=== PATIENT | female | born 1955 | race Caucasian/White ===

== ENCOUNTER → 2021-04-03 10:13 | Outpatient (BNVA) | payer MEDICARE, MEDICAID, SELFPAY | PROVIDERS: PCP Internal Medicine; Visit Provider Obstetrics & Gynecology ==

== ENCOUNTER 2021-05-12 08:08 | Outpatient (REF) | payer MEDICARE, MEDICAID, SELFPAY ==
--- NOTE | ~2021-05-12 | MM_ITS ---
EXAMINATION: BONE DENSITOMETRY CLINICAL INDICATION: Encounter for screening for osteoporosis. COMPARISON: None (current study represents initial baseline exam). TECHNIQUE: Using a [employer] DXA System (software version: 13.1) manufactured by [employer], dual-energy x-ray absorptiometry was performed of the lumbar spine and left hip. The images are of good technical quality. Summary results are attached. FINDINGS: AP SPINE L1-L4: There is dextrocurvature lumbar spine with multilevel degenerative changes which may cause overestimation of the lumbar bone mineral density. BMD 1.314 g/cm2, Z-score 2.9, T-score 1.1, normal. LEFT FEMUR, NECK: BMD 0.781 g/cm2, Z-score -0.3, T-score -1.8, osteopenia. LEFT FEMUR, TOTAL: BMD 0.851 g/cm2, Z-score 0.1, T-score -1.2, osteopenia. IDENTIFIED RISK FACTORS: Height loss. Low calcium intake. Menopause. HISTORY OF FRACTURE: None listed. MEDICATIONS: None listed. MM/XR DEXA axial skeleton IMPRESSION: 1. DIAGNOSIS: Osteopenia based on the lowest T-score value of -1.8 in the femoral neck applying World Health Organization criteria. 2. 10-YEAR FRACTURE RISK PREDICTION, FRAX: Major osteoporotic fracture (clinical spine, forearm, hip or shoulder) 10.3%. Hip fracture 1.4%. 3. Treatment Recommendations: NOF guidelines recommend consideration for treatment in postmenopausal women and men age 50 and older presenting with the following: -A hip or vertebral (clinical or morphometric) fracture. -T-score less than or equal to -2.5 at the femoral neck or spine after appropriate evaluation to exclude secondary causes. -Low bone mass at the hip or spine and a 10-year fracture probability by FRAX of greater than or equal to 3% for hip fracture or greater than or equal to 20% for major osteoporotic fracture based on the [place] adapted WHO algorithm. 4. Other Recommendations: All treatment decisions require clinical judgment and consideration of individual patient factors, including patient preferences, comorbidities, previous drug use, risk factors not captured in the FRAX model (e.g. frailty, falls, vitamin D deficiency, increased bone turnover, interval significant decline in bone density) and possible under or overestimation of fracture risk by FRAX. Additional medical evaluation for secondary cause of low bone mineral density may be appropriate. FUTURE SCAN RECOMMENDATION: People with diagnosed cases of osteoporosis or at high risk for fracture should have regular bone mineral density tests. For patients eligible for Medicare, routine testing is allowed once every 2 years. The testing frequency can be increased to one year for patients who have rapidly progressing disease, those who are receiving or discontinuing medical therapy to restore bone mass, or have additional risk factors.
--- NOTE | ~2021-05-12 | MM_ITS ---
EXAMINATION: MM SCREENING DIGITAL BREAST TOMOSYNTHESIS, BILATERAL CLINICAL INFORMATION: Screening. Asymptomatic. The lifetime risk of breast cancer based on the Tyrer-Cuzick Model is 6%. COMPARISON: Mammography: None TECHNIQUE: Digital breast tomosynthesis is performed in both the craniocaudal and mediolateral oblique views along with computer-aided detection (CAD). Synthesized 2D images are generated from the tomosynthesis. FINDINGS: The breasts are almost entirely fatty (ACR BI-RADS breast composition Category a). There are no significant masses, abnormal calcifications, or other abnormalities. MM/MM tomosynthesis screening BI IMPRESSION: No specific mammographic evidence to suggest malignancy. ASSESSMENT: BI-RADS 1: Negative RECOMMENDATION: Routine annual mammography screening. This patient's information was entered into a reminder system with a target due date for their next mammogram.
== END 2021-05-12 08:09 | disposition home or self-care (01) ==
LOC: HO.MAMMO 08:08
PROVIDERS: Visit Provider Obstetrics & Gynecology
DX: Z12.31 Encounter for screening mammogram for malignant neoplasm of breast (principal); Z13.820 Encounter for screening for osteoporosis; Z78.0 Asymptomatic menopausal state; R29.890 Loss of height; E83.51 Hypocalcemia
CPT/HCPCS: 77063; 77067; 77080

== ENCOUNTER → 2021-05-25 12:53 | Outpatient (BNVA) | payer MEDICARE, MEDICAID, SELFPAY | PROVIDERS: PCP Internal Medicine; Visit Provider Obstetrics & Gynecology | DX: Z13.89 Encounter for screening for other disorder (principal) | CPT/HCPCS: Q3014 ==

== ENCOUNTER 2021-05-29 20:09 | Emergency (ER) | payer MEDICARE, MEDICAID, SELFPAY ==
[2021-05-29 20:33] VITALS: BP 129/86; PULSE 91; RESP 18; TEMP 37.6; O2SAT 94; BMI 27.1
[2021-05-29 22:50] LABS: MANUAL DIFF FLAG NO
[2021-05-29 22:51] LABS: Basophils Percent Auto 0.6 % (0-2); Hematocrit 43.1 % (37-47); Hemoglobin 13.9 g/dl (12.0-16.0); Imm Gran Abs Auto 0.05 X10*3/uL (0.00-0.03); Imm Gran Pct Auto 1.5 % (0.0-0.4); Lymphocytes Absolute Auto 0.5 X10*3/uL (1.2-4.9); Lymphocytes Percent Auto 13.8 % (20-40); Mean Corpuscular HGB Conc 32.3 g/dl (31.0-35.0); Mean Corpuscular Hemoglobin 28.3 pg (27.0-33.0); Mean Corpuscular Volume 87.8 fL (80-98); Mean Platelet Volume 9.7 fL (9.4-12.3); Monocytes Absolute Auto 0.5 X10*3/uL (0.1-1.2); Monocytes Percent Auto 13.8 % (2-11); Neutrophils Absolute Auto 2.4 X10*3/uL (2.0-8.3); Neutrophils Percent Auto 70.3 % (45-73); Platelet Count 118 X10*3/uL (160-400); Red Blood Count 4.91 X10*6/uL (4.20-5.50); Red Cell Distribution Width 14.9 % (11.0-16.0); White Blood Count 3.4 X10*3/uL (4.8-10.8)
[2021-05-29 23:24] LABS: Alanine Aminotransferase 22 U/L (0-31); Albumin Level 4.2 g/dL (3.5-5.0); Alkaline Phosphatase 109 U/L (39-117); Anion Gap 15 (12-20); Aspartate Amino Transferase 24 U/L (5-31); Bilirubin Direct 0.2 mg/dL (0.0-0.5); Bilirubin Total 0.4 mg/dL (0.0-1.0); Blood Urea Nitrogen 15 mg/dL (9-16); Calcium 9.2 mg/dL (8.4-10.2); Carbon Dioxide 25 mmol/L (22-29); Chloride 101 mmol/L (96-108); Creatinine Clr Calc Pharmacy 51.3; Estimated Glomerular Filt Rate > 60; Glucose Random 115 mg/dL (60-115); Lipase 13 U/L (8-78); Potassium 4.5 mmol/L (3.3-5.1); Sodium 136 mmol/L (135-145); Total Protein 7.3 g/dL (6.5-8.0)
--- NOTE | 2021-05-29 23:56 | ED_ITS ---
HPI - General Adult General Chief complaint: General Medical Stated complaint: DEHYDRATION Time Seen by Provider: 05/29/21 23:56 Source: patient Mode of arrival: ambulatory Limitations: no limitations History of Present Illness HPI narrative: Patient has history of anxiety depression comes here with multiple complaint body aches chills, vomiting, headache not drinking enough fluids was seen at [facility] did a rapid COVID which was negative urine shows few ketones patient was sent here for IV hydration patient says she vomited only 2 times today no abdominal pain patient lives alone denies any urinary complain ts Related Data Home Medications Medication Instructions Recorded Confirmed aripiprazole 2 mg tablet 2 mg PO DAILY 04/03/21 04/03/21 bupropion HCl 100 mg tablet,12 hr 100 mg PO DAILY 04/03/21 04/03/21 sustained-release bupropion HCl 150 mg 24 hr tablet, 150 mg PO QAM 04/03/21 04/03/21 extended release clonazepam 0.5 mg tablet 0.5 mg PO BID PRN 04/03/21 04/03/21 clonazepam 1 mg tablet 0.5 mg PO BID PRN 04/03/21 04/03/21 ibuprofen 800 mg tablet 800 mg PO Q8H 04/03/21 04/03/21 lamotrigine 200 mg tablet 200 mg PO BEDTIME 04/03/21 04/03/21 nicotine 14 mg/24 hr daily 1 patch TOPICAL DAILY 04/03/21 04/03/21 transdermal patch ropinirole 0.5 mg tablet 0.5 mg PO TID 04/03/21 04/03/21 sertraline 100 mg tablet 150 mg PO DAILY 04/03/21 04/03/21 sodium,potassium,mag sulfates 17.5 ml PO 04/03/21 04/03/21 gram-3.13 gram-1.6 gram oral soln Allergies Allergy/AdvReac Type Severity Reaction Status Date / Time vancomycin [Vancomycin] Allergy Intermediate RASH Verified 05/29/21 20:33 Review of Systems Review of Systems: Yes all other systems are reviewed and are negative [facility] Past Medical History Medical History (Updated 05/29/21 @ 20:34 by Ursula Moralez RN) Anxiety Arthritis COVID-19 Depression Emphysema lung Sleep apnea Surgical History H/O LEEP H/O: myomectomy History of bladder surgery History of Knee joint replacement status Previous back surgery Tubal ligation status Family History Family History Sister Breast CA Social History Social History Alcohol intake: current Advance Directives: No Advance Directives Information Provided: No Physical Exam Vital Signs: Vital Signs: Last Vital Signs Temp 100.1 F 05/30/21 00:00 Pulse 84 05/30/21 00:00 Resp 16 05/30/21 00:00 BP 137/79 05/30/21 00:00 Pulse Ox 99 05/30/21 00:00 Body Mass Index 27.1 Appearance: Alert. Oriented X3. No acute distress. Eyes: PERRLA, No Nystagmus ENT: Pharynx normal. Oral Mucosa moist Neck: Normal inspection. Neck supple. CVS: Normal heart rate and rhythm. Pulses normal. Respiratory: No respiratory distress. Equal air entry bilateral, no wheezing/r ales/rhonchi Abdomen: Soft and nontender. Bowel sounds are present, no mass palpable, no CVA tenderness Skin: Skin warm and dry. Normal skin color. Normal skin turgor. Extremities: No lower extremity edema. No calf tenderness Neuro: Oriented X 3. No motor deficit. Medical Decision Making MDM Narrative Medical decision making narrative: Patient multiple complaints is drinking apple juice in the ER will give Zofran sublingual check the UA labs are stable Lab Data Lab results reviewed: Yes I reviewed the patient's lab results. Result diagrams: 05/29/21 22:41 05/29/21 22:41 Labs: Lab Results 05/29/21 05/29/21 05/30/21 Range/Units 22:41 22:41 00:30 WBC 3.4 L (4.8-10.8) X10*3/uL RBC 4.91 (4.20-5.50) X10*6/uL Hgb 13.9 (12.0-16.0) g/dl Hct 43.1 (37-47) % MCV 87.8 (80-98) fL MCH 28.3 (27.0-33.0) pg MCHC 32.3 (31.0-35.0) g/dl RDW 14.9 (11.0-16.0) % Plt Count 118 L (160-400) X10*3/uL MPV 9.7 (9.4-12.3) fL Immature Gran % (Auto) 1.5 H (0.0-0.4) % Neut % (Auto) 70.3 (45-73) % Lymph % (Auto) 13.8 L (20-40) % Burnett % (Auto) 13.8 H (2-11) % Eos % (Auto) 0.0 (0-4) % Baso % (Auto) 0.6 (0-2) % Lymph # (Auto) 0.5 L (1.2-4.9) X10*3/uL Burnett # (Auto) 0.5 (0.1-1.2) X10*3/uL Eos # (Auto) 0.0 (0.0-0.4) X10*3/uL Baso # (Auto) 0.0 (0.0-0.2) X10*3/uL Abs Immat Gran (auto) 0.05 H (0.00-0.03) X10*3/uL Absolute Neuts (auto) 2.4 (2.0-8.3) X10*3/uL Absolute Nucleated RBC 0.000 (0.0-0.012) X10*3/uL Nucleated RBC % (auto) 0.0 (0.0-0.2) /100WBC Sodium 136 (135-145) mmol/L Potassium 4.5 (3.3-5.1) mmol/L Chloride 101 (96-108) mmol/L Carbon Dioxide 25 (22-29) mmol/L Anion Gap 15 (12-20) BUN 15 (9-16) mg/dL Creatinine 0.83 (0.5-1.4) mg/dL Estim Creat Clear Calc 51.3 Estimated GFR > 60 Random Glucose 115 (60-115) mg/dL Calcium 9.2 (8.4-10.2) mg/dL Total Bilirubin 0.4 (0.0-1.0) mg/dL Direct Bilirubin 0.2 (0.0-0.5) mg/dL AST 24 (5-31) U/L ALT 22 (0-31) U/L Alkaline Phosphatase 109 (39-117) U/L Total Protein 7.3 (6.5-8.0) g/dL Albumin 4.2 (3.5-5.0) g/dL Lipase 13 (8-78) U/L Urine Color DARK YELLOW Urine Appearance CLEAR Urine pH 6.0 (5.0-8.0) Ur Specific [place] >= 1.030 H (1.005-1.025) Urine Protein 1+ H (NEG-TRACE) MG/DL Urine Glucose (UA) NEG (NEG) MG/DL Urine Ketones 40 (NEG) MG/DL Urine Blood 1+ H (NEG) Urine Nitrite NEG (NEG) Ur Leukocyte Esterase NEG (NEG) Urine RBC 1-4 (0) /HPF Urine WBC 1-4 (0-4) /HPF Ur Squamous Epith Cells 1+ /LPF Urine Bacteria 1+ /LPF Hyaline Casts 0-2 /LPF Urine Mucus 2+ /LPF Discharge Plan Discharge Prescriptions: No Action bupropion HCl 150 mg tablet extended release 24 hr 150 mg PO QAM RF: 0 ropinirole 0.5 mg tablet 0.5 mg PO TID RF: 0 aripiprazole 2 mg tablet 2 mg PO DAILY RF: 0 lamotrigine 200 mg tablet 200 mg PO BEDTIME RF: 0 clonazepam 1 mg tablet 0.5 mg PO BID PRNRF: 0 sertraline 100 mg tablet 150 mg PO DAILY RF: 0 bupropion HCl 100 mg tablet sustained-release 12 hr 100 mg PO DAILY RF: 0 clonazepam 0.5 mg tablet 0.5 mg PO BID PRNRF: 0 ibuprofen 800 mg tablet 800 mg PO Q8H RF: 0 Suprep Bowel Prep Kit 17.5-3.13-1.6 gram recon soln PO RF: 0 nicotine 14 mg/24 hr patch 24 hour 1 patch topical DAILY RF: 0
[2021-05-30] VITALS: BP 137/79; PULSE 84; RESP 16; TEMP 37.8; O2SAT 99
[2021-05-30 00:36] LABS: Glucose Urine UA NEG (NEG); Leukocyte Esterase Urine NEG (NEG); Nitrite Urine NEG (NEG); Specific Gravity - Urine >= 1.030 (1.005-1.025); Urine Blood 1+ (NEG); Urine Ketones 40 MG/DL (NEG); Urine Protein 1+ MG/DL (NEG-TRACE)
[2021-05-30] MEDS: 0.9 % Sodium Chloride 1,000 ML 999 ML IVCONT (00:36)
[2021-05-30 00:50] LABS: Appearance Urine CLEAR; Color Urine DARK YELLOW
[2021-05-30 00:57] LABS: Bacteria Urine 1+ /LPF; Hyaline Casts Urine 0-2 /LPF; Mucus Urine 2+ /LPF; Squamous Epithelial Cell Urine 1+ /LPF
--- NOTE | 2021-07-04 15:17 | P.PNPS_ITS ---
TMS Daily Progress Note Daily TMS Progress Note Date of Service: 07/04/21 Week #: 1 Treatment #(12-17): 5 PHQ-9 Pre-Treatment (12-14): 19 PHQ-9 Most Recent (12-14): 19 Reviewed: TMS Tech Note Reviewed Verification: remapping completed I have reviewed the TMS Lead Manufacturing Technician Note and agree with the contents. The patient remains a candidate to continue TMS treatment per protocol.
== END 2021-05-30 01:56 | disposition home or self-care (01) ==
PROVIDERS: Emergency Provider Internal Medicine; PCP Internal Medicine
DX: B34.9 Viral infection, unspecified (principal); F32.9 Major depressive disorder, single episode, unspecified; R50.9 Fever, unspecified; F41.9 Anxiety disorder, unspecified; Z79.899 Other long term (current) drug therapy
CPT/HCPCS: 36415; 80048; 80076; 81001; 83690; 85025; 96360; 99283; 99284

== ENCOUNTER 2021-08-29 11:00 | Outpatient (RCR) | payer MEDICARE, MEDICAID, SELFPAY ==
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
--- NOTE | 2021-07-07 15:19 | P.PNPS_ITS ---
TMS Daily Progress Note Daily TMS Progress Note Date of Service: 07/07/21 Week #: 2 Treatment #(12-17): 8 PHQ-9 Pre-Treatment (12-14): 19 PHQ-9 Most Recent (12-14): 15 Reviewed: TMS Tech Note Reviewed Verification: I have reviewed the TMS Progressive Care Manager Note and agree with the contents. The patient remains a candidate to continue TMS treatment per pro tocol. Post-dated note.
--- NOTE | 2021-07-07 15:21 | HO.TMSDAILY2 ---
TMS Daily Progress Note Daily TMS Progress Note Date of Service: 07/06/21 Week #: 2 Treatment #(12-17): 7 PHQ-9 Pre-Treatment (12-14): 19 PHQ-9 Most Recent (12-14): 15 Reviewed: TMS Tech Note Reviewed Verification: I have reviewed the TMS Oil Field Equipment Mechanic Note and agree with the contents. The patient remains a candidate to continue TMS treatment per protocol. Post-dated note.
--- NOTE | 2021-07-07 15:22 | HO.TMSDAILY2 ---
TMS Daily Progress Note Daily TMS Progress Note Date of Service: 07/05/21 Week #: 2 Treatment #(12-17): 6 PHQ-9 Pre-Treatment (12-14): 19 PHQ-9 Most Recent (12-14): 15 Reviewed: TMS Tech Note Reviewed Verification: I have reviewed the TMS Nurse Gynecology Note and agree with the contents. The patient remains a candidate to continue TMS treatment per protocol. Post-dated note.
--- NOTE | 2021-07-07 15:24 | P.PNPS_ITS ---
TMS Daily Progress Note Daily TMS Progress Note Date of Service: 07/04/21 Week #: 1 Treatment #(12-17): 5 PHQ-9 Pre-Treatment (12-14): 19 PHQ-9 Most Recent (12-14): 16 Reviewed: TMS Tech Note Reviewed Verification: I have reviewed the TMS Quality Assurance Assistant Note and agree with the contents. The patient remains a candidate to continue TMS treatment per pro tocol. Post-dated note. REMAPPING
--- NOTE | 2021-07-07 15:25 | HO.TMSDAILY2 ---
TMS Daily Progress Note Daily TMS Progress Note Date of Service: 07/03/21 Week #: 1 Treatment #(12-17): 4 PHQ-9 Pre-Treatment (12-14): 19 PHQ-9 Most Recent (12-14): 16 Reviewed: TMS Tech Note Reviewed Verification: I have reviewed the TMS Fuel Operator Note and agree with the contents. The patient remains a candidate to continue TMS treatment per protocol. Post-dated note.REMAPING
--- NOTE | 2021-07-07 15:27 | P.PNPS_ITS ---
TMS Daily Progress Note Daily TMS Progress Note Date of Service: 06/30/21 Week #: 1 Treatment #(12-17): 3 PHQ-9 Pre-Treatment (12-14): 19 PHQ-9 Most Recent (12-14): 19 Reviewed: TMS Tech Note Reviewed Verification: I have reviewed the TMS Marketing Communications Assistant Note and agree with the contents. The patient remains a candidate to continue TMS treatment per pr otocol. Post-dated note.
--- NOTE | 2021-07-07 15:27 | HO.TMSDAILY2 ---
TMS Daily Progress Note Daily TMS Progress Note Date of Service: 06/29/21 Week #: 1 Treatment #(12-17): 2 PHQ-9 Pre-Treatment (12-14): 19 PHQ-9 Most Recent (12-14): 19 Reviewed: TMS Tech Note Reviewed Verification: I have reviewed the TMS Wastewater Treatment Plant Chemist Note and agree with the contents. The patient remains a candidate to continue TMS treatment per protocol. Post-dated note.
--- NOTE | 2021-07-07 15:28 | P.PNPS_ITS ---
TMS Daily Progress Note Daily TMS Progress Note Date of Service: 06/28/21 Week #: 1 Treatment #(12-17): 1 PHQ-9 Pre-Treatment (12-14): 19 PHQ-9 Most Recent (12-14): 19 Reviewed: TMS Tech Note Reviewed Verification: I have reviewed the TMS Senior Engineering Tech Note and agree with the contents. The patient remains a candidate to continue TMS treatment per pr otocol. Post-dated note.
--- NOTE | 2021-07-10 11:26 | P.PNPS_ITS ---
TMS Daily Progress Note Daily TMS Progress Note Date of Service: 07/05/21 Week #: 2 Treatment #(12-17): 6 PHQ-9 Pre-Treatment (12-14): 19 PHQ-9 Most Recent (12-14): 15 Reviewed: TMS Tech Note Reviewed Verification: I have reviewed the TMS Network Strategist Note and agree with the contents. The patient remains a candidate to continue TMS treatment per pro tocol. Late entry for 07/05
--- NOTE | 2021-07-10 22:11 | HO.TMSDAILY2 ---
TMS Daily Progress Note Daily TMS Progress Note Date of Service: 07/10/21 Week #: 2 Treatment #(12-17): 9 PHQ-9 Pre-Treatment (12-14): 19 PHQ-9 Most Recent (12-14): 19 Reviewed: TMS Tech Note Reviewed Verification: I have reviewed the TMS Farm Operations Technical Director Note and agree with the contents. The patient remains a candidate to continue TMS treatment per protocol.
--- NOTE | 2021-07-11 21:38 | P.PNPS_ITS ---
TMS Daily Progress Note Daily TMS Progress Note Date of Service: 07/11/21 Week #: 2 Treatment #(12-17): 10 PHQ-9 Pre-Treatment (12-14): 19 PHQ-9 Most Recent (12-14): 19 Reviewed: TMS Tech Note Reviewed Verification: I have reviewed the TMS Glass Blowing Instructor Note and agree with the contents. The patient remains a candidate to continue TMS treatment per p anant.
--- NOTE | 2021-07-13 22:17 | P.PNPS_ITS ---
TMS Daily Progress Note Daily TMS Progress Note Date of Service: 07/13/21 Week #: 3 Treatment #(12-17): 11 PHQ-9 Pre-Treatment (12-14): 19 PHQ-9 Most Recent (12-14): 19 Reviewed: TMS Tech Note Reviewed Verification: I have reviewed the TMS Clay Processing Labourer Note and agree with the contents. The patient remains a candidate to continue TMS treatment per p anant.
--- NOTE | 2021-07-14 17:51 | HO.TMSDAILY2 ---
TMS Daily Progress Note Daily TMS Progress Note Date of Service: 07/14/21 Week #: 3 Treatment #(12-17): 13 PHQ-9 Pre-Treatment (12-14): 19 PHQ-9 Most Recent (12-14): 19 Reviewed: TMS Tech Note Reviewed Verification: I have reviewed the TMS Pest Controller Note and agree with the contents. The patient remains a candidate to continue TMS treatment per protocol.
--- NOTE | 2021-07-14 17:53 | HO.TMSDAILY2 ---
TMS Daily Progress Note Daily TMS Progress Note Date of Service: 07/14/21 Week #: 3 Treatment #(12-17): 13 PHQ-9 Pre-Treatment (12-14): 19 PHQ-9 Most Recent (12-14): 19 Reviewed: TMS Tech Note Reviewed Verification: I have reviewed the TMS Boat Outboard Engine Mechanic Note and agree with the contents. The patient remains a candidate to continue TMS treatment per protocol.
--- NOTE | 2021-07-18 23:11 | HO.TMSDAILY2 ---
TMS Daily Progress Note Daily TMS Progress Note Date of Service: 07/18/21 Week #: 3 Treatment #(12-17): 14 PHQ-9 Pre-Treatment (12-14): 19 PHQ-9 Most Recent (12-14): 19 Reviewed: TMS Tech Note Reviewed Verification: I have reviewed the TMS Seaport Planning Manager Note and agree with the contents. The patient remains a candidate to continue TMS treatment per protocol.
--- NOTE | 2021-07-20 00:15 | HO.TMSDAILY2 ---
TMS Daily Progress Note Daily TMS Progress Note Date of Service: 07/20/21 Week #: 3 Treatment #(12-17): 15 PHQ-9 Pre-Treatment (12-14): 19 PHQ-9 Most Recent (12-14): 19 Reviewed: TMS Tech Note Reviewed Verification: I have reviewed the TMS Threading Machine Feeder Automatic Note and agree with the contents. The patient remains a candidate to continue TMS treatment per protocol.
--- NOTE | 2021-07-31 22:02 | P.PNPS_ITS ---
TMS Daily Progress Note Daily TMS Progress Note Date of Service: 07/31/21 Week #: 4 Treatment #(12-17): 18 PHQ-9 Pre-Treatment (12-14): 19 PHQ-9 Most Recent (12-14): 19 Reviewed: TMS Tech Note Reviewed Verification: I have reviewed the TMS Lost And Found Clerk Note and agree with the contents. The patient remains a candidate to continue TMS treatment per p anant.
--- NOTE | 2021-08-01 21:56 | P.PNPS_ITS ---
TMS Daily Progress Note Daily TMS Progress Note Date of Service: 08/01/21 Week #: 4 Treatment #(12-17): 18 PHQ-9 Pre-Treatment (12-14): 19 PHQ-9 Most Recent (12-14): 19 Reviewed: TMS Tech Note Reviewed Verification: I have reviewed the TMS Tube And Rod Straightener Note and agree with the contents. The patient remains a candidate to continue TMS treatment per p anant.
--- NOTE | 2021-08-03 20:30 | HO.TMSDAILY2 ---
TMS Daily Progress Note Daily TMS Progress Note Date of Service: 08/02/21 Week #: 4 Treatment #(12-17): 20 PHQ-9 Pre-Treatment (12-14): 19 PHQ-9 Most Recent (12-14): 19 Reviewed: TMS Tech Note Reviewed Verification: I have reviewed the TMS Asset Specialist Note and agree with the contents. The patient remains a candidate to continue TMS treatment per protocol.
--- NOTE | 2021-08-03 20:31 | HO.TMSDAILY2 ---
TMS Daily Progress Note Daily TMS Progress Note Date of Service: 08/03/21 Week #: 5 Treatment #(12-17): 21 PHQ-9 Pre-Treatment (12-14): 19 PHQ-9 Most Recent (12-14): 19 Reviewed: TMS Tech Note Reviewed Verification: I have reviewed the TMS Electrical & Instrumentation Supervisor Note and agree with the contents. The patient remains a candidate to continue TMS treatment per protocol.
--- NOTE | 2021-08-03 20:34 | P.PNPS_ITS ---
TMS Daily Progress Note Daily TMS Progress Note Date of Service: 08/03/21 Week #: 5 Treatment #(12-17): 21 PHQ-9 Pre-Treatment (12-14): 19 PHQ-9 Most Recent (12-14): 19 Reviewed: TMS Tech Note Reviewed Verification: I have reviewed the TMS Sieve Maker Note and agree with the contents. The patient remains a candidate to continue TMS treatment per p anant.
--- NOTE | 2021-08-04 20:36 | P.PNPS_ITS ---
TMS Daily Progress Note Daily TMS Progress Note Date of Service: 08/04/21 Week #: 5 Treatment #(12-17): 22 PHQ-9 Pre-Treatment (12-14): 19 PHQ-9 Most Recent (12-14): 19 Reviewed: TMS Tech Note Reviewed Verification: I have reviewed the TMS Wireless Team Member Note and agree with the contents. The patient remains a candidate to continue TMS treatment per p anant.
--- NOTE | 2021-08-08 21:32 | P.PNPS_ITS ---
TMS Daily Progress Note Daily TMS Progress Note Date of Service: 08/08/21 Week #: 5 Treatment #(12-17): 24 PHQ-9 Pre-Treatment (12-14): 19 PHQ-9 Most Recent (12-14): 19 Reviewed: TMS Tech Note Reviewed Verification: I have reviewed the TMS Product Design Manager Note and agree with the contents. The patient remains a candidate to continue TMS treatment per p anant.
--- NOTE | 2021-08-09 21:56 | P.PNPS_ITS ---
TMS Daily Progress Note Daily TMS Progress Note Date of Service: 08/09/21 Week #: 5 Treatment #(12-17): 25 PHQ-9 Pre-Treatment (12-14): 19 PHQ-9 Most Recent (12-14): 19 Reviewed: TMS Tech Note Reviewed Verification: I have reviewed the TMS Stitch Bonding Machine Tender Helper Note and agree with the contents. The patient remains a candidate to continue TMS treatment per p anant.
--- NOTE | 2021-08-10 21:27 | P.PNPS_ITS ---
TMS Daily Progress Note Daily TMS Progress Note Date of Service: 08/10/21 Week #: 6 Treatment #(12-17): 26 PHQ-9 Pre-Treatment (12-14): 19 PHQ-9 Most Recent (12-14): 19 Reviewed: TMS Tech Note Reviewed Verification: I have reviewed the TMS [place] Note and agree with the contents. The patient remains a candidate to continue TMS treatment per p anant.
--- NOTE | 2021-08-11 21:21 | HO.TMSDAILY2 ---
TMS Daily Progress Note Daily TMS Progress Note Date of Service: 08/11/21 Week #: 6 Treatment #(12-17): 27 PHQ-9 Pre-Treatment (12-14): 19 PHQ-9 Most Recent (12-14): 19 Reviewed: TMS Tech Note Reviewed Verification: I have reviewed the TMS [place] Drawer Note and agree with the contents. The patient remains a candidate to continue TMS treatment per protocol.
--- NOTE | 2021-08-14 21:16 | HO.TMSDAILY2 ---
TMS Daily Progress Note Daily TMS Progress Note Date of Service: 08/14/21 Week #: 6 Treatment #(12-17): 28 PHQ-9 Pre-Treatment (12-14): 19 PHQ-9 Most Recent (12-14): 19 Reviewed: TMS Tech Note Reviewed Verification: I have reviewed the TMS Senior Regulatory Affairs Specialist Note and agree with the contents. The patient remains a candidate to continue TMS treatment per protocol.
--- NOTE | 2021-08-16 20:33 | HO.TMSDAILY2 ---
TMS Daily Progress Note Daily TMS Progress Note Date of Service: 08/16/21 Week #: 6 Treatment #(12-17): 29 PHQ-9 Pre-Treatment (12-14): 19 PHQ-9 Most Recent (12-14): 19 Reviewed: TMS Tech Note Reviewed Verification: I have reviewed the TMS Primary Special Education Teacher Note and agree with the contents. The patient remains a candidate to continue TMS treatment per protocol.
--- NOTE | 2021-08-17 21:36 | P.PNPS_ITS ---
TMS Daily Progress Note Daily TMS Progress Note Date of Service: 08/17/21 Week #: 6 Treatment #(12-17): 30 PHQ-9 Pre-Treatment (12-14): 19 PHQ-9 Most Recent (12-14): 19 Reviewed: TMS Tech Note Reviewed Verification: I have reviewed the TMS Senior Design Engineering Specialist Note and agree with the contents. The patient remains a candidate to continue TMS treatment per p anant.
--- NOTE | 2021-08-21 21:48 | P.PNPS_ITS ---
TMS Daily Progress Note Daily TMS Progress Note Date of Service: 08/21/21 Week #: 7 Treatment #(12-17): 32 PHQ-9 Pre-Treatment (12-14): 19 PHQ-9 Most Recent (12-14): 19 Reviewed: TMS Tech Note Reviewed Verification: I have reviewed the TMS Planning Consultant Note and agree with the contents. The patient remains a candidate to continue TMS treatment per p anant.
--- NOTE | 2021-08-22 21:47 | HO.TMSDAILY2 ---
TMS Daily Progress Note Daily TMS Progress Note Date of Service: 08/18/21 Week #: 7 Treatment #(12-17): 31 PHQ-9 Pre-Treatment (12-14): 19 PHQ-9 Most Recent (12-14): 19 Reviewed: TMS Tech Note Reviewed Verification: I have reviewed the TMS Real Estate Administrator Note and agree with the contents. The patient remains a candidate to continue TMS treatment per protocol.
--- NOTE | 2021-08-22 21:50 | HO.TMSDAILY2 ---
TMS Daily Progress Note Daily TMS Progress Note Date of Service: 08/22/21 Week #: 7 Treatment #(12-17): 33 PHQ-9 Pre-Treatment (12-14): 19 PHQ-9 Most Recent (12-14): 19 Reviewed: TMS Tech Note Reviewed Verification: I have reviewed the TMS Director Of Infection Prevention Note and agree with the contents. The patient remains a candidate to continue TMS treatment per protocol.
--- NOTE | 2021-08-24 22:29 | P.PNPS_ITS ---
TMS Daily Progress Note Daily TMS Progress Note Date of Service: 08/24/21 Week #: 8 Treatment #(12-17): 34 PHQ-9 Pre-Treatment (12-14): 19 PHQ-9 Most Recent (12-14): 19 Reviewed: TMS Tech Note Reviewed Verification: I have reviewed the TMS Customer Relations Assistant Note and agree with the contents. The patient remains a candidate to continue TMS treatment per p anant.
--- NOTE | 2021-08-25 22:34 | HO.TMSDAILY2 ---
TMS Daily Progress Note Daily TMS Progress Note Date of Service: 08/25/21 Week #: 8 Treatment #(12-17): 35 PHQ-9 Pre-Treatment (12-14): 19 PHQ-9 Most Recent (12-14): 19 Reviewed: TMS Tech Note Reviewed Verification: I have reviewed the TMS Poultry Scientist Note and agree with the contents. The patient remains a candidate to continue TMS treatment per protocol.
--- NOTE | 2021-08-29 22:44 | P.PNPS_ITS ---
TMS Daily Progress Note Daily TMS Progress Note Date of Service: 08/29/21 Week #: 8 Treatment #(12-17): 36 PHQ-9 Pre-Treatment (12-14): 19 PHQ-9 Most Recent (12-14): 19 Reviewed: TMS Tech Note Reviewed Verification: I have reviewed the TMS Bobtailer Note and agree with the contents. The patient remains a candidate to continue TMS treatment per p anant.
--- NOTE | 2021-08-31 11:03 | HO.TMSDAILY2 ---
TMS Daily Progress Note Daily TMS Progress Note Date of Service: 09/01/21 Treatment #(12-17): 36 PHQ-9 Pre-Treatment (12-14): 19 PHQ-9 Most Recent (12-14): 19 Verification: I have reviewed the TMS Physician Credentialing Specialist Note and agree with the contents. The patient remains a candidate to continue TMS treatment per protocol.
--- NOTE | 2021-08-31 14:54 | HO.TMSDAILY2 ---
TMS Daily Progress Note Daily TMS Progress Note Date of Service: 08/29/21 Week #: 8 Treatment #(12-17): 36 PHQ-9 Pre-Treatment (12-14): 19 PHQ-9 Most Recent (12-14): 19 Reviewed: TMS Tech Note Reviewed Verification: I have reviewed the TMS Direct Care Staffer Note and agree with the contents. The patient remains a candidate to continue TMS treatment per protocol.
--- NOTE | 2021-11-24 13:29 | P.PNPS_ITS ---
TMS Daily Progress Note Daily TMS Progress Note Date of Service: 08/07/21 Week #: 5 Treatment #(12-17): 23 PHQ-9 Pre-Treatment (12-14): 19 PHQ-9 Most Recent (12-14): 14 Reviewed: TMS Tech Note Reviewed Verification: I have reviewed the TMS Group Program Manager Note and agree with the contents. The patient remains a candidate to continue TMS treatment per pr otocol. Assessment and Plan (1) Depression, major, severe recurrence: Status: Acute (2) Generalized anxiety disorder: Status: Acute pt has been somewhat irritable discussed lowering wellbutrin
== END 2021-08-30 09:44 | disposition home or self-care (01) ==
LOC: HO.PTMS 11:00
PROVIDERS: Visit Provider Psychiatry & Neurology Psychiatry
DX: F33.2 Major depressive disorder, recurrent severe without psychotic features (principal); F41.1 Generalized anxiety disorder
CPT/HCPCS: 90868; 90869

== ENCOUNTER 2022-09-27 | Outpatient (REF) | payer MEDICARE, MEDICAID, SELFPAY | END 2022-09-27 00:01 | disposition home or self-care (01) | LOC: CF | PROVIDERS: Visit Provider Psychiatry & Neurology Psychiatry | DX: Z13.89 Encounter for screening for other disorder (principal) ==

== ENCOUNTER 2022-09-27 13:32 | Outpatient (REF) | payer MEDICARE, MEDICAID, SELFPAY ==
--- NOTE | ~2022-09-27 | MM_ITS ---
EXAMINATION: MM SCREENING DIGITAL BREAST TOMOSYNTHESIS, BILATERAL CLINICAL INFORMATION: Screening. Asymptomatic. COMPARISON: Mammography: May 12, 2021 and studies dating back to September 30, 2014 TECHNIQUE: Digital breast tomosynthesis is performed in both the craniocaudal and mediolateral oblique views along with computer-aided detection (CAD). Synthesized 2D images are generated from the tomosynthesis. FINDINGS: There are scattered areas of fibroglandular density (ACR BI-RADS breast composition Category b). There are no significant masses, abnormal calcifications, or other abnormalities. MM/MM tomosynthesis screening BI IMPRESSION: No significant changes from prior exam. ASSESSMENT: BI-RADS 1: Negative RECOMMENDATION: Routine annual mammography screening. This patient's information was entered into a reminder system with a target due date for their next mammogram.
== END 2022-09-27 13:33 | disposition home or self-care (01) ==
LOC: HO.MAMMO 13:32
PROVIDERS: PCP Internal Medicine; Visit Provider Obstetrics & Gynecology
DX: Z12.31 Encounter for screening mammogram for malignant neoplasm of breast (principal); F33.9 Major depressive disorder, recurrent, unspecified; F41.1 Generalized anxiety disorder
CPT/HCPCS: 77063; 77067; 90833; Q3014

== ENCOUNTER → 2023-01-16 15:47 | Outpatient (BNVA) | payer MEDICARE, MEDICAID, SELFPAY | PROVIDERS: PCP Internal Medicine; Visit Provider Psychiatry & Neurology Psychiatry | DX: F32.5 Major depressive disorder, single episode, in full remission (principal); F41.1 Generalized anxiety disorder | CPT/HCPCS: 99212 ==

== ENCOUNTER 2023-09-09 13:40 | Outpatient (AMB) | payer MEDICARE, MEDICAID, SELFPAY ==
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
== END 2023-09-09 14:54 | disposition home or self-care (01) ==
LOC: HO.HOP 13:40
PROVIDERS: PCP Internal Medicine; Visit Provider Psychiatry & Neurology Psychiatry
DX: F33.9 Major depressive disorder, recurrent, unspecified (principal); F41.1 Generalized anxiety disorder
CPT/HCPCS: 99214

== ENCOUNTER → 2023-09-09 13:40 | Outpatient (BNVA) | payer MEDICARE, MEDICAID, SELFPAY | PROVIDERS: PCP Internal Medicine; Visit Provider Psychiatry & Neurology Psychiatry | DX: F33.9 Major depressive disorder, recurrent, unspecified (principal); F41.1 Generalized anxiety disorder | CPT/HCPCS: 99212 ==

== ENCOUNTER 2023-12-19 17:02 | Outpatient (AMB) | payer MEDICARE, MEDICAID, SELFPAY ==
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
== END 2023-12-19 17:02 | disposition home or self-care (01) ==
LOC: HO.HOP 17:02
PROVIDERS: PCP Internal Medicine; Visit Provider Psychiatry & Neurology Psychiatry
DX: F33.2 Major depressive disorder, recurrent severe without psychotic features (principal); R41.0 Disorientation, unspecified
CPT/HCPCS: 99214

== ENCOUNTER → 2023-12-19 17:02 | Outpatient (BNVA) | payer MEDICARE, MEDICAID, SELFPAY | PROVIDERS: PCP Internal Medicine; Visit Provider Psychiatry & Neurology Psychiatry | DX: F33.9 Major depressive disorder, recurrent, unspecified (principal); A69.20 Lyme disease, unspecified; R41.0 Disorientation, unspecified; R41.3 Other amnesia ==

== ENCOUNTER 2024-01-02 07:45 | Outpatient (REF) | payer MEDICARE, MEDICAID, SELFPAY ==
[2024-01-02 08:10] LABS: MANUAL DIFF FLAG NO
[2024-01-02 08:13] LABS: Basophils Percent Auto 0.5 % (0-2); Eosinophils Absolute Auto 0.2 X10*3/uL (0.0-0.4); Eosinophils Percent Auto 3.6 % (0-4); Hematocrit 40.5 % (37.0-47.0); Imm Gran Abs Auto 0.03 X10*3/uL (0.00-0.03); Imm Gran Pct Auto 0.5 % (0.0-0.4); Lymphocytes Absolute Auto 1.5 X10*3/uL (1.2-4.9); Lymphocytes Percent Auto 24.4 % (20-40); Mean Corpuscular HGB Conc 32.1 g/dl (31.0-35.0); Mean Corpuscular Hemoglobin 28.1 pg (27.0-33.0); Mean Corpuscular Volume 87.7 fL (80.0-98.0); Mean Platelet Volume 9.3 fL (9.4-12.3); Monocytes Absolute Auto 0.4 X10*3/uL (0.1-1.2); Monocytes Percent Auto 6.3 % (2-11); Neutrophils Percent Auto 64.7 % (45-73); Platelet Count 202 X10*3/uL (160-400); Red Blood Count 4.62 X10*6/uL (4.20-5.50); Red Cell Distribution Width 14.1 % (11.0-16.0); White Blood Count 6.2 X10*3/uL (4.8-10.8)
[2024-01-02 08:17] LABS: Ammonia 25 umol/L (13-55)
[2024-01-02 08:33] LABS: Appearance Urine Clear; Color Urine Yellow; Glucose Urine UA Negative (Negative); Leukocyte Esterase Urine Negative (Negative); Nitrite Urine Negative (Negative); Urine Blood Negative (Negative); Urine Ketones Negative (Negative); Urine Protein Negative (Neg-Trace)
[2024-01-02 08:36] LABS: Alanine Aminotransferase 14 U/L (0-31); Albumin Level 4.1 g/dL (3.5-5.0); Alkaline Phosphatase 114 U/L (39-117); Anion Gap 11 (12-20); Aspartate Amino Transferase 16 U/L (5-31); Bilirubin Total 0.3 mg/dL (0.0-1.0); Blood Urea Nitrogen 23 mg/dL (9-16); Calcium 9.4 mg/dL (8.4-10.2); Carbon Dioxide 29 mmol/L (22-29); Chloride 106 mmol/L (96-108); Cholesterol 219 mg/dL (<200); Estimated Glomerular Filt Rate > 60; Glucose Fasting 98 mg/dL (60-99); HDL Cholesterol 60 mg/dL (>40); LDL Cholesterol Calculated 141 mg/dL (<100); Potassium 4.1 mmol/L (3.3-5.1); Sodium 142 mmol/L (135-145); Total Protein 7.4 g/dL (6.5-8.0); Triglycerides 94 mg/dL (<150)
[2024-01-02 08:50] LABS: TSH reflex Free T4 1.24 uIU/mL (0.32-4.0)
[2024-01-02 09:05] LABS: Folate 13.9 ng/mL (> or = 4.0); Vitamin B12 508 pg/mL (200-900)
[2024-01-06 00:44] LABS: Lamotrigine Lamictal 5.5 mcg/mL (2.5-15.0)
[2024-01-06 23:38] LABS: Lyme Blot 4.51 index
[2024-01-07 13:23] LABS: 18 KD (IgG) Band REACTIVE; 23 KD (IgG) Band NON-REACTIVE; 23 KD (IgM) Band REACTIVE; 28 KD (IgG) Band NON-REACTIVE; 30 KD (IgG) Band NON-REACTIVE; 39 KD (IgM) Band NON-REACTIVE; 39KD (IgG) Band REACTIVE; 41 KD (IgM) Band NON-REACTIVE; 41KD (IgG) Band REACTIVE; 45 KD (IgG) Band NON-REACTIVE; 58 KD (IgG) Band REACTIVE; 66 KD (IgG) Band NON-REACTIVE; 93 KD (IgG) Band NON-REACTIVE; Lyme Abs Screen POSITIVE; Lyme IgG Blot Interp NEGATIVE (NEGATIVE); Lyme IgM Blot Interp NEGATIVE (NEGATIVE)
== END 2024-01-02 07:46 | disposition home or self-care (01) ==
LOC: HO.LAB 07:45
PROVIDERS: PCP Internal Medicine; Visit Provider Psychiatry & Neurology Psychiatry
DX: F33.9 Major depressive disorder, recurrent, unspecified (principal); A69.20 Lyme disease, unspecified; R41.0 Disorientation, unspecified; R41.3 Other amnesia
CPT/HCPCS: 36415; 80053; 80061; 80175; 81003; 82140; 82607; 82746; 84443; 85025; 86617; 86618

== ENCOUNTER 2024-01-30 14:43 | Outpatient (AMB) | payer MEDICARE, MEDICAID, SELFPAY ==
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
== END 2024-01-30 16:21 | disposition home or self-care (01) ==
LOC: HO.HOP 14:43
PROVIDERS: PCP Internal Medicine; Visit Provider Psychiatry & Neurology Psychiatry
DX: R41.3 Other amnesia (principal); F33.9 Major depressive disorder, recurrent, unspecified; F41.1 Generalized anxiety disorder; A69.20 Lyme disease, unspecified
CPT/HCPCS: 90833; 99213

== ENCOUNTER → 2024-01-30 14:43 | Outpatient (BNVA) | payer MEDICARE, MEDICAID, SELFPAY | PROVIDERS: PCP Internal Medicine; Visit Provider Psychiatry & Neurology Psychiatry | DX: F41.1 Generalized anxiety disorder (principal); F33.9 Major depressive disorder, recurrent, unspecified; R41.3 Other amnesia; A69.20 Lyme disease, unspecified; Z71.89 Other specified counseling | CPT/HCPCS: 99212 ==

== ENCOUNTER 2024-05-14 14:55 | Outpatient (AMB) | payer MEDICARE, MEDICAID, SELFPAY ==
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
--- OUTSIDE RECORDS SUMMARY | 2024-05-14 14:57 | XMS_ITS | Continuity of Care Document ---
Author Organization [facility] Address [address] [place] [address]- Care Team Providers Care Head Banquet Waitress Name Role Phone Arleen LIRA, Max Christine Primary Care Physician [facility] - 07/14/21 [facility] [address] [place], [place] [address] Allergies, Adverse Reactions, Alerts Substance Reaction Severity Status vancomycin rash Active Immunizations Given and Recorded Vaccine Date Status Refusal Reason tetanus-diphtheria toxoids (Td) 01/01/19 Given tetanus-diphtheria toxoids (Td) 1 05/08/00 Given influenza virus vaccine, inactivated 2 08/15/18 Gi vinicio influenza virus vaccine, inactivated 3 09/23/17 Gi vinicio influenza virus vaccine, inactivated 4 01/04/15 Gi vinicio influenza virus vaccine, inactivated 08/03/13 Give n influenza virus vaccine, inactivated 11/24/12 Give n Pneumococcal Vaccine (oldterm) 01/10/09 Given Tet/Diphth/Acel, Pertussis (oldterm) 5 01/10/09 Gi vinicio Influenza Virus Vaccine (oldterm) 6 01/10/09 Given Influenza Virus Vaccine (oldterm) 7 10/14/07 Given 1Admin Note: per paper chart 2Result Comment: [08/15/2018] [id number] 3Result Comment: [09/23/2017] [id number] 4Admin Note: FLUZONE [id number] 5Admin Note: sanofi pasteur Vaccine information statement (05/29/06) given to patient. 6Admin Note: pt declined, unavailable 7Admin Note: Declined Medications Abilify 2 mg oral tablet 2 mg, 1, tablet, By Mouth, Daily, Refills 0, Maintenance, 01/18/20 16:32:00 EST Start Date: 01/18/20 Status: Ordered Klonopin 1 mg oral tablet 0.5 mg, 0.5, tablet, By Mouth, 2 times a day, PRN anxiety, 0 Refills, Maintenance Start Date: 01/10/09 Status: Ordered lamotrigine 200 mg oral tablet 1 tablet = 200 mg, By Mouth, Daily at bedtime, 0 Refills, Maintenance, 01/07/15 14:40:08 Start Date: 01/07/15 Status: Ordered nicotine 14 mg/24 hr transdermal film, extended release 1 patch, Topically, Daily, # 28 patch, 1 Refills, Acute, 05/16/20 17:42:00 EDT, [facility], 28, APPLY 1 PATCH TOPICALLY DAILY, 154.94, cm, 01/18/20 15:49:00 EST, Height, 61.1, kg, 07/09/18 8:13:00 EDT, Dry Weight Start Date: 05/16/20 Status: Ordered QUEtiapine 25 mg oral tablet TAKE 1 TO 2 TABLETS BY MOUTH AT BEDTIME Start Date: 01/18/20 Status: Ordered Requip 0.5 mg oral tablet 1.5, mg, 3, tablet, By Mouth, Daily at bedtime, 0, 0, 01/10/09 14:56:23, Print BISI Number, [id number], Constant Indicator Start Date: 01/10/09 Status: Ordered sertraline 100 mg oral tablet 1.5 tablet = 150 mg, Daily, 0 Refills, Maintenance, 07/01/18 11:09:34 EDT Start Date: 07/01/18 Status: Ordered TENS UNIT TENS UNIT, See Instructions, # 1 units, Refills 0, Tot. Refills 0, Maintenance, use QID and prn, 02/07/17 13:38:46, Compound Start Date: 02/07/17 Status: Ordered Wellbutrin XL 300 mg/24 hours oral tablet, extended release 1 tablet = 300 mg, By Mouth, Every 24 hours, 0 Refills, Maintenance, 06/01/14 9:32:04 Start Date: 06/01/14 Status: Ordered Problem List Condition Effective Dates Status Health Status Inform ant Acute Lyme disease(Confirmed) 06/18/21 Active Cervical dysplasia(Confirmed) Active Cervical spondylosis with radiculopathy(Confirmed) Active section(Confirmed) Active DDD (degenerative disc disea se), lumbar with deg arthritis changes 6 lumbar vert bodies(Confirmed) 03/27/13 Active Depression(Confirmed) Active Ex-cigarette smoker(Confirmed) 1994 Active Family history of breast cancer(Confirmed) 01/10/09 Active Helicobacter pylori (H. pylo ri) infection(Confirmed) Active Inguinal hernia-bilat repair(Confirmed) Active Lumbar radiculopathy - TLIF(Confirmed) 01/18/15 Active JACKSON - Obstructive sleep apnea(Confirmed) Active Glenohumeral arthritis with tendonitis(Confirmed) Active Restless legs syndrome(Confirmed) Active Lumbar scoliosis(Confirmed) Active TKR -Total prosthetic replac ement of knee joint using cement-left INfected 2006(Confirmed) 10/2005 Active Tubal ligation(Confirmed) Active Urinary incontinence(Confirmed) Active Social History Social History Type Response Smoking Status Former smoker; Numbe r of years: 44; Total pack years: 44; Started at age: 15; Stopped at age: 59; entered on: 03/21/18 Sex
--- OUTSIDE RECORDS SUMMARY | 2024-05-14 14:57 | XMS_ITS | Continuity of Care Document ---
Author Organization [facility] Address [address] [place] [address]- Care Team Providers Care Therapist Speech Name Role Phone Arleen LIRA, Max Christine Primary Care Physician [facility]): 11[facility]23 - 12/15/23 [facility] [address] [place], [place] [address] Allergies, Adverse Reactions, Alerts Substance Reaction Severity Status vancomycin allergic only if giv en IV rash Active Immunizations Given and Recorded Vaccine Date Status Refusal Reason tetanus/diphtheria/pertussis, acel(Tdap) 08/18/22 Recorded pneumococcal 20-valent conjugate vaccine 1 07/20/22 Given SARS-CoV-2 (COVID-19) mRNA BNT-162b2 vac 12/07/21 Recorded SARS-CoV-2 (COVID-19) mRNA BNT-162b2 vac 04/10/21 Recorded SARS-CoV-2 (COVID-19) mRNA BNT-162b2 vac 03/20/21 Recorded zoster vaccine, inactivated 09/07/21 Recorded tetanus-diphtheria toxoids (Td) 01/01/19 Given tetanus-diphtheria toxoids (Td) 2 05/08/00 Given influenza virus vaccine, inactivated 3 08/15/18 Gi vinicio influenza virus vaccine, inactivated 4 09/23/17 Gi vinicio influenza virus vaccine, inactivated 5 01/04/15 Gi vinicio influenza virus vaccine, inactivated 08/03/13 Give n influenza virus vaccine, inactivated 11/24/12 Give n Pneumococcal Vaccine (oldterm) 01/10/09 Given Tet/Diphth/Acel, Pertussis (oldterm) 6 01/10/09 Gi vinicio Influenza Virus Vaccine (oldterm) 7 01/10/09 Given Influenza Virus Vaccine (oldterm) 8 10/14/07 Given 1Result Comment: pt. tolerated inj. without complications....CO 2Admin Note: per paper chart 3Result Comment: [08/15/2018] [id number] 4Result Comment: [09/23/2017] [id number] 5Admin Note: FLUZONE [id number] 6Admin Note: sanofi pasteur Vaccine information statement (05/29/06) given to patient. 7Admin Note: pt declined, unavailable 8Admin Note: Declined Medications amoxicillin 500 mg oral tablet 4 tablet = 2,000 mg, By Mouth, Once, 1 hour before dentist, # 4 tablet, 1 Refills, Soft Stop, 11/15/23 16:16:00 EST, [facility]/pharmacy #[id number], Partial fill upon patient request if the prescription is for aschedule II opioid drug., 153, cm, 05/23/23 6:45:... Start Date: 11/15/23 Status: Ordered buPROPion 100 mg/12 hours (SR) oral tablet, extended release 1 tablet = 100 mg, By Mouth, Daily in AM, Maintenance, 06/20/22 18:27:00 EDT, Partial fill upon patient request if the prescription is for a schedule II opioid drug. Start Date: 06/20/22 Status: Ordered cholecalciferol 1000 intl units oral capsule 1 capsule = 25 mcg, By Mouth, Daily, Maintenance, 06/20/22 18:33:00 EDT, Capsule, Partial fill uponpatient request if the prescription is for a schedule II opioid drug. Start Date: 06/20/22 Status: Ordered clonazePAM 1 mg oral tablet 1 tablet = 1 mg, By Mouth, Daily in AM, Maintenance, 06/20/22 18:28:00 EDT, Partial fill upon patient request if the prescription is for a schedule II opioid drug. Start Date: 06/20/22 Status: Ordered lamotrigine 200 mg oral tablet 1 tablet = 200 mg, By Mouth, Daily at bedtime, 0 Refills, Maintenance, 01/07/15 14:40:08 Start Date: 01/07/15 Status: Ordered meloxicam 15 mg oral tablet 1 tablet = 15 mg, By Mouth, Daily, 0 Refills, Maintenance, 04/09/23 8:48:00 EDT, Partial fill upon patient request if the prescription is for a schedule II opioid drug. Start Date: 04/09/23 Status: Ordered Multivitamin 1 tablet, By Mouth, Daily, Maintenance, 06/20/22 18:33:00 EDT, Partial fill upon patient request ifthe prescription is for a schedule II opioid drug. Start Date: 06/20/22 Status: Ordered rOPINIRole 0.5 mg oral tablet 1 tablet = 0.5 mg, By Mouth, Daily at bedtime, Maintenance, 06/20/22 18:32:00 EDT, Tablet, Partial fill upon patient request if the prescription is for a schedule II opioid drug. Start Date: 06/20/22 Status: Ordered sertraline 100 mg oral tablet 1.5 tablet = 150 mg, By Mouth, Daily in AM, 0 Refills, Maintenance, 07/01/18 11:09:34 EDT Start Date: 07/01/18 Status: Ordered Tylenol PM By Mouth, Daily at bedtime, 0 Refills, Maintenance, 05/22/23 10:30:00 EDT, Partial fill upon patient request if the prescription is for a schedule II opioid drug. Start Date: 05/22/23 Status: Ordered Problem List Condition Confirmation Course Effective Dates Status H ealth Status Informant Acute Lyme disease Confirmed 06/18/21 Active Cervical dysplasia Confirmed Active Cervical spondylosis with radiculopathy Confirmed Active section Confirmed Active DDD (degenerative disc disease), lumbar with deg arthritis changes 6 lumbar vert bodies Confirmed 03/27/13 Active Depression Confirmed Active Ex-cigarette smoker Confirmed 1994 Active Family history of breast cancer Confirmed 01/10/09 Active Helicobacter pylori (H. pylori) infection Confirmed Active Inguinal hernia-bilat repair Confirmed Active Lumbar radiculopathy - TLIF Confirmed 01/18/15 Active JCAKSON - Obstructive sleep apnea Confirmed Active Glenohumeral arthritis with tendonitis Confirmed Active Restless legs syndrome Confirmed Active Lumbar scoliosis Confirmed Active TKR -Total prosthetic replacement of knee joint using cement-left INfected 2006 Confirmed 10/2005 Active Tubal ligation Confirmed Active Urinary incontinence Confirmed Active Social History Social History Type Response Smoking Status Former smoker; Numbe r of years: 44; Total pack years: 44; Started at age: 15; Stopped at age: 59; entered on: 03/21/18 Sex Patient Care team information Care Team Personnel Name: iNka Davalos RN Position: [facility] RN Member Role: Primary Care Nurse Name: Kathryn Castro RN Position: [facility] SN RN Member Role: Primary Care Nurse Name: Max Bacon MD Position: [facility] Physician - Primary Care Member Role: PCP Address: Address: [address] [place] [address] Adult & [place] [address]- Name: Yasmin Paige RN Position: S RN Member Role: Primary Care Nurse Name: Raheem Sam RN Position: S RN Member Role: Primary Care Nurse Name: Iris Harrington RN Position: S RN Member Role: Primary Care Nurse Name: Ainsley Rivers RN Position: [facility] RN Member Role: Primary Care Nurse Name: Tish Blank RN Position: [facility] RN Member Role: Primary Care Nurse Name: Eladio Bettencourt RN Position: [facility] RN Member Role: Primary Care Nurse Care Team Related Persons Name: LAURACHINA PUGA Address: [address] [place] [address] Name: VIVEK PATEL Address: home [address] [place] [id number]
--- OUTSIDE RECORDS SUMMARY | 2024-05-14 14:57 | XMS_ITS | Continuity of Care Document ---
Author Organization [facility] Address [address] [place] [address]- Care Team Providers Care Lead Javascript Developer Name Role Phone Arleen LIRA, Max Christine Primary Care Physician [phone] [facility]): [facility] - 10/20/[address] [address] Attending Physician: Kailyn Montoya Admitting Physician: AdmtrKailyn Referring Physician: Admtr, Ar8 Allergies, Adverse Reactions, Alerts Substance Reaction Severity Status vancomycin rash Active Immunizations Given and Recorded Vaccine Date Status Refusal Reason pneumococcal 20-valent conjugate vaccine 1 07/20/22 Given [...] Note: per paper chart 3Result Comment: [08/15/2018] [id number] 4Result Comment: [09/23/2017] [id number] 5Admin Note: FLUZONE [id number] 6Admin Note: sanofi pasteur Vaccine information statement (05/29/06) given to patient. 7Admin Note: pt declined, unavailable 8Admin Note: Declined Medications buPROPion 100 mg/12 hours (SR) oral tablet, extended release 1 tablet = 100 mg, By Mouth, Daily, Maintenance, 06/20/22 18:27:00 EDT, Partial fill upon [...] 01/07/15 14:40:08 Start Date: 01/07/15 Status: Ordered Multivitamin 1 tablet, By Mouth, Daily, Maintenance, 06/20/22 18:33:00 EDT, Partial fill upon patient request ifthe prescription is for a schedule II opioid drug. Start Date: 06/20/22 Status: Ordered omeprazole 20 mg oral delayed release tablet 1 tablet = 20 mg, By Mouth, Daily, Maintenance, 06/20/22 18:31:00 EDT, CR Tablet, Partial fill uponpatient request if the prescription is for a schedule II opioid drug. Start Date: 06/20/22 Status: Ordered oxyCODONE 5 mg oral tablet 5 mg, 1, tablet, By Mouth, Every 6 hours, PRN, Refills 0, Tot. Refills 0, Maintenance, Pain , Moderate, 06/21/22 6:26:00 EDT, Partial fill upon patient request if the prescription is for a schedule II opioid drug. Start Date: 06/21/22 Status: Ordered oxyCODONE 5 mg oral tablet 10 mg, 2, tablet, By Mouth, Every 6 hours, PRN, Refills 0, Tot. Refills 0, Maintenance, Pain , Severe, 06/21/22 6:26:00 EDT, Partial fill upon patient request if the prescription is for a schedule IIopioid drug. Start Date: 06/21/22 Status: Ordered rOPINIRole 0.5 mg oral tablet 1 tablet = 0.5 mg, By Mouth, 3 times a day, Maintenance, 06/20/22 18:32:00 EDT, Tablet, Partial fill upon patient request if the prescription is for a schedule II opioid drug. Start Date: 06/20/22 Status: Ordered sertraline 100 mg oral tablet 1.5 tablet = 150 mg, Daily, 0 Refills, Maintenance, 07/01/18 11:09:34 EDT Start Date: 07/01/18 Status: Ordered Problem List Condition Confirmation Course [...] Lumbar radiculopathy - TLIF Confirmed 01/18/15 Active JACKSON - Obstructive sleep apnea Confirmed Active Glenohumeral [...] Care team information Care Team Personnel Name: Kathryn Castro RN Position: [facility] RN Member Role: Primary Care Nurse Name: Max Bacon MD Position: [facility] Primary Care Physician Member Role: PCP Address: Address: [address] [place] [address] Adult & Pediatric [place], [place] [address] Name: Tish Blank RN Position: S RN Member Role: Primary Care Nurse Name: Eladio Bettencourt RN Position: [facility] RN Member Role: Primary Care Nurse Care Team Related Persons Name: CHINA MARTÍNEZ Address: home [address] [place] [address] Name: VIVEK PATEL Address: home [address] [place] [id number]
--- OUTSIDE RECORDS SUMMARY | 2024-05-14 14:57 | XMS_ITS | Continuity of Care Document ---
Author Organization [facility] Address [address] [place] [address]- Care Team Providers Care Manager Sports Name Role Phone Arleen LIRA, Max Christine Primary Care Physician [phone] [facility] 04[facility]22 - 05/02/22 [facility] [address] [place], [place] [address] Attending Physician: Admtr, Ar8 Allergies, Adverse Reactions, Alerts Substance Reaction Severity Status vancomycin rash Active Immunizations Given and Recorded Vaccine Date Status Refusal Reason SARS-CoV-2 (COVID-19) mRNA BNT-162b2 vac 12/07/21 Recorded [...] Note: per paper chart 2Result Comment: [08/15/2018] [id number] 3Result Comment: [09/23/2017] [id number] 4Admin Note: FLUZONE [id number] 5Admin Note: sanofi pasteur Vaccine information statement [...] 01/07/15 14:40:08 Start Date: 01/07/15 Status: Ordered naproxen 500 mg oral tablet 0 Refills, Maintenance, 03/19/22 14:17:00 EDT, Partial fill upon patient request if the prescription is for a schedule II opioid drug. Start Date: 03/19/22 Status: Ordered omeprazole 40 mg oral enteric coated capsule 1 capsule = 40 mg, By Mouth, Daily, 0 Refills, Maintenance, 04/11/22 12:14:00 EDT, Partial fill upon patient request if the prescription is for a schedule II opioid drug. Start Date: 04/11/22 Status: Ordered oxyCODONE 5 mg oral tablet See Instructions, 1 tablet By Mouth Every 4-6 hours. Use with caution while taking abilify and clonipin; may increase sedation and risk respiratory depression., Refills 0, Tot. Refills 0, Maintenance, 04/13/22 6:53:00 EDT, Instructions Replace Requir... Start Date: 04/13/22 Status: Ordered Requip 0.5 mg oral tablet [...]
--- OUTSIDE RECORDS SUMMARY | 2024-05-14 14:57 | XMS_ITS | Continuity of Care Document ---
Author Organization [facility] Address [address] [place] [address]- Care Team Providers Care Keller Machine Operator Name Role Phone Arleen LIRA, Max Christine Primary Care Physician [phone] [facility]counter [facility] Date(s): 03/07/23 - 04/06/23 [facility] [address] [place], [place] [address] Allergies, Adverse Reactions, Alerts Substance Reaction [...] Note: per paper chart 3Result Comment: [08/15/2018] [id number] 4Result Comment: [09/23/2017] [id number] 5Admin Note: FLUZONE [id number] 6Admin Note: sanofi pasteur Vaccine information statement [...] opioid drug. Start Date: 06/20/22 Status: Ordered fluconazole 150 mg oral tablet 1 tablet = 150 mg, By Mouth, Once, repeat dose if still having symptoms in 72 hours, # 3 tablet, 0 Refills, Soft Stop, 01/16/23 16:55:00 EST, Tablet, [facility]/pharmacy #[id number], Partial fill upon patient request if the prescription is for a schedule II opioid... Start Date: 01/16/23 Status: Ordered lamotrigine 200 mg oral tablet 1 tablet = 200 mg, By Mouth, Daily at bedtime, 0 Refills, Maintenance, 01/07/15 14:40:08 Start Date: 01/07/15 Status: Ordered Multivitamin 1 tablet, By Mouth, Daily, Maintenance, 06/20/22 18:33:00 EDT, Partial fill upon patient request ifthe prescription is for a schedule II opioid drug. Start Date: 06/20/22 Status: Ordered nicotine 14 mg/24 hr transdermal film, extended release 1 patch, Topically, Daily, # 28 patch, 1 Refills, Maintenance, 11/20/22 12:42:00 EST, [facility]/pharmacy #[id number], 28, 1 patch Topically Daily, 149.86, cm, 07/20/22 11:22:00 EDT, Height, 58.6, kg, 06/20/22 15:56:00 EDT, Dry Weight Start Date: 11/20/22 Status: Ordered omeprazole 20 mg oral delayed [...] Care team information Care Team Personnel Name: Nika Davalos RN Position: S RN Member Role: Primary Care Nurse Name: Kathryn Castro RN Position: [facility] SN RN Member Role: Primary Care Nurse Name: Max Bacon MD Position: [facility] Primary Care Physician Member Role: PCP Address: Address: [address] [place] [address] [facility] [address] Name: Yasmin Paige RN Position: S RN Member Role: Primary Care Nurse Name: Iris Harrington RN Position: S RN Member Role: Primary Care Nurse Name: Ainsley Rivers RN Position: S RN Member Role: Primary Care Nurse Name: Tish Blank RN Position: S RN Member Role: Primary Care Nurse Name: Eladio Bettencourt RN Position: S RN Member Role: Primary Care Nurse Care Team Related Persons Name: CHINA MARTÍNEZ Address: home [address] [place] [address] Name: VIVEK PATEL Address: home [address] [place] [id number]
--- OUTSIDE RECORDS SUMMARY | 2024-05-14 14:57 | XMS_ITS | Continuity of Care Document ---
Author Organization [facility] Address [address] [place] [address]- Care Team Providers Care Middle [employer] Reading Teacher Name Role Phone Arleen LIRA, Max Christine Primary Care Physician [phone] [facility] Date(s): 03/06/21 - 04/05/21 [facility] [address] [place], [place] [address] Attending Physician: Admtr, Ar8 Allergies, Adverse Reactions, [...] Note: per paper chart 2Result Comment: [08/15/2018] [id number] 3Result Comment: [09/23/2017] [id number] 4Admin Note: FLUZONE [id number] 5Admin Note: sanofi pasteur Vaccine information statement (05/29/06) given to patient. 6Admin Note: pt declined, unavailable 7Admin Note: Declined Medications Abilify 2 mg oral tablet 2 mg, 1, tablet, By Mouth, Daily, Refills 0, Maintenance, 01/18/20 16:32:00 EST Start Date: 01/18/20 Status: Ordered amoxicillin 500 mg oral capsule See Instructions, TAKE 4 CAPSULES BY MOUTH ONCE 1 HOUR PRIOR TO PROCEDURE, # 4 capsule, 4 Refills, Acute, [facility], 154.94, cm, 07/04/20 16:45:00 EDT, Height, 61.1, kg, 07/09/18 8:13:00 EDT, Dry Weight Start Date: 07/05/20 Status: Ordered Klonopin 1 mg oral tablet [...] patch, 1 Refills, Acute, 05/16/20 17:42:00 EDT, [facility], 28, APPLY 1 PATCH TOPICALLY DAILY, 154.94, [...] Effective Dates Status Health Status Inform ant Cervical dysplasia(Confirmed) Active Cervical spondylosis with radiculopathy(Confirmed) [...]
--- OUTSIDE RECORDS SUMMARY | 2024-05-14 14:57 | XMS_ITS | Continuity of Care Document ---
Author Organization [facility] Address [address] [place] [address]- Care Team Providers Care City Planning Teacher Name Role Phone Arleen LIRA, Max Christine Primary Care Physician [facility]counter [facility] Date(s): 05/08/23 - 06/07/23 [facility] [address] [place] [address]- Allergies, Adverse Reactions, Alerts Substance Reaction Severity [...] Note: per paper chart 3Result Comment: [08/15/2018] [id number] 4Result Comment: [09/23/2017] [id number] 5Admin Note: FLUZONE [id number] 6Admin Note: sanofi pasteur Vaccine information statement [...] Team Personnel Name: Nika Davalos RN Position: [facility] RN Member Role: Primary Care Nurse Name: Kathryn Castor RN Position: [facility] RN Member Role: Primary Care Nurse Name: Max Bacon MD Position: [facility] Physician - Primary Care Member Role: PCP Address: Address: [address] [place] [address] Adult [facility] Pediatric Medicine [address] Name: Yasmin Paige RN Position: [facility] RN Member Role: Primary Care Nurse Name: Raheem Sam RN Position: S RN Member Role: Primary Care Nurse Name: Iris Harrington RN Position: S RN Member Role: Primary Care Nurse Name: Ainsley Rivers RN Position: S RN Member Role: Primary Care Nurse Name: Tish Blank RN Position: S RN Member Role: Primary Care Nurse Name: Eladio Bettencourt RN Position: [facility] RN Member Role: Primary Care Nurse Care Team Related Persons Name: CHINA MARTÍNEZ Address: home [address] [place] [address] Name: VIVEK PATEL Address: home [address] [place] [address]
--- OUTSIDE RECORDS SUMMARY | 2024-05-14 14:57 | XMS_ITS | Continuity of Care Document ---
Author Organization [facility] Address [address] [place] [address]- Care Team Providers Care Brake Press Operator Name Role Phone Max Bacon MD Primary Care Physician [phone] [place] [facility] Date(s): 04/09/23 - 06/09/23 [facility] [address] [place] [address]- Attending Physician: Max Bacon MD Allergies, Adverse Reactions, Alerts Substance Reaction Severity [...] Note: per paper chart 3Result Comment: [08/15/2018] [id number] 4Result Comment: [09/23/2017] [id number] 5Admin Note: FLUZONE [id number] 6Admin Note: sanofi pasteur Vaccine information statement [...] Team Personnel Name: Nika Davalos RN Position: [facility] RN Member Role: Primary Care Nurse Name: Kathryn Castro RN Position: [facility] RN Member Role: Primary Care Nurse Name: Max Bacon MD Position: S Physician - Primary Care Member Role: PCP Address: Address: [address] [place] [address] Adult [place] [address]- Name: Yasmin Paige RN Position: S RN Member Role: Primary Care Nurse Name: Flaco RN, Raheem Devries Position: S RN Member Role: Primary Care [...] Persons Name: CHINA MARTÍNEZ Address: home [address] [place] [address] Name: VIVEK PATEL Address: home [address] [place] [address]
--- OUTSIDE RECORDS SUMMARY | 2024-05-14 14:57 | XMS_ITS | Continuity of Care Document ---
Author Organization [facility] Address [address] [place] [address]- Care Team Providers Care Artist And Repertoire Manager Name Role Phone Arleen LIRA, Max Christine Primary Care Physician [facility]counter [facility] Date(s): 08/13/22 - 09/12/22 [facility] [address] [address]- Attending Physician: Kailyn Montoya Admitting Physician: Kailyn Montoya Referring Physician: AdmtrKailyn Allergies, Adverse Reactions, Alerts Substance Reaction Severity [...] influenza virus vaccine, inactivated 4 09/23/17 Gi viniico influenza virus vaccine, inactivated 5 01/04/15 Gi vinicio influenza virus vaccine, inactivated 08/03/13 Give n influenza virus vaccine, inactivated 11/24/12 Give n Pneumococcal Vaccine (oldterm) 01/10/09 Given Tet/Diphth/Acel, Pertussis (oldterm) 6 01/10/09 Gi vinicio Influenza Virus Vaccine (oldterm) 7 01/10/09 Given Influenza Virus Vaccine (oldterm) 8 10/14/07 Given 1Result Comment: pt. tolerated inj. without complications....CO 2Admin Note: per paper chart 3Result Comment: [08/15/2018] [id number] 4Result Comment: [09/23/2017] [id number] 5Admin Note: FLUZONE [id number] 6Admin Note: sanofi pasteur Vaccine information statement [...] on: 03/21/18 Sex Patient Care team information Personnel Name: Max Bacon MD Address: Address: [facility] [place], [place] [address]
--- OUTSIDE RECORDS SUMMARY | 2024-05-14 14:57 | XMS_ITS | Continuity of Care Document ---
Author Organization [facility] ter Address [address] [place] [id number]- Care Team Providers Care Resaw Carriage Operator Name Role Phone Max Bacon MD Primary Care Physician Encounter [facility] Date(s): 12/19/22 - 12/23/[address] [id number] Discharge Disposition: A-D/C Home Attending Physician: Javan Ho MD Admitting Physician: Javan Ho MD Referring Physician: Javan Ho MD Allergies, Adverse Reactions, Alerts Substance Reaction [...] Note: per paper chart 3Result Comment: [08/15/2018] [id number] 4Result Comment: [09/23/2017] [id number] 5Admin Note: FLUZONE [id number] 6Admin Note: sanofi pasteur Vaccine information statement [...] patch, 1 Refills, Maintenance, 11/20/22 12:42:00 EST, [facility][id number], 28, 1 patch Topically Daily, 149.86, [...] Condition Confirmation Course Effective Dates Status H ealt Status Informant Acute Lyme disease Confirmed 06/18/21 [...] ligation Confirmed Active Urinary incontinence Confirmed Active Results Orders for Microbiology Reports Name Date Anaerobic Culture (ANAEROBIC CULTURE) 12/19/22 Anaerobic Culture (ANAEROBIC CULTURE) 12/19/22 Anaerobic Culture (ANAEROBIC CULTURE) 12/19/22 Anaerobic Culture (ANAEROBIC CULTURE) 12/19/22 Anaerobic Culture (ANAEROBIC CULTURE) 12/19/22 Anaerobic Culture (ANAEROBIC CULTURE) 12/19/22 Anaerobic Culture (ANAEROBIC CULTURE) 12/19/22 Anaerobic Culture (ANAEROBIC CULTURE) 12/19/22 Anaerobic Culture (ANAEROBIC CULTURE) 12/19/22 Tissue Culture w/ Gram Smear (TISSUE/BIO PSY CULT.) 12/19/22 Microbiology Reports (Most Recent Ten) TEST:Anaerobic Culture STATUS:Unauthenticated BODY SITE: SOURCE:SWAB1 COLLECTED DATE/TIME:12/19/22 1:37 PM Anaerobic Culture SPECIMEN DESCRIPTION : SWAB R SHOULDER TUBE 1 SPECIMEN RECEIVED ON A SWAB . SPECIAL REQUESTS : HOLD 28 DAYS CULTURE : 1+ CUTIBACTERIUM (FORMERLY PROPIONBACTERIUM) ACNES This isolate was identified using Maldi-TOF system SUSCEPTIBILITY TESTING NOT ROUTINELY PERFORMED ON THIS ISOLATE. IF SUSCEPTIBILITY IS REQUIRED ON THIS ISOLATE PLEASE CONTACT THE LABORATORY (EXT [id number]) WITHIN 72 HOURS OF RECEIPT OF REPORT. REPORT STATUS : PRELIMINARY REPORT TEST:Anaerobic Culture STATUS:Unauthenticated BODY SITE: SOURCE:SWAB1 COLLECTED DATE/TIME:12/19/22 1:37 PM Anaerobic Culture SPECIMEN DESCRIPTION : SWAB R SHOULDER 3 SPECIAL REQUESTS : HOLD 28 DAYS CULTURE : 1+ CUTIBACTERIUM (FORMERLY PROPIONBACTERIUM) ACNES This isolate was identified using Maldi-TOF system SUSCEPTIBILITY TESTING NOT ROUTINELY PERFORMED ON THIS ISOLATE. IF SUSCEPTIBILITY IS REQUIRED ON THIS ISOLATE PLEASE CONTACT THE LABORATORY (EXT [id number]) WITHIN 72 HOURS OF RECEIPT OF REPORT. REPORT STATUS : PRELIMINARY REPORT TEST:Anaerobic Culture STATUS:Unauthenticated BODY SITE: SOURCE:SWAB1 COLLECTED DATE/TIME:12/19/22 1:37 PM Anaerobic Culture SPECIMEN DESCRIPTION : SWAB INTERMEDULLARY HUMERUS SPECIMEN RECEIVED ON A SWAB . SPECIAL REQUESTS : HOLD 28 DAYS CULTURE : 2+ CUTIBACTERIUM (FORMERLY PROPIONBACTERIUM) ACNES This isolate was identified using Maldi-TOF system SUSCEPTIBILITY TESTING NOT ROUTINELY PERFORMED ON THIS ISOLATE. IF SUSCEPTIBILITY IS REQUIRED ON THIS ISOLATE PLEASE CONTACT THE LABORATORY (EXT [id number]) WITHIN 72 HOURS OF RECEIPT OF REPORT. REPORT STATUS : PRELIMINARY REPORT TEST:Anaerobic Culture STATUS:Unauthenticated BODY SITE: SOURCE:SWAB1 COLLECTED DATE/TIME:12/19/22 1:37 PM Anaerobic Culture SPECIMEN DESCRIPTION : SWAB BASEPLATE SPECIMEN RECEIVED ON A SWAB . SPECIAL REQUESTS : HOLD 28 DAYS CULTURE : 3+ CUTIBACTERIUM (FORMERLY PROPIONBACTERIUM) ACNES This isolate was identified using Maldi-TOF system SUSCEPTIBILITY TESTING NOT ROUTINELY PERFORMED ON THIS ISOLATE. IF SUSCEPTIBILITY IS REQUIRED ON THIS ISOLATE PLEASE CONTACT THE LABORATORY (EXT [id number]) WITHIN 72 HOURS OF RECEIPT OF REPORT. REPORT STATUS : PRELIMINARY REPORT TEST:Anaerobic Culture STATUS:Unauthenticated BODY SITE: SOURCE:SWAB1 COLLECTED DATE/TIME:12/19/22 1:37 PM Anaerobic Culture SPECIMEN DESCRIPTION : SWAB R SHOULDER SWAB 7 SPECIMEN RECEIVED ON A SWAB . SPECIAL REQUESTS : HOLD 28 DAYS CULTURE : NO ANAEROBES ISOLATED SO FAR. REPORT STATUS : PRELIMINARY REPORT TEST:Anaerobic Culture STATUS:Unauthenticated BODY SITE: SOURCE:SWAB1 COLLECTED DATE/TIME:12/19/22 1:37 PM Anaerobic Culture SPECIMEN DESCRIPTION : SWAB TUBE 5 SHOULDER SPECIMEN RECEIVED ON A SWAB . SPECIAL REQUESTS : HOLD 28 DAYS CULTURE : NO ANAEROBES ISOLATED SO FAR. REPORT STATUS : PRELIMINARY REPORT TEST:Anaerobic Culture STATUS:Unauthenticated BODY SITE: SOURCE:SWAB1 COLLECTED DATE/TIME:12/19/22 1:37 PM Anaerobic Culture SPECIMEN DESCRIPTION : SWAB R SHOULDER 2 SPECIAL REQUESTS : HOLD 28 DAYS CULTURE : NO ANAEROBES ISOLATED SO FAR. REPORT STATUS : PRELIMINARY REPORT TEST:Anaerobic Culture STATUS:Unauthenticated BODY SITE: SOURCE:SWAB1 COLLECTED DATE/TIME:12/19/22 1:37 PM Anaerobic Culture SPECIMEN DESCRIPTION : SWAB R SHOULDER TUBE 6 SPECIAL REQUESTS : HOLD 28 DAYS CULTURE : NO ANAEROBES ISOLATED SO FAR. REPORT STATUS : PRELIMINARY REPORT TEST:Anaerobic Culture STATUS:Unauthenticated BODY SITE: SOURCE:SWAB1 COLLECTED DATE/TIME:12/19/22 1:37 PM Anaerobic Culture SPECIMEN DESCRIPTION : SWAB R SHOULDER TUBE 4 SPECIAL REQUESTS : HOLD 28 DAYS CULTURE : NO ANAEROBES ISOLATED SO FAR. REPORT STATUS : PRELIMINARY REPORT TEST:Tissue/Biopsy Culture STATUS:Auth (Verified) BODY SITE: SOURCE:SWAB1 COLLECTED DATE/TIME:12/19/22 1:37 PM Tissue/Biopsy Culture SPECIMEN DESCRIPTION : SWAB RT SHOULDER TUBE 7 SPECIMEN RECEIVED ON A SWAB . SPECIAL REQUESTS : HOLD 28 DAYS GRAM STAIN : 1+ WHITE BLOOD CELLS 2+ RBC'S NO ORGANISMS SEEN CULTURE : NO GROWTH 2 DAYS REPORT STATUS : FINAL 12/21/2022 Vital Signs Most recent to oldest [Reference Range]: 1 2 3 Weight 57.1 kg (12/19/22 11:29 AM) Oxygen Saturation [94-100 %] 92 % *L* (12/23/22 12:04 PM) 93 % *L* (12/23/22 8:48 AM) 98 % (12/23/22 4:40 AM) Pulse Rate [55-90 bpm] 72 bpm (12/23/22 12:04 PM) 63 bpm (12/23/22 8:48 AM) 80 bpm (12/23/22 4:40 AM) Blood Pressure [90-138/55-84 mm Hg] 141/81mm Hg *H* (12/23/22 12:04 PM) 121/62mm Hg (12/23/22 8:48 AM) 127/63mm Hg (12/23/22 4:40 AM) Respiratory Rate [16-30 br/min] 18 br/min (12/23/22 12:04 PM) 16 br/min (12/23/22 11:44 AM) 18 br/min (12/23/22 8:48 AM) Temperature [96.8-100.4 DegF] 98.0 DegF (12/23/22 12:04 PM) 97.8 DegF (12/23/22 8:48 AM) 98.3 DegF (12/23/22 4:40 AM) Liters per Minute 2 L/min (12/21/22 7:00 PM) 2 L/min (12/21/22 4:04 AM) 2 L/min (12/20/22 11:49 PM) Mode of Delivery (Oxygen) Room air (12/23/22 12:04 PM) Room air (12/23/22 8:48 AM) Room air (12/23/22 4:40 AM) Blood pressure sites Leg, left (12/23/22 12:04 PM) Leg, left (12/23/22 8:48 AM) Leg, left (12/23/22 4:40 AM) Temperature Route Oral (12/23/22 12:04 PM) Oral (12/23/22 8:48 AM) Oral (12/23/22 4:40 AM) Dry Weight 57.1 kg (12/19/22 11:29 AM) Weight Obtained Via Standing scale (12/19/22 11:29 AM) Dry Weight Obtained Via Standing scale (12/19/22 11:29 AM) Social History Social History Type Response Smoking Status Former smoker; Numbe r of years: 44; Total pack years: 44; Started at age: 15; Stopped at age: 59; entered on: 03/21/18 Sex Note * Ainsley Rivers RN: PERFORM Event Display: Discharge/Transfer Note Hospital Authored Date: [id number] Nursing Discharge Note Entered On: 12/23/2022 13:39 EST Performed On: 12/23/2022 13:39 EST by Ainsley Rivers RN Nursing Discharge Note 2 Discharge Time : 12/23/2022 13:39 EST Discharge Level of Care at Discharge : Homehealth/VNA Discharge VNA/Hospice/Home Care(v001) : [facility] Discharge Medical Equip Companies(v001) : [place] [facility] Patient Left Unit Via : Ambulatory Patient Accompanied Off Unit with : Responsible adult DC Instructions Provided & Signed by Pt : Yes Patient Understands D/C Instructions : Yes Patient Instructions Discharge Signed : Yes Did Pt have Specialty Bed or Wound Vac : No Ainsley Rivers RN - 12/23/2022 13:39 EST * Elisa Emerson MD: PERFORM Event Display: Discharge/Transfer Note Hospital Authored Date: [id number] Admission Date: 12/19/2022 Discharge Date:12/23/2022 Admitting Diagnosis: right shoulder infected reverse TSA Final Diagnosis: 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 Her incision ishealing well, neurovascular status is intact. The patient is currently on oxycodone= for pain. She is tolerating this well, she has her prescription for home. She will follow up at [facility]. PICC line was placed 12/22/22 and infusion orders are in place for home IV abx per ID c/s recommendations. Medication List Active Medications Ordered BuPROpion: 100 mg, By Mouth, Daily. Ceftriaxone: 2 Gm, 0 mL/hr, IVPB, Every 24 hours Lamotrigine: 200 mg, By Mouth, Daily at bedtime. Melatonin: 6 mg, By Mouth, Daily at bedtime Oxycodone: 5 mg, By Mouth, Every 6 hours, PRN: Pain , Mild. Oxycodone: 10 mg, By Mouth, Every 6 hours, PRN: Pain , Moderate. Pantoprazole: 20 mg, By Mouth, Daily. Ropinirole: 0.5 mg, By Mouth, 3 times a day. Sertraline: 150 mg, By Mouth, Daily. Prescribed Nicotine: 1 patch, Topically, Daily, 28 patch, 1 Refill(s). Documented BuPROpion: 100 mg, 1 tablet, By Mouth, Daily. Cholecalciferol: 25 mcg, 1 capsule, By Mouth, Daily. Clonazepam: 1 mg, 1 tablet, By Mouth, Daily in AM. Lamotrigine: 200 mg, 1 tablet, By Mouth, Daily at bedtime. Multivitamin: 1 tablet, By Mouth, Daily. Omeprazole: 20 mg, 1 tablet, By Mouth, Daily. Oxycodone: 5 mg, 1 tablet, By Mouth, Every 6 hours, PRN: Pain , Moderate, 0 Refill(s). Oxycodone: 10 mg, 2 tablet, By Mouth, Every 6 hours, PRN: Pain , Severe, 0 Refill(s). Ropinirole: 0.5 mg, 1 tablet, By Mouth, 3 times a day. Sertraline: 150 mg, 1.5 tablet, Daily, 0 Refill(s). * Ainsley Rivers RN: PERFORM Event Display: Patient Education/Instruction Authored Date: [id number] Inpatient Adult Discharge Instructions [address] [address] Name: MAGALI MARTÍNEZ : 1955 Visit: 12/19/2022 14:45:00 Current Date: 12/23/2022 10:40 Account: [id number] Inpatient Adult Discharge Instructions We would like to thank you for allowing us to assist you with your healthcare needs. The following includes patient education materials and information regarding your injury/illness. Our entire staffstrives to provide an excellent experience for our patients and their families. PLEASE ENSURE YOU FOLLOW-UP PER THE INSTRUCTIONS BELOW! ?? YOUR OPINION IS IMPORTANT TO US! Please complete the survey you may receive by mail or email. Your feedback will be used to make improvements to the healthcare experiences of our patients and their families. Surveys are administered by [employer] ?? If further treatment with your primary care physician or another doctor is recommended, it is important for you to keep the appointment. Call your primary care physician or return to the Emergency Department immediately if your condition worsens, fails to improve, or new symptoms develop. If you need to find a doctor, you can call [facility] [employer] for a referral at [phone] or toll free at [phone] or log in to [email or web address].. ?? You can view and manage your care through the patient portal or by using a health care robin of your choosing. [employer] is a website that allows you to securely view your medical information including your hospital discharge summary, office visit summaries, medications and follow-up visits. You can also request appointments, renew medications, and request access to your medical information using a health care robin of your choosing, or just ask a question. You can enroll at [email or web address] or register during your next office visit. You have been discharged from [facility], Patient Care Unit: D3B. If you have any questions regarding these instructions after you leave, please call us and we will be happy to assist you. [facility] Your Care Team Attending Physician Vic LIRA, Javan Velazco Consulting Providers Ki LIRA, Elisa; Demetria LIRA, Guy Pop; Carley Huang MD Discharging Providers Ki LIRA, Elisa Reason for Admission RIGHT TOTAL SHOULDER ARTHROPLASTY INFECTION OVN Your Diagnosis infection right shoulder arthroplasty Tests Performed Below is a partial list of the tests performed during your hospitalization. You may have had other tests and procedures not included in this list. Please discuss all test results with your provider. CBC w/ Differential Comprehensive Metabolic Panel CRP ESR Primary Care Provider Max Bacon MD Advance Directive Health Care Proxy on File Yes - Health Care Proxy Discharge Vitals Temperature: 97.8 DegF Weight: 57.1 kg Pulse Rate: 63 bpm ?? Respiratory Rate: 18 br/min ?? Systolic Blood Pressure: 121 mm Hg ?? Diastolic Blood Pressure: 62 mm Hg ?? Oxygen Saturation:??93 %??Low ?? Studies Pending All tests and labs ordered during this hospital stay have been completed unless listed below. Please discuss all pending results with your provider listed above in these instructions. ?? Anaerobic Culture Fungal Culture, Nonrespiratory (FUNGAL CULT,NON-RESPIRATORY) What to do next Instructions From Your Doctor Discharge Orders Discharge Medications MAGALI MARTÍNEZ :1955 Visit Date:12/19/2022 Medications: Please continue your medications until treatment is completed or stopped by your provider. Medications not listed below should be discontinued. Discuss any questions related to medications with your provider. What How Much When Instructions Next Dose Unchanged BuPROpion (buPROPion 100 mg/ 12 hours (SR) oraltablet, extended release) 1 tab(s) Oral Daily Tomorrow 12/24/2022 Unchanged Cholecalciferol (cholecalciferol 1000 intl units oral capsule) 1 capsule Oral Daily Tomorrow 12/24/2022 Unchanged Clonazepam (clonazePAM 1 mg oral tablet) 1 tab(s) Oral Daily in the morning Tomorrow 12/24/2022 Unchanged Lamotrigine (lamotrigine 200 mg oral tablet) 1 tab(s) Oral Daily at Bedtime Tonight 12/24/2022 Unchanged Multivitamin 1 tab(s) Oral Daily Tomorrow 12/24/2022 Unchanged Nicotine (nicotine 14 mg/ 24 hr transdermal film, extended release) 1 patch(es) Topically Daily Tomorrow 12/24/2022 Unchanged Omeprazole (omeprazole 20 mg oral delayed release tablet) 1 tab(s) Oral Daily Tomorrow Unchanged Oxycodone (oxyCODONE 5 mg oral tablet) 2 tab(s) Oral Every 6 hours as needed for Pain , Severe Today 2pm Unchanged Oxycodone (oxyCODONE 5 mg oral tablet) 1 tab(s) Oral Every 6 hours as needed for Pain , Moderate Today 5pm Unchanged Ropinirole (rOPINIRole 0.5 mg oral tablet) 1 tab(s) Oral 3 times a day Today 3pm Unchanged Sertraline (sertraline 100 mg oral tablet) 1.5 tab(s) Daily Tomorrow 12/24/2022 Test Results Below is a partial list of the most recent Laboratory test results done prior to this discharge. You may have had other tests and procedures not included in this list. Please discuss all test resultswith your provider. CBC w/ Differential (12/20/2022) ???WBC - 10.9 k/mm3???RBC - 3.27 m/mm3???Hgb - 7.6 Gm/dL???Hct - 25.3 %???MCV - 77.4 femtoliters???MCH - 23.2 pg???MCHC - 30.0 g/dL???Platelet Count - 287 k/mm3???RDW-SD - 49.5 femtoliters???MPV - 9.5 femtoliters???Nucleated RBC (Automated) - 0.0 #/100 WBC'S???Abs. NRBC - 0.0 k/mm3???Abs. Neut - 8.3 k/mm3???Abs. Lymph - 1.6 k/mm3???Abs. [place] - 0.9 k/mm3???Abs. Eo - 0.0 k/mm3???Abs. Baso - 0.0 k/mm3???Neut % - 76.0 %???Lymph % - 14.4 %???[place] % - 8.5 %???Eos % - 0.3 %???Baso % - 0.3 %???Imm Gran- 0.5 %???Abs. Imm Gran - 0.1 k/mm3 Comprehensive Metabolic Panel (12/20/2022) ???Sodium - 137 mmol/L???Potassium - 4.6 mmol/L???Chloride - 99 mmol/L???Bicarbonate Level - 25 mmol/L???Anion Gap - 13???Glucose Level - 99 mg/dL???BUN - 12 mg/dL???Creatinine-Blood - 0.7 mg/dL???Estimated GFR Creatinine - 90 ML/MIN/1.73 M2???Calcium - 8.5 mg/dL???Protein, Total - 6.1 Gm/dL???Albumin - 3.4 Gm/dL???AG Ratio - 1.3???Alkaline Phosphatase - 95 units/L???AST (SGOT) - 11 units/L???ALT(SGPT) - 9 units/L???Bilirubin, Total - 0.2 mg/dL CRP (12/20/2022) ???C-Reactive Protein - 9.8 mg/dL ESR (12/20/2022) ???Sed Rate - 72 mm/hr Allergies (NKA means No Known Allergies) vancomycin??(rash) Problems Active Problems??(18) Acute Lyme disease?? Cervical dysplasia?? Cervical spondylosis with radiculopathy?? section?? DDD (degenerative disc disease), lumbar with ??deg arthritis ??changes ??6 lumbar vert bodies?? Depression?? Ex-cigarette smoker?? Family history of breast cancer?? Glenohumeral arthritis ??with ??tendonitis?? Helicobacter pylori (H. pylori) infection?? Inguinal hernia-bilat repair?? Lumbar radiculopathy - ??TLIF?? Lumbar scoliosis?? JACKSON - Obstructive sleep apnea?? Restless legs syndrome?? 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 Tubal ligation?? Urinary incontinence?? Education Materials Below is the list of Educational Leaflet Providered with your Discharge Instructions. Valuables and Belongings I fully understand and agree that [facility] accepts no responsibility for all my personal property including clothing, toilet articles, radios, jewelry, dentures, hearing aids, rings, money, or any other property that is in my possession or is brought to me after admission. I understand certain valuables may be placed in a hospital safe for a short period of time. I understand that the hospital is not liable for loss or damage due to accident, fire, or other natural occurrence while said property is in the safe. I accept full responsibility for any personal property that I keep with me, and will not hold the hospital responsible in case of loss or disappearance. I acknowledge that i have been encouraged to send valuables and belongings home. ?? Review of Valuable and Belonging List: With patient Date for Pt to Sign Valuables/Belongings: 12/19/22 11:29:00 ?? Other Discharge Information ? Case Management Discharge Plan?? Discharge Plan?? Discharge Agency Information?? Discharge Level of Care at Discharge: Homehealth/VNA Name of Agency #1: [facility] Discharge Arranged Transport Date/Time: 12/23/22 12:00:00 Service Start Date and Time #1: 12/23/22 12:00:00 Discharge VNA/Hospice/Home Care: [facility] Service Categories #1: Long-Term Discharge Medical Equipment Companies: [employer] [facility] Service Comments #1: You will be discharged home with Nursing for IV ABX infusion. ??A nurse wll beout on 09-29 to administer your antibiotic.. Please call [phone] with questions or concerns ?? Pulmonary Rehab Status?? Pulmonary Rehab Discharge Status?? Respiratory Rate: 18 br/min Discharge Medical Equipment Companies: [place] [facility] ? Common Emergency Awareness Tips IS IT A STROKE? Act FAST and Check for these signs: FACE Does the face look uneven? ARM Does one arm drift down? SPEECH Does their speech sound strange? TIME Call at any sign of stroke ?? Heart Attack Signs Chest discomfort: Most heart attacks involve discomfort in the center of the chest and lasts more than a few minutes, or goes away and comes back. It can feel like uncomfortable pressure, squeezing, fullness or pain. Discomfort in upper body: Symptoms can include pain or discomfort in one or both arms, back, neck, jaw or stomach. Shortness of breath: With or without discomfort. Other signs: Breaking out in a cold sweat, nausea, or lightheaded. Remember, MINUTES DO MATTER. If you experience any of these heart attack warning signs, call to get immediate medical attention! ?? Smoking can increase your chances of developing chronic health problems and can cause harmful effects to other family members in your house. If you smoke, you are strongly encouraged to quit. Please call [facility] [employer] [facility] at [phone] or [phone] ([phone]) or log in to [email or web address] for referrals to smoking cessation programs. ?? The National Suicide Prevention Hotline is available 10/06 if you or someone you know needs to find a reason to keep living. By calling 9-387-208-DB3 Mobile (7963) you'll be connected to a skilled, trained counselor at a crisis center in your area. INPATIENT DISCHARGE INSTRUCTIONS SIGNATURE PAGE LAURAMAGALI PUGA Location:[facility] Registration Date and Time:12/19/2022 14:45 EST Primary Care Physician: Max Bacon MD, I MAGALI MARTÍNEZ, have received the above patient education materials/instructions and have verbalized understanding. If ambulance or transport services are being used I further acknowledge being given a choice of service. ?? If you need to contact me, please call me at this number: . Patient/Gate Agent Name: Patient/Gate Agent Signature: Relationship to Patient: Witness Name/Signature: Date: * Zabrina Fenton RN: PERFORM Event Display: Procedures Invasive Line Authored Date: [id number] Vascular Access Insertion Entered On: 12/22/2022 12:21 EST Performed On: 12/22/2022 12:18 EST by Zabrina Fenton RN Vascular Access Insertion Date of Vascular Access Insertion : 12/22/2022 EST Procedure Location Vascular Access : IV Room W4 Person recording insertion : Mental Telepathist Mental Telepathist of Vascular Access : Zabrina Fenton RN Occupation of Vascular Access Mental Telepathist : Registered nurse Was shiftman a member of PICC/IV Team : Yes Zabrina Fenton RN - 12/22/2022 12:18 EST Procedural Comments Risk Factors and Labs Reviewed : Yes Anticoagulation Therapy : Yes Antiplatelet Therapy : No Zabrina Fenton RN - 12/22/2022 12:18 EST Was vascular access order placed : Yes Vascular Access Type : Central line Time Out Performed : Yes Time Out Data : Patient identified, Site verified, Procedure verified, Consent signed Reason for Vascular Access Insertion : Medication requires use of vascular access Suspected Vascular Access Infection : No, the access was not exchanged over a guide wire Vascular Access Procedure Check : Consent obtained Patient/Family Teaching done : Yes Hand Hygiene prior to insertion : Yes Maximal sterile barriers used : Mask, Sterile gown, Large sterile full body drape, Sterile gloves, Ultrasound sterile cover, Cap Sterile Field Maintained : Yes Skin Preparation : Chlorhexidine (CHG) Skin Prep dry at first skin puncture : Yes Antimicrobial coated catheter used : No Successful central line placement : Yes Vascular Access Catheter Type : PICC line Vascular Access Insertion Site : Upper extremity Vascular Access Insertion Side : Left Vascular Access Catheter Size : 4fr Vascular Access Catheter Length : 40 cm Vessel Identified By : Ultrasound Vascular Access Insertion Circumstance : Non-emergent Vascular Access Catheter Securement : Statlock Vascular Access Dressing : Occlusive Follow-up CXR : Not ordered CXR Comment : Tip of the PICC line SVC was confirmed via Sherlock 3CG technology Zabrina Fenton RN - 12/22/2022 12:18 EST DCP GENERIC CODE Suture needles : 0 Burns : 2 Scalpels : 1 Clamps : 1 Guide Wires : 1 Zabrina Fenton RN - 12/22/2022 12:18 EST Complications during Insertion : None Tolerated CLIP procedure well : Yes Insertion Attempts : 1 Vascular Access Device QA : SchoolTube CT PICC SL, L 4fr @ 40 cm. Vascular Access Device Lot Number : [id number] Vascular Access Device Code : [id number] Vascular Access Device Expiration Date : 12/18/2023 EST Vascular Access Insertion Comments : Mid bicep cir = 29 cm. PICC line is ready to use Zabrina Fenton RN - 12/22/2022 12:18 EST * Viv Mills RN: VERIFY, PERFORM, SIGN Event Display: Case Management Discharge Plan Authored Date: Patient: MAGALI MARTÍNEZ Age: 67 years Sex: Female : 1955 Associated Diagnoses: None Author: Viv Mills RN Discharge Plan Case Management Discharge Plan : Case Management Discharge Plan Data 12/22/2022 15:28 EST Discharge Level of Care at Discharge Homehealth/VNA Discharge VNA/Hospice/Home Care [facility] Discharge Medical Equipment Companies [employer] [place] [facility] Discharge Arranged Transport Date/Time 12/23/2022 12:00 Name of Agency #1 [facility] Service Categories #1 Long-Term Service Start Date and Time #1 12/23/2022 12:00 Service Comments #1 You will be discharged home with Nursing for IV ABX infusion. A nurse wll be out on 09-29 to administer your antibiotic.. Please call [phone] with questions or concerns Hospital Progress note * Elisa Emerson MD: PERFORM Event Display: Progress Note Hospital Authored Date: POD #4 s/p rev R rTSA S- pt seen at bedside, pain controlled, anticipating discharge to home today O- afeb 97.8 gen-NAD R arm- dsg c/d/i, sling in place, NVI RUE labs- none A/ POD #4 s/p rev R rTSA P/ pain control, tolerating oxy, has rx for home abx- ceftriaxone per ID c/s PICC line in place d/c plan- home today after abx f/u at [facility] to be arranged by Dr. Ho's office wound care-maintain dsg until f/u * Beth Wilson RN: SIGN, MODIFY, PERFORM, SIGN, VERIFY Event Display: Progress Note Hospital Authored Date: Patient: MAGALI MARTÍNEZ Age: 67 years Sex: Female : 1955 Associated Diagnoses: None Author: Beth Wilson RN Pt A&O x3. VSS. Pt educated on using the call encinas if experiencing CP. SOB, or dizziness and not to get oob without assistance. IV assessed and patent. Pt reports 7/10 right shoulder pain. 5mg Oxycodone given per order with good releif. Pt reports no numbness or tingling of the extremities. Right shoulder incision site is covered with gauze and is clean, dry, and intact. Pt has positive peripheral pulses, no chest pain, and no edema. Pt is safely independent with ambulation. Lung sounds areclear, pt on RA and denies SOB or recent cough. Pt BS x4, and denies nausea or vomiting. Pt abdomenis flat, soft, and non-tender to touch. Last BM 12/19. Pt ambulating to the BR and reports no complaints burning when urinating and no difficulty starting or maintaining a stream. Pt is not a fall riskand has no other safety concerns. Will continue with plan of care. Findings Problem Related to Alteration in Musculoskeletal : Alteration in Musculoskeletal Func/new 12/22/2022 23:00 EST Alteration in Musculoskeletal Related to Orthopedic Procedure, Other: Right shoulder arthroplasty Goals & Outcomes, Musculoskeletal Affected extremity will maintain color/motion/sensation, Pt able to perform ADL's to best of ability, Pt will ambulate safely with assistive device, Pt will be free from complications of immobility, Pt will demonstrate ability to participate in ADL's, Pt will report acceptable level of comfort/pain relief Interventions, Musculoskeletal Monitor patients ambulation status, monitor Color/Motion/Sensation, Encourage deep breathing & coughing exercises, Obtain assistive devices as needed, Teach & Encourage use of Incentive spirometer, Teach Pt/caregiver on ADL's & adaptive equipment BH Goals/Interventions, Musculoskeletal Yes Musculoskeletal, Problem Start 12/21/2022 22:09 Reviewed Plan with, Musculoskeletal Patient Patient Progression, Musculoskeletal Pt progressing according to plan . Discharge Information Case Management Discharge Plan : Case Management Discharge Plan Data 12/22/2022 15:28 EST Discharge Level of Care at Discharge Homehealth/VNA Discharge VNA/Hospice/Home Care [facility] Discharge [employer] [place] [facility] Discharge Arranged Transport Date/Time 12/23/2022 12:00 Name of Agency #1 [facility] Categories #1 Long-Term Service Start Date and Time #1 12/23/2022 12:00 Service Comments #1 You will be discharged home with Nursing for IV ABX infusion. A nurse wll be out on Saturday- to administer your antibiotic.. Please call [phone] with questions or concerns * Beth Wilson RN: PERFORM Event Display: Progress Note Hospital Authored Date: Pt had new onset of a hard round bump on top of the right foot. Good pedal pulse, no swelling, no redness, and skin is warm but not hot to the touch. Pt repots general discomfort of the right foot and right lower extremity. Pt expresses that this discomfort is unlike her restless leg syndrome. Pt given oxy for right shoulder pain and pt reports that the oxy does not help the right foot discomfort. She expresses the discomfort as not being able to settle down but it hurts to walk on it . She expresses concern that this is a new type of discomfort. Provider notified. Ice applied to the area. * Elisa Emerson MD: PERFORM Event Display: Progress Note Hospital Authored Date: POD #3 s/p revision R rTSA S/ pt seen at bedside, recent vomiting, challenges with nausea, awaiting PICC line placement O/ afeb 98.9 gen-NAD RUE- sling in place, NVI distally, fingers wwp, full ROM no swelling A/ POD #3 s/p revision R rTSA P/ pain control abx per ID c/s awaiting PICC line and watermaster abx plan zofran prescribed for n/v PRN * Elisa Emerson MD: PERFORM Event Display: Progress Note Hospital Authored Date: PICC line placement ordered * Elisa Emerson MD: PERFORM Event Display: Progress Note Hospital Authored Date: returned to bedside to complete forms for infusion company. plan initial PICC line use this afternoon for daily ceftriaxone dose, will get another dose tomorrow before discharge to home and then homeinfusion starting saturday. Patient Care team information Care Team Personnel Name: Nika Davalos RN Position: S RN Member Role: Primary Care Nurse Name: Kathryn Castro RN Position: [facility] RN Member Role: Primary Care Nurse Name: Max Bacon MD Position: [facility] Primary Care Physician Member Role: PCP Address: Address: [address] [place] [address] Adult [place] [address]- Name: Yasmin Paige RN Position: S RN [...] Care Nurse Care Team Related Persons Name: MAURICIO CHINA Address: home [address] [place] [address] Name: VIVEK PATEL Address: home [address] [place] [address]
--- OUTSIDE RECORDS SUMMARY | 2024-05-14 14:57 | XMS_ITS | Continuity of Care Document ---
Author Organization [facility] Address [address] [place] [address]- Care Team Providers Care Clerical Coordinator Name Role Phone Arleen LIRA, Max Christine Primary Care Physician [facility]counter [facility] Date(s): 06/30/21 - 07/30/21 [facility] [address] [place] [id number] Attending Physician: Kailyn Montoya Admitting Physician: Kailyn [...] Note: per paper chart 2Result Comment: [08/15/2018] [id number] 3Result Comment: [09/23/2017] [id number] 4Admin Note: FLUZONE [id number] 5Admin Note: sanofi pasteur Vaccine information statement [...] Refills, Acute, 05/16/20 17:42:00 EDT, [facility], 28, APPLY 1 PATCH TOPICALLY DAILY, 154.94, [...]
--- OUTSIDE RECORDS SUMMARY | 2024-05-14 14:57 | XMS_ITS | Continuity of Care Document ---
Author Organization [facility] Address [address] [place] [address]- Care Team Providers Care Solution Coordinator Name Role Phone Max Bacon MD Primary Care Physician Encounter [facility] [place] [facility] Date(s): 07/20/22 - 07/27/22 [facility] [address] [place] [address]- Attending Physician: Max Bacon MD Allergies, Adverse [...] 01/10/09 Given Influenza Virus Vaccine (oldterm) 8 11/27/07 Given 1Result Comment: pt. tolerated inj. without complications....CO 2Admin Note: per paper chart 3Result Comment: [08/15/2018] [id number] 4Result Comment: [09/23/2017] [id number] 5Admin Note: FLUZONE [id number] 6Admin Note: sanofi pasteur Vaccine information statement [...] Date: 07/01/18 Status: Ordered Problem List Condition Effective Dates [...] Active Tubal ligation(Confirmed) Active Urinary incontinence(Confirmed) Active Vital Signs Most recent to oldest [Reference Range]: 1 Height 149.86 cm (07/20/22 11:22 AM) Weight 57.5 kg (07/20/22 11:22 AM) Oxygen Saturation [94-100 %] 100 % (07/20/22 11:22 AM) Pulse Rate [55-90 bpm] 87 bpm (07/20/22 11:22 AM) Body Mass Index [18.5-24.99] 25.6 *H* (07/20/22 11:22 AM) Blood Pressure [90-138/55-84 mm Hg] 112/ 68mm Hg (07/20/22 11:22 AM) Mode of Delivery (Oxygen) Room air (07/20/22 11:22 AM) Blood pressure sites Arm, left (07/20/22 11:22 AM) Weight Obtained Via Standing scale (07/20/22 11:22 AM) Social History Social History Type Response Smoking Status Former smoker; Shon r of years: 44; Total pack years: 44; Started at age: 15; Stopped at age: 59; entered on: 03/21/18 Sex Care Team Personnel Name: Max Bacon MD Address: [address] [place] [address] Adult & Pediatric Medicine [address]
--- OUTSIDE RECORDS SUMMARY | 2024-05-14 14:57 | XMS_ITS | Continuity of Care Document ---
Author Organization [facility] Address [address] [place] [address]- Care Team Providers Care Suspension Cord Tier Name Role Phone Max Bacon MD Primary Care Physician [phone] [place] [facility] [place] Date(s): 06/20/22 - 06/21/[address] [address] Discharge Disposition: A-D/C Home Attending Physician: [...] Note: per paper chart 2Result Comment: [08/15/2018] [id number] 3Result Comment: [09/23/2017] [id number] 4Admin Note: FLUZONE [id number] 5Admin Note: sanofi pasteur Vaccine information statement (05/29/06) given to patient. 6Admin Note: pt declined, unavailable 7Admin Note: Declined Medications buPROPion 100 mg/12 hours [...] opioid drug. Start Date: 06/20/22 Status: Ordered HYDROmorphone Inj 0.5 mg, Injection, IV Push Slowly, Every 4 hours, PRN for Pain , Severe, Routine, 06/20/22 13:11:00EDT Start Date: 06/20/22 Stop Date: 06/22/22 Status: Discontinued lamotrigine 200 mg oral tablet 1 tablet [...] IIopioid drug. Start Date: 06/21/22 Status: Ordered oxyCODONE 5 mg oral tablet 10 mg, Tablet, By Mouth, Every 6 hours, PRN for Pain , Severe, Routine, 06/20/22 13:11:00 EDT Start Date: 06/20/22 Stop Date: 06/22/22 Status: Discontinued rOPINIRole 0.5 mg oral tablet 1 tablet [...] Active Tubal ligation(Confirmed) Active Urinary incontinence(Confirmed) Active Results Orders for Microbiology Reports Name Date Anaerobic Culture (ANAEROBIC CULTURE) 06/20/22 Fungal Culture, Nonrespiratory (FUNGAL C ULT,NON-RESPIRATORY) 06/20/22 Tissue Culture w/ Gram Smear (TISSUE/BIO PSY CULT.) 06/20/22 Anaerobic Culture (ANAEROBIC CULTURE) 06/20/22 Fungal Culture, Nonrespiratory (FUNGAL C ULT,NON-RESPIRATORY) 06/20/22 Tissue Culture w/ Gram Smear (TISSUE/BIO PSY CULT.) 06/20/22 Microbiology Reports TEST:Anaerobic Culture STATUS:Unauthenticated BODY SITE: SOURCE:E SWAB COLLECTED DATE/TIME:06/20/22 11:00 AM Anaerobic Culture SPECIMEN DESCRIPTION : E SWAB RIGHT SHOULDER SOFT TISSUE SPECIAL REQUESTS : OR SPECIMEN CULTURE : NO ANAEROBES ISOLATED SO FAR. REPORT STATUS : PRELIMINARY REPORT TEST:Tissue/Biopsy Culture STATUS:Unauthenticated BODY SITE: SOURCE:E SWAB COLLECTED DATE/TIME:06/20/22 11:00 AM Tissue/Biopsy Culture SPECIMEN DESCRIPTION : E SWAB RIGHT SHOULDER SOFT TISSUE SPECIAL REQUESTS : OR SPECIMEN GRAM STAIN : 2+ POLYMORPHONUCLEAR LEUKOCYTES NO ORGANISMS SEEN CULTURE : NO GROWTH TO DATE REPORT STATUS : PRELIMINARY REPORT TEST:Fungal Culture, Non-Respiratory STATUS:Unauthenticated BODY SITE: SOURCE:E SWAB COLLECTED DATE/TIME:06/20/22 11:00 AM Fungal Culture, Non-Respiratory SPECIMEN DESCRIPTION : E SWAB RIGHT SHOULDER SOFT TISSUE SPECIAL REQUESTS : OR SPECIMEN DIRECT EXAM : NO FUNGAL ELEMENTS OBSERVED CULTURE : NO FUNGI ISOLATED AFTER 1 DAY REPORT STATUS : PRELIMINARY REPORT TEST:Anaerobic Culture STATUS:Unauthenticated BODY SITE: SOURCE:E SWAB COLLECTED DATE/TIME:06/20/22 10:52 AM Anaerobic Culture SPECIMEN DESCRIPTION : E SWAB RIGHT SHOULDER CAPSULE SPECIAL REQUESTS : OR SPECIMEN CULTURE : NO ANAEROBES ISOLATED SO FAR. REPORT STATUS : PRELIMINARY REPORT TEST:Fungal Culture, Non-Respiratory STATUS:Unauthenticated BODY SITE: SOURCE:E SWAB COLLECTED DATE/TIME:06/20/22 10:52 AM Fungal Culture, Non-Respiratory SPECIMEN DESCRIPTION : E SWAB RIGHT SHOULDER CAPSULE SPECIAL REQUESTS : OR SPECIMEN DIRECT EXAM : NO FUNGAL ELEMENTS OBSERVED CULTURE : NO FUNGI ISOLATED AFTER 1 DAY REPORT STATUS : PRELIMINARY REPORT TEST:Tissue/Biopsy Culture STATUS:Unauthenticated BODY SITE: SOURCE:E SWAB COLLECTED DATE/TIME:06/20/22 10:52 AM Tissue/Biopsy Culture SPECIMEN DESCRIPTION : E SWAB RIGHT SHOULDER CAPSULE SPECIAL REQUESTS : OR SPECIMEN GRAM STAIN : 1+ POLYMORPHONUCLEAR LEUKOCYTES NO ORGANISMS SEEN CULTURE : NO GROWTH TO DATE REPORT STATUS : PRELIMINARY REPORT Vital Signs Most recent to oldest [Reference Range]: 1 2 3 Height 149.86 cm (06/21/22 8:58 AM) 149.86 cm (06/20/22 3:55 PM) 149.86 cm (06/20/22 8:40 AM) Weight 58.6 kg (06/20/22 3:55 PM) 59.09 kg (06/20/22 8:40 AM) 59.09 kg (06/19/22 2:46 PM) Oxygen Saturation [94-100 %] 91 % *L* (06/21/22 8:58 AM) 92 % *L* (06/21/22 7:00 AM) 95 % (06/21/22 3:00 AM) Pulse Rate [55-90 bpm] 75 bpm (06/21/22 8:58 AM) 70 bpm (06/21/22 7:00 AM) 67 bpm (06/21/22 3:00 AM) Body Mass Index [18.5-24.99] 26.09 *H* (06/20/22 3:55 PM) 26.31 *H* (06/20/22 8:40 AM) 26.31 *H* (06/19/22 2:46 PM) Blood Pressure [90-138/55-84 mm Hg] 102/66mm Hg (06/21/22 8:58 AM) 96/51mm Hg (06/21/22 7:00 AM) 97/55mm Hg (06/21/22 3:00 AM) Respiratory Rate [16-30 br/min] 18 br/min (06/21/22 12:20 PM) 18 br/min (06/21/22 9:58 AM) 20 br/min (06/21/22 9:28 AM) Temperature [96.8-100.4 DegF] 98.7 DegF (06/21/22 8:58 AM) 97.7 DegF (06/21/22 7:00 AM) 98.2 DegF (06/21/22 3:00 AM) Liters per Minute 2 L/min (06/21/22 3:00 AM) 2 L/min (06/20/22 11:00 PM) 2 L/min (06/20/22 7:00 PM) Mode of Delivery (Oxygen) Room air (06/21/22 7:00 AM) Nasal cannula (06/21/22 3:00 AM) Nasal cannula (06/20/22 11:00 PM) Blood pressure sites Arm, right (06/21/22 8:58 AM) Arm, left (06/21/22 7:00 AM) Arm, left (06/21/22 3:00 AM) Temperature Route Oral (06/21/22 8:58 AM) Oral (06/21/22 7:00 AM) Oral (06/21/22 3:00 AM) Dry Weight 58.6 kg (06/20/22 3:55 PM) 58.5 kg (06/20/22 8:40 AM) 59.09 kg (06/19/22 2:46 PM) Weight Obtained Via Patient/family state d (06/19/22 2:46 PM) Dry Weight Obtained Via Standing scale (06/20/22 8:40 AM) Patient/family stated (06/19/22 2:46 PM) Social History Social History Type Response Smoking Status Former smoker; Numbe r of years: 44; Total pack years: 44; Started at age: 15; Stopped at age: 59; entered on: 03/21/18 Sex
--- OUTSIDE RECORDS SUMMARY | 2024-05-14 14:57 | XMS_ITS | Continuity of Care Document ---
Author Organization [facility] Address [address] [place] [address]- Care Team Providers Care Retail Pharmacy Manager Name Role Phone Arleen LIRA, Max Christine Primary Care Physician [facility] Date[facility]s): 04/07/24 - 05/07/24 [facility] [address] [place] [address]- Allergies, Adverse Reactions, Alerts Substance Reaction Severity [...] Note: per paper chart 3Result Comment: [08/15/2018] [id number] 4Result Comment: [09/23/2017] [id number] 5Admin Note: FLUZONE [id number] 6Admin Note: sanofi pasteur Vaccine information statement (05/29/06) given to patient. 7Admin Note: pt declined, unavailable 8Admin Note: Declined Medications aspirin 81 mg oral capsule 1 capsule = 81 mg, By Mouth, 2 times a day, PRN as needed for pain, not to exceed 12 capsules/day, # 30 capsule, 0 Refills, Maintenance, 03/26/24 11:50:00 EDT, Capsule, [facility]/pharmacy #[id number], Partial fill upon patient request if the prescription is for a... Start Date: 03/26/24 Stop Date: 04/09/24 Status: Ordered buPROPion 100 mg/12 hours (SR) [...] opioid drug. Start Date: 06/20/22 Status: Ordered docusate sodium 100 mg oral tablet 1 tablet = 100 mg, By Mouth, 2 times a day, PRN for constipation, # 100 tablet, 0 Refills, Maintenance, 03/26/24 11:47:00 EDT, Tablet, [id number], Partial fill upon patient request if the prescription is for a schedule II opioid drug., 152.4,... Start Date: 03/26/24 Status: Ordered gabapentin 100 mg oral capsule 100 mg, 1, capsule, TAKE 1 CAPSULE BY MOUTH IN THE AM, 1 IN THE AFTERNOON, AND 2-3 BEDTIME Start Date: 03/04/24 Status: Ordered lamotrigine 200 mg oral tablet 1 tablet = 200 mg, By Mouth, Daily at bedtime, 0 Refills, Maintenance, 01/07/15 14:40:08 Start Date: 01/07/15 Status: Ordered Multivitamin 1 tablet, By Mouth, Daily, Maintenance, 06/20/22 18:33:00 EDT, Partial fill upon patient request ifthe prescription is for a schedule II opioid drug. Start Date: 06/20/22 Status: Ordered PriLOSEC OTC 20 mg oral delayed release tablet 1 tablet = 20 mg, By Mouth, 2 times a day, # 60 tablet, 2 Refills, Maintenance, 04/07/24 21:41:00 EDT, EC Tablet, [facility]/pharmacy #[id number], Partial fill upon patient request if the prescription is for a schedule II opioid drug., 152.4, cm, 03/26/24 13:24:00... Start Date: 04/07/24 Status: Ordered rOPINIRole 0.5 mg oral tablet [...] Informant Acute Lyme disease Confirmed 06/18/21 Active Acute post-operative pain Confirmed Active Cervical dysplasia Confirmed Active Cervical spondylosis with radiculopathy Confirmed Active section Confirmed Active DDD (degenerative disc disease), lumbar with deg arthritis changes 6 lumbar vert bodies Confirmed 03/27/13 Active Depression Confirmed Active Ex-cigarette smoker Confirmed 1994 Active Family history of breast cancer Confirmed 01/10/09 Active Helicobacter pylori (H. pylori) infection Confirmed Active Status post ankle fusion Confirmed Active Inguinal hernia-bilat repair Confirmed Active [...] Care Nurse Name: Kathryn Castro RN Position: [facility] SN RN Member Role: Primary Care Nurse Name: Yolanda Faust RN Position: S RN Member Role: Primary Care Nurse Name: Max Bacon MD Position: S Physician - Primary Care Member Role: PCP Address: Address: [address] [place] [address] Adult & Pediatric Medicine [address] Name: Yasmin Paige RN Position: S [...] Persons Name: CHINA MARTÍNEZ Address: home [address] [place] [address] Name: VIVEK PATEL Address: home [address] [place] [address]
--- OUTSIDE RECORDS SUMMARY | 2024-05-14 14:57 | XMS_ITS | Continuity of Care Document ---
Author Organization [facility] Address [address] [address]- Care Team Providers Care Television Cameraman Name Role Phone Max Bacon MD Primary Care Physician Encounter [facility] [place] Date(s): 03/23/22 - 04/22/22 [facility] [address] [address]- Attending Physician: AdmKailyn galarza Admitting Physician: AdmtrKailyn Referring Physician: Admtr, Ar8 [...] Given Tet/Diphth/Acel, Pertussis (oldterm) 5 01/10/09 Gi vinciio Influenza Virus Vaccine (oldterm) 6 01/10/09 Given Influenza Virus Vaccine (oldterm) 7 10/14/07 Given 1Admin Note: per paper chart 2Result Comment: [08/15/2018] [id number] 3Result Comment: [09/23/2017] [id number] 4Admin Note: FLUZONE [id number] 5Admin Note: sanofi pasteur Vaccine information statement [...]
--- OUTSIDE RECORDS SUMMARY | 2024-05-14 14:57 | XMS_ITS | Continuity of Care Document ---
Author Organization [facility] Address [address] [place] [address]- Care Team Providers Care Relief Salesperson Name Role Phone Arleen LIRA, Max Christine Primary Care Physician [phone] [facility] Date[facility]s): 04/05/22 - 05/05/22 [facility] [address] [place], [place] [address] Allergies, Adverse Reactions, Alerts Substance Reaction [...] Note: per paper chart 2Result Comment: [08/15/2018] [id number] 3Result Comment: [09/23/2017] [id number] 4Admin Note: FLUZONE [id number] 5Admin Note: sanofi pasteur Vaccine information statement [...]
--- OUTSIDE RECORDS SUMMARY | 2024-05-14 14:57 | XMS_ITS | Continuity of Care Document ---
Author Organization [facility] Address [address] [place] [address]- Care Team Providers Care Sap Bpc Developer Name Role Phone Max Bacon MD Primary Care Physician [facility] Date[facility]s): 11/20/22 - 12/20/22 [facility] [address] [place], [place] [address] Allergies, Adverse Reactions, Alerts Substance Reaction [...] Note: per paper chart 3Result Comment: [08/15/2018] [id number] 4Result Comment: [09/23/2017] [id number] 5Admin Note: FLUZONE [id number] 6Admin Note: sanofi pasteur Vaccine information statement [...] patch, 1 Refills, Maintenance, 11/20/22 12:42:00 EST, [facility]/pharmacy #[id number], 28, 1 patch Topically Daily, 149.86, [...] Care Nurse Name: Kathryn Castro RN Position: [facility] SN RN Member Role: Primary Care Nurse Name: Max Bacon MD Position: [facility] Primary Care Physician Member Role: PCP Address: Address: [address] [place] [address] Adult & Pediatric Medicine [address] Name: Yasmin Paige RN Position: [facility] RN Member Role: Primary Care Nurse Name: Iris Harrington RN Position: [facility] RN Member Role: Primary Care Nurse Name: Tish Blank RN Position: S RN Member Role: Primary Care Nurse Name: Eladio Bettencourt RN Position: S RN Member Role: Primary Care Nurse Care Team Related Persons Name: CHINA MARTÍNEZ Address: home [address] [place] [address] Name: VIVEK APTEL Address: [address] [place] [address]
--- OUTSIDE RECORDS SUMMARY | 2024-05-14 14:57 | XMS_ITS | Continuity of Care Document ---
Author Organization [facility] Address [address] [place] [address]- Care Team Providers Care Antique Finisher Name Role Phone Max Bacon MD Primary Care Physician [place] [facility] [place] 06/05/23 - 09/20/[address] [address]- Encounter Diagnosis Pain in unspecified shoulder(Final) - Discharge Disposition: A-D/C Home Attending Physician: Max Bacon MD Admitting Physician: Max Bacon MD Referring Physician: Javan Ho MD Allergies, [...] Note: per paper chart 3Result Comment: [08/15/2018] [id number] 4Result Comment: [09/23/2017] [id number] 5Admin Note: FLUZONE [id number] 6Admin Note: sanofi pasteur Vaccine information statement [...] Team Personnel Name: Nika Davalos RN Position: [facility] RN Member Role: Primary Care Nurse Name: Kathryn Castro RN Position: [facility] RN Member Role: Primary Care Nurse Name: Max Bacon MD Position: [facility] Physician - Primary Care Member Role: PCP Address: Address: [address] [place] [address] Adult [place] [address]- [place] Name: Yasmin Paige RN Position: S RN [...] Persons Name: CHINA MARTÍNEZ Address: home [address] [place] [address] Name: VIVEK PATEL Address: [address] [place] [address]
--- OUTSIDE RECORDS SUMMARY | 2024-05-14 14:57 | XMS_ITS | Continuity of Care Document ---
Author Organization [facility] Address [address] [place] [address]- Care Team Providers Care Inspector Weights And Measures Name Role Phone Max Bacon MD Primary Care Physician [phone] Encounter [facility] [place] Date(s): 05/08/23 - 09/05/23 [facility] [address] [place] [address]- Attending Physician: Max Bacon MD Allergies, Adverse [...] Note: per paper chart 3Result Comment: [08/15/2018] [id number] 4Result Comment: [09/23/2017] [id number] 5Admin Note: FLUZONE [id number] 6Admin Note: sanofi pasteur Vaccine information statement [...] Team Personnel Name: Nika Davalos RN Position: [facility] RN Member Role: Primary Care Nurse Name: Kathryn Castro RN Position: [facility] RN Member Role: Primary Care Nurse Name: Max Bacon MD Position: S Physician - Primary Care Member Role: PCP Address: Address: [address] [place] [address] Adult & [place] [address]- Name: Yasmin Paige RN Position: S RN [...] Persons Name: CHINA MARTÍNEZ Address: [address] [place] [address] Name: VIVEK PATEL Address: home [address] [place] [address]
--- OUTSIDE RECORDS SUMMARY | 2024-05-14 14:57 | XMS_ITS | Continuity of Care Document ---
Author Organization [facility] Address [address] [place] [address]- Care Team Providers Care Chicken Cutter Name Role Phone Arleen LIRA, Max Christine Primary Care Physician [facility]): 08/30/21 - 09/29/21 [facility] [address] [place] [address]- Allergies, Adverse Reactions, Alerts Substance Reaction Severity Status vancomycin rash Active Immunizations Given and Recorded Vaccine Date Status Refusal Reason zoster vaccine, inactivated 09/07/21 Recorded SARS-CoV-2 (COVID-19) mRNA BNT-162b2 vac 04/10/21 Recorded SARS-CoV-2 (COVID-19) mRNA BNT-162b2 vac 03/20/21 Recorded tetanus-diphtheria toxoids (Td) 01/01/19 Given tetanus-diphtheria [...] Note: per paper chart 2Result Comment: [08/15/2018] [id number] 3Result Comment: [09/23/2017] [id number] 4Admin Note: FLUZONE [id number] 5Admin Note: sanofi pasteur Vaccine information statement [...] 01/07/15 14:40:08 Start Date: 01/07/15 Status: Ordered Medrol Dosepak 4 mg oral tablet See Instructions, as directed on package labeling, # 1 pack/packet, 0 Refills, Maintenance, 08/31/21 16:42:00 EDT, [facility]/pharmacy #[id number], Partial fill upon patient request if the prescription is for a schedule II opioid drug., 153, cm, 06/12/21 12:03:00... Start Date: 08/31/21 Status: Ordered nicotine 14 mg/24 hr transdermal film, extended release 1 patch, Topically, Daily, # 28 patch, 1 Refills, Acute, 05/16/20 17:42:00 EDT, [facility] STORE 16701, 28, APPLY 1 PATCH TOPICALLY DAILY, 154.94, [...] 13:38:46, Compound Start Date: 02/07/17 Status: Ordered tiZANidine 2 mg oral tablet 2 mg, 1, tablet, By Mouth, Every 8 hours, PRN, # 21 tablet, Refills 0, Tot. Refills 0, Maintenance,as needed for muscle spasm, 08/31/21 16:42:00 EDT, Route to Pharmacy Electronically, [facility]/pharmacy #[id number], Partial fill upon patient request if the presc... Start Date: 08/31/21 Stop Date: 09/07/21 Status: Ordered Wellbutrin XL 300 mg/24 hours [...]
--- OUTSIDE RECORDS SUMMARY | 2024-05-14 14:58 | XMS_ITS | Continuity of Care Document ---
Author Organization [facility] Address [address] [place] [address]- Care Team Providers Care Hydro Plant Site Manager Name Role Phone Arleen LIRA, Max Christine Primary Care Physician [facility](s): 03/26/22 - 04/25/22 [facility] [address] [place], [place] [address] Allergies, Adverse Reactions, Alerts Substance Reaction [...] Note: per paper chart 2Result Comment: [08/15/2018] [id number] 3Result Comment: [09/23/2017] [id number] 4Admin Note: FLUZONE [id number] 5Admin Note: sanofi pasteur Vaccine information statement [...]
--- OUTSIDE RECORDS SUMMARY | 2024-05-14 14:58 | XMS_ITS | Continuity of Care Document ---
Author Organization [facility] Address [address] [place] [address]- Care Team Providers Care Oven Stripper Name Role Phone Max Bacon MD Primary Care Physician [facility] Date(s): 12/24/22 - 01/23/23 [facility] [address] [place] [address] Allergies, Adverse Reactions, Alerts Substance Reaction [...] Note: per paper chart 3Result Comment: [08/15/2018] [id number] 4Result Comment: [09/23/2017] [id number] 5Admin Note: FLUZONE [id number] 6Admin Note: sanofi pasteur Vaccine information statement [...] Refills, Soft Stop, 01/16/23 16:55:00 EST, Tablet, [facility]/pharmacy #[id number], Partial fill upon patient request if [...] patch, 1 Refills, Maintenance, 11/20/22 12:42:00 EST, [facility], 28, 1 patch Topically Daily, 149.86, [...] Care Nurse Name: Kathryn Castro RN Position: [facility] SN RN Member Role: Primary Care Nurse Name: Max Bacon MD Position: [facility] Primary Care Physician Member Role: PCP Address: Address: [address] [place] [address] Adult & Pediatric [address] Name: Yasmin Paige RN Position: S [...] Persons Name: CHINA MARTÍNEZ Address: home [address] [place] [address] Name: VIVEK PATEL Address: home [address] [place] [address]
--- OUTSIDE RECORDS SUMMARY | 2024-05-14 14:58 | XMS_ITS | Continuity of Care Document ---
Author Organization [facility] ter Address [address] [place] [address]- Care Team Providers Care Information Technology Internship Name Role Phone Max Bacon MD Primary Care Physician [phone] [facility] Date(s[facility] 03/15/22 - 05/10/[address] [address] Attending Physician: Javan Ho MD Admitting Physician: Javan Ho MD Allergies, Adverse Reactions, [...] Note: per paper chart 2Result Comment: [08/15/2018] [id number] 3Result Comment: [09/23/2017] [id number] 4Admin Note: FLUZONE [id number] 5Admin Note: sanofi pasteur Vaccine information statement [...]
--- OUTSIDE RECORDS SUMMARY | 2024-05-14 14:58 | XMS_ITS | Continuity of Care Document ---
Author Organization [facility] Address [address] [place] [address]- Care Team Providers Care Smeller Name Role Phone Max Bacon MD Primary Care Physician [facility]counter [facility] Date(s): 06/09/20 - 06/16/20 [facility] [address] [place] [address]- [facility] Attending Physician: Max Bacon MD Allergies, Adverse [...] Note: per paper chart 2Result Comment: [08/15/2018] [id number] 3Result Comment: [09/23/2017] [id number] 4Admin Note: FLUZONE [id number] 5Admin Note: sanofi pasteur Vaccine information statement (05/29/06) given to patient. 6Admin Note: pt declined, unavailable 7Admin Note: Declined Medications Abilify 2 mg oral tablet 2 mg, 1, tablet, By Mouth, Daily, Refills 0, Maintenance, 01/18/20 16:32:00 EST Start Date: 01/18/20 Status: Ordered amoxicillin 500 mg oral capsule 4 capsule = 2,000 mg, By Mouth, Once, given 1 hour prior to the procedure, # 4 capsule, 4 Refills, Soft Stop, 01/27/20 13:23:00 EDT, [facility]/pharmacy #0693, 154.94, cm, 01/18/20 15:49:00 EST, Height, 61.1, kg, 07/09/18 8:13:00 EDT, Dry Weight Start Date: 01/27/20 Status: Ordered Klonopin 1 mg oral tablet [...] Refills, Acute, 05/16/20 17:42:00 EDT, [facility], 28, APPLY 1 PATCH TOPICALLY DAILY, 154.94, [...]
--- OUTSIDE RECORDS SUMMARY | 2024-05-14 14:58 | XMS_ITS | Continuity of Care Document ---
Author Organization [facility] Address [address] [place] [address]- Care Team Providers Care Equity Research Analyst Name Role Phone Arleen LIRA, Max Christine Primary Care Physician [facility]counter [facility] Date(s): 04/02/22 - 05/02/22 [facility] [address] [place], [place] [address] Allergies, Adverse Reactions, Alerts Substance [...] Note: per paper chart 2Result Comment: [08/15/2018] [id number] 3Result Comment: [09/23/2017] [id number] 4Admin Note: FLUZONE [id number] 5Admin Note: sanofi pasteur Vaccine information statement [...]
--- OUTSIDE RECORDS SUMMARY | 2024-05-14 14:58 | XMS_ITS | Continuity of Care Document ---
Author Organization [facility] Address [address] [place] [address]- Care Team Providers Care Contact Lens Assistant Name Role Phone Arleen LIRA, Max Christine Primary Care Physician [facility] Date(s): 07/30/23 - 08/29/23 [facility] [address] [place] [address]- Allergies, Adverse Reactions, Alerts Substance Reaction Severity [...] Note: per paper chart 3Result Comment: [08/15/2018] [id number] 4Result Comment: [09/23/2017] [id number] 5Admin Note: FLUZONE [id number] 6Admin Note: sanofi pasteur Vaccine information statement [...] Team Personnel Name: Nika Davalos RN Position: [facility] RN Member Role: Primary Care Nurse Name: Kathryn Castro RN Position: [facility] RN Member Role: Primary Care Nurse Name: Max Bacon MD Position: [facility] Physician - Primary Care Member Role: PCP Address: Address: [address] [place] [address] Adult & Pediatric Medicine [address] Name: Yasmin Paige RN Position: [facility] RN Member Role: Primary Care Nurse Name: Raheem Sam RN Position: S RN Member Role: Primary Care Nurse Name: Iris Harrington RN Position: S RN Member Role: Primary Care Nurse Name: Ainsley Rivers RN Position: S RN Member Role: Primary Care Nurse Name: Tish Blank RN Position: S RN Member Role: Primary Care Nurse Name: Eladio Bettencourt RN Position: [facility] RN Member Role: Primary Care Nurse Care Team Related Persons Name: CHINA MARTÍNEZ Address: home [address] [place] [address] Name: VIVEK PATEL Address: [address] [place] [address]
--- OUTSIDE RECORDS SUMMARY | 2024-05-14 14:58 | XMS_ITS | Continuity of Care Document ---
Author Organization [facility] Address [address] [place] [address]- Care Team Providers Care Nurse Obgyn Name Role Phone Arleen LIRA, Max Christine Primary Care Physician [facility]counter [facility] Date(s): 04/02/22 - 05/02/22 [facility] [address] [place], [place] [address] Allergies, Adverse Reactions, Alerts Substance [...] Note: per paper chart 2Result Comment: [08/15/2018] [id number] 3Result Comment: [09/23/2017] [id number] 4Admin Note: FLUZONE [id number] 5Admin Note: sanofi pasteur Vaccine information statement [...]
--- OUTSIDE RECORDS SUMMARY | 2024-05-14 14:58 | XMS_ITS | Continuity of Care Document ---
Author Organization [facility] Address [address] [place] [address]- Care Team Providers Care Tool Crib Supervisor Name Role Phone Max Bacon MD Primary Care Physician [phone] [facility]counter [facility] Date(s): 06/12/21 - 06/19/21 [facility] [address] [place] [address]- Encounter Diagnosis Night sweats(Discharge Diagnosis) - 06/12/21 Poor appetite(Discharge Diagnosis) - 06/12/21 Attending Physician: Alice Maldonado MD Referring Physician: Max Bcaon MD Allergies, Adverse Reactions, Alerts Substance Reaction [...] Note: per paper chart 2Result Comment: [08/15/2018] [id number] 3Result Comment: [09/23/2017] [id number] 4Admin Note: FLUZONE [id number] 5Admin Note: sanofi pasteur Vaccine information statement (05/29/06) given to patient. 6Admin Note: pt declined, unavailable 7Admin Note: Declined Medications Abilify 2 mg oral tablet 2 mg, 1, tablet, By Mouth, Daily, Refills 0, Maintenance, 01/18/20 16:32:00 EST Start Date: 01/18/20 Status: Ordered doxycycline hyclate 100 mg oral tablet 1 tablet = 100 mg, By Mouth, 2 times a day, for 14 days, may take with food to minimize abdominal discomfort with fluids, # 28 tablet, 0 Refills, Acute 07/03/21 13:44:00 EDT, 06/19/21 13:44:00 EDT, Tablet, [facility]/pharmacy #0693, Partial fill upon patien... Start Date: 06/19/21 Stop Date: 07/03/21 Status: Ordered Klonopin 1 mg oral tablet [...] Refills, Acute, 05/16/20 17:42:00 EDT, [facility], 28, APPLY 1 PATCH TOPICALLY DAILY, 154.94, [...] Active Tubal ligation(Confirmed) Active Urinary incontinence(Confirmed) Active Diagnosis Diagnosis Type Effective Dates Health Status Cl inical Service Informant Night sweats Discharge Diagnosis 06/12/21 Poor appetite Discharge Diagnosis 06/12/21 Vital Signs Most recent to oldest [Reference Range]: 1 Height 153 cm (06/12/21 12:03 PM) Oxygen Saturation [94-100 %] 98 % (06/12/21 12:03 PM) Pulse Rate [55-90 bpm] 80 bpm (06/12/21 12:03 PM) Blood Pressure [90-138/55-84 mm Hg] 94/6 4mm Hg (06/12/21 12:03 PM) Temperature [96.8-100.4 DegF] 99.1 DegF (06/12/21 12:03 PM) Mode of Delivery (Oxygen) Room air (06/12/21 12:03 PM) Blood pressure sites Arm, left (06/12/21 12:03 PM) Temperature Route Temporal (06/12/21 12:03 PM) Social History Social History Type Response Smoking Status Former smoker; Laniee r of years: 44; Total pack years: 44; Started at age: 15; Stopped at age: 59; entered on: 03/21/18 Sex
--- OUTSIDE RECORDS SUMMARY | 2024-05-14 14:58 | XMS_ITS | Continuity of Care Document ---
Author Organization [facility] Address [address] [place] [address]- Care Team Providers Care Technical Services Analyst Name Role Phone Arleen LIRA, Max Christine Primary Care Physician [phone] [facility] Date(s): 03/14/22 - 05/09/22 [facility] [address] [place] [address]- Attending Physician: Dylan Sauceda MD Admitting Physician: Dylan Sauceda MD Referring Physician: Vic CAR DRYER, Cristina Stallworth Allergies, Adverse Reactions, Alerts Substance Reaction Severity [...] Note: per paper chart 2Result Comment: [08/15/2018] [id number] 3Result Comment: [09/23/2017] [id number] 4Admin Note: FLUZONE [id number] 5Admin Note: sanofi pasteur Vaccine information statement [...]
--- OUTSIDE RECORDS SUMMARY | 2024-05-14 14:58 | XMS_ITS | Continuity of Care Document ---
Author Organization [facility] Address [address] [place] [address]- Care Team Providers Care Spring Tester Name Role Phone Arleen LIRA, Max Christine Primary Care Physician [facility](s): 03/07/23 - 04/06/23 [facility] [address] [place], [place] [address] Allergies, Adverse Reactions, Alerts Substance Reaction [...] Note: per paper chart 3Result Comment: [08/15/2018] [id number] 4Result Comment: [09/23/2017] [id number] 5Admin Note: FLUZONE [id number] 6Admin Note: sanofi pasteur Vaccine information statement [...] Refills, Soft Stop, 01/16/23 16:55:00 EST, Tablet, [facility]/pharmacy #7111, Partial fill upon patient request [...] patch, 1 Refills, Maintenance, 11/20/22 12:42:00 EST, [facility]/pharmacy #7111, 28, 1 patch Topically Daily, 149.86, [...] Care Nurse Name: Kathryn Castro RN Position: [facility] SN RN Member Role: Primary Care Nurse Name: Max Bacon MD Position: [facility] Primary Care Physician Member Role: PCP Address: Address: [address] [place] [address] Adult & Pediatric Medicine [address] Name: Yasmin Paige RN Position: S [...] Persons Name: CHINA MARTÍNEZ Address: home [address] [place] [address] Name: VIVEK PATEL Address: home [address] [place] [address]
--- OUTSIDE RECORDS SUMMARY | 2024-05-14 14:58 | XMS_ITS | Continuity of Care Document ---
Author Organization [facility] Address [address] [place] [address]- Care Team Providers Care Three Dimensional Map Modeler Name Role Phone Max Bacon MD Primary Care Physician [facility] Date[facility]s): 12/21/22 - 01/20/[address] [address] Attending Physician: Not on Staff, Attending MD Admitting Physician: Not on Staff, Admitting MD Referring Physician: Not on Staff, Referring MD Allergies, Adverse Reactions, Alerts Substance Reaction [...] Note: per paper chart 3Result Comment: [08/15/2018] [id number] 4Result Comment: [09/23/2017] [id number] 5Admin Note: FLUZONE [id number] 6Admin Note: sanofi pasteur Vaccine information statement [...] Soft Stop, 01/16/23 16:55:00 EST, Tablet, [facility]/pharmacy #3426, Partial fill upon patient request if the [...] 1 Refills, Maintenance, 11/20/22 12:42:00 EST, [facility]/pharmacy #7111, 28, 1 patch Topically [...] Care Nurse Name: Kathryn Castro RN Position: [facility] RN Member Role: Primary Care Nurse Name: Max Bacon MD Position: [facility] Primary Care Physician Member Role: PCP Address: Address: [address] [place] [address] Adult & Pediatric Medicine [address] Name: Yasmin Paige RN Position: S [...] Persons Name: CHINA MARTÍNEZ Address: home [address] [place] [address] Name: VIVEK PATEL Address: home [address] [place] [address]
--- OUTSIDE RECORDS SUMMARY | 2024-05-14 14:58 | XMS_ITS | Continuity of Care Document ---
Author Organization [facility] Address [address] [place] [address]- Care Team Providers Care Train Driver Name Role Phone Arleen LIRA, Mxa Christine Primary Care Physician [facility]counter [facility] Date(s): 03/23/22 - 04/22/22 [facility] [address] [place], [place] [address] Allergies, Adverse Reactions, Alerts Substance Reaction Severity [...] Note: per paper chart 2Result Comment: [08/15/2018] [id number] 3Result Comment: [09/23/2017] [id number] 4Admin Note: FLUZONE [id number] 5Admin Note: sanofi pasteur Vaccine information statement [...]
--- OUTSIDE RECORDS SUMMARY | 2024-05-14 14:58 | XMS_ITS | Continuity of Care Document ---
Author Organization [facility] Address [address] [place] [address]- Care Team Providers Care Trim Die Maker Name Role Phone Arleen LIRA, Max Christine Primary Care Physician [facility] Date(s): 06/14/21 - 07/14/21 [facility] [address] [place], [place] [address] Allergies, Adverse Reactions, Alerts Substance Reaction Severity [...] Note: per paper chart 2Result Comment: [08/15/2018] [id number] 3Result Comment: [09/23/2017] [id number] 4Admin Note: FLUZONE [id number] 5Admin Note: sanofi pasteur Vaccine information statement [...] patch, 1 Refills, Acute, 05/16/20 17:42:00 EDT, [facility], 28, APPLY 1 PATCH TOPICALLY DAILY, 154.94, [...]
--- OUTSIDE RECORDS SUMMARY | 2024-05-14 14:58 | XMS_ITS | Continuity of Care Document ---
Author Organization [facility] Address [address] [place] [address]- Care Team Providers Care Goldbeater Name Role Phone Max Bacon MD Primary Care Physician [phone] Encounter [facility] Date(s): 04/08/23 - 05/20/[address] [address]- Encounter Diagnosis Pain in right ankle and joints of right foot(Final) - Discharge Disposition: A-D/C Home Attending Physician: Max Bacon MD Admitting Physician: Max Bacon MD Referring Physician: Cecilio LIRA, Ishmael Allergies, Adverse Reactions, Alerts Substance Reaction Severity [...] Note: per paper chart 3Result Comment: [08/15/2018] [id number] 4Result Comment: [09/23/2017] [id number] 5Admin Note: FLUZONE [id number] 6Admin Note: sanofi pasteur Vaccine information statement [...] Team Personnel Name: Nika Davalos RN Position: [facility] RN Member Role: Primary Care Nurse Name: Kathryn Castro RN Position: [facility] RN Member Role: Primary Care Nurse Name: Max Bacon MD Position: [facility] Physician - Primary Care Member Role: PCP Address: Address: [address] [place] [address] Adult & Pediatric Medicine [place], [place] [address] Name: Yasmin Paige RN Position: S RN [...] Persons Name: CHINA MARTÍNEZ Address: home [address] [place] [address] Name: VIVEK PATEL Address: [address] [address]
--- OUTSIDE RECORDS SUMMARY | 2024-05-14 14:58 | XMS_ITS | Continuity of Care Document ---
Author Organization [facility] ter Address [address] [place] [address]- Care Team Providers Care Chainstitch Sewing Machine Operator Name Role Phone Max Bacon MD Primary Care Physician [phone] [facility]counter [facility] Date(s): 04/21/20 - 06/30/[address] [address]- [facility] Attending Physician: Max Bacon MD Admitting Physician: Max Bacon MD Referring Physician: Max Bacon MD Allergies, Adverse Reactions, [...] Note: per paper chart 2Result Comment: [08/15/2018] [id number] 3Result Comment: [09/23/2017] [id number] 4Admin Note: FLUZONE [id number] 5Admin Note: sanofi pasteur Vaccine information statement [...] 4 Refills, Soft Stop, 01/27/20 13:23:00 EDT, [facility]/pharmacy #0693, 154.94, cm, 01/18/20 15:49:00 EST, Height, [...] patch, 1 Refills, Acute, 05/16/20 17:42:00 EDT, [facility] ST[facility] 70303, 28, APPLY 1 PATCH TOPICALLY DAILY, 154.94, [...]
--- OUTSIDE RECORDS SUMMARY | 2024-05-14 14:58 | XMS_ITS | Continuity of Care Document ---
Author Organization [facility] Address [address] [place] [address]- Care Team Providers Care Plastic Surgery Manager Name Role Phone Max Bacon MD Primary Care Physician [facility] Date(s): 04/09/20 - 08/07/20 [facility] [address] [place] [address]- [facility] Attending Physician: Max Bacon MD Allergies, Adverse [...] Note: per paper chart 2Result Comment: [08/15/2018] [id number] 3Result Comment: [09/23/2017] [id number] 4Admin Note: FLUZONE [id number] 5Admin Note: sanofi pasteur Vaccine information statement [...] 4 capsule, 4 Refills, Acute, [facility], 154.94, cm, 07/04/20 16:45:00 EDT, Height, 61.1, [...] Refills, Acute, 05/16/20 17:42:00 EDT, [facility], 28, APPLY 1 PATCH TOPICALLY DAILY, 154.94, [...]
--- OUTSIDE RECORDS SUMMARY | 2024-05-14 14:58 | XMS_ITS | Continuity of Care Document ---
Author Organization [facility] Address [address] [place] [address]- Care Team Providers Care Tire Classifier Name Role Phone Max Bacon MD Primary Care Physician [facility]counter [facility] Date(s): 03/19/22 - 03/26/22 [facility] [address] [place] [address]- Attending Physician: Max Bacon MD Allergies, Adverse [...] Note: per paper chart 2Result Comment: [08/15/2018] [id number] 3Result Comment: [09/23/2017] [id number] 4Admin Note: FLUZONE [id number] 5Admin Note: sanofi pasteur Vaccine information statement [...] opioid drug. Start Date: 03/19/22 Status: Ordered Requip 0.5 mg oral tablet [...] recent to oldest [Reference Range]: 1 2 Height 153 cm (03/19/22 2:23 PM) 153 cm (03/19/22 2:08 PM) Weight 61.2 kg (03/19/22 2:08 PM) Oxygen Saturation [94-100 %] 97 % (03/19/22 2:08 PM) Pulse Rate [55-90 bpm] 92 bpm *H* (03/19/22 2:08 PM) Body Mass Index [18.5-24.99] 26.14 *H* (03/19/22 2:08 PM) Blood Pressure [90-138/55-84 mm Hg] 118/ 84mm Hg (03/19/22 2:23 PM) 140/84mm Hg *H* (03/19/22 2:08 PM) Mode of Delivery (Oxygen) Room air (03/19/22 2:08 PM) Blood pressure sites Arm, left (03/19/22 2:08 PM) Social History Social History Type Response Smoking Status Former smoker; Numbe r of years: 44; Total pack years: 44; Started at age: 15; Stopped at age: 59; entered on: 03/21/18 Sex
--- OUTSIDE RECORDS SUMMARY | 2024-05-14 14:58 | XMS_ITS | Continuity of Care Document ---
Author Organization [facility] Address [address] [place] [address]- Care Team Providers Care Computer Hardware Designer Name Role Phone Arleen LIRA, Max Christine Primary Care Physician [phone] [facility]counter [facility] Date(s): 03/06/23 - 04/05/23 [facility] [address] [place], [place] [address] Allergies, Adverse [...] Note: per paper chart 3Result Comment: [08/15/2018] [id number] 4Result Comment: [09/23/2017] [id number] 5Admin Note: FLUZONE [id number] 6Admin Note: sanofi pasteur Vaccine information statement [...] Refills, Soft Stop, 01/16/23 16:55:00 EST, Tablet, [facility]/pharmacy #7111, Partial fill upon patient request if [...] patch, 1 Refills, Maintenance, 11/20/22 12:42:00 EST, [facility]/pharmacy #7111, 28, 1 patch Topically [...] Care Nurse Name: Kathryn Castro RN Position: [facility] SN RN Member Role: Primary Care Nurse Name: Max Bacon MD Position: [facility] Primary Care Physician Member Role: PCP Address: Address: [address] [place] [address] Adult & Pediatric Medicine [address] Name: Yasmin Paige RN Position: S [...] Persons Name: CHINA MARTÍNEZ Address: home [address] [place] [address] Name: VIVEK PATEL Address: home [address] [place] [address]
--- OUTSIDE RECORDS SUMMARY | 2024-05-14 14:58 | XMS_ITS | Continuity of Care Document ---
Author Organization [facility] Address [address] [place] [address]- Care Team Providers Care Kitchen Food Assembler Name Role Phone Arleen LIRA, Max Christine Primary Care Physician [phone] [facility] 08/31/21 - 09/07/21 [facility] [address] [place], [place] [address] Attending Physician: Minor Benitez MD Allergies, Adverse Reactions, Alerts Substance Reaction Severity Status vancomycin rash Active Immunizations Given and Recorded Vaccine Date Status Refusal Reason SARS-CoV-2 (COVID-19) mRNA BNT-162b2 vac 04/10/21 Recorded [...] Note: per paper chart 2Result Comment: [08/15/2018] [id number] 3Result Comment: [09/23/2017] [id number] 4Admin Note: FLUZONE [id number] 5Admin Note: sanofi pasteur Vaccine information statement [...] pack/packet, 0 Refills, Maintenance, 08/31/21 16:42:00 EDT, [facility]/pharmacy #[id number], Partial fill upon patient request if the prescription is for a schedule II opioid drug., 153, cm, 06/12/21 12:03:00... Start Date: 08/31/21 Status: Ordered nicotine 14 mg/24 hr transdermal film, extended release 1 patch, Topically, Daily, # 28 patch, 1 Refills, Acute, 05/16/20 17:42:00 EDT, [facility] STORE 53065, 28, APPLY 1 PATCH TOPICALLY DAILY, 154.94, [...] 08/31/21 16:42:00 EDT, Route to Pharmacy Electronically, [facility]/pharmacy #[id number], Partial fill upon patient request if the [...]
--- OUTSIDE RECORDS SUMMARY | 2024-05-14 14:58 | XMS_ITS | Continuity of Care Document ---
Author Organization [facility] Address [address] [place] [address]- Care Team Providers Care Stores Despatch Hand Name Role Phone Max Bacon MD Primary Care Physician [facility] Date[facility]s): 04/02/22 - 04/09/22 [facility] [address] [place] [address]- Attending Physician: Max Bacon MD Allergies, Adverse [...] Note: per paper chart 2Result Comment: [08/15/2018] [id number] 3Result Comment: [09/23/2017] [id number] 4Admin Note: FLUZONE [id number] 5Admin Note: sanofi pasteur Vaccine information statement [...] oldest [Reference Range]: 1 Height 153 cm (04/02/22 11:00 AM) Weight 61.6 kg (04/02/22 11:00 AM) Oxygen Saturation [94-100 %] 97 % (04/02/22 11:00 AM) Pulse Rate [55-90 bpm] 82 bpm (04/02/22 11:00 AM) Body Mass Index [18.5-24.99] 26.31 *H* (04/02/22 11:00 AM) Blood Pressure [90-138/55-84 mm Hg] 124/ 80mm Hg (04/02/22 11:00 AM) Mode of Delivery (Oxygen) Room air (04/02/22 11:00 AM) Blood pressure sites Arm, left (04/02/22 11:00 AM) Social History Social History Type Response Smoking Status Former smoker; Numbe r of years: 44; Total pack years: 44; Started at age: 15; Stopped at age: 59; entered on: 03/21/18 Sex
--- OUTSIDE RECORDS SUMMARY | 2024-05-14 14:58 | XMS_ITS | Continuity of Care Document ---
Author Organization [facility] Address [address] [place] [address]- Care Team Providers Care Professional Architect Name Role Phone Arleen LIRA, Max Christine Primary Care Physician [phone] [facility]counter [facility] Date(s): 09/07/21 - 09/14/21 [facility] [address] [place], [place] [address] Attending Physician: Bernadette Larsen MD Referring Physician: Max Bacon MD Allergies, [...] Note: per paper chart 2Result Comment: [08/15/2018] [id number] 3Result Comment: [09/23/2017] [id number] 4Admin Note: FLUZONE [id number] 5Admin Note: sanofi pasteur Vaccine information statement [...] pack/packet, 0 Refills, Maintenance, 08/31/21 16:42:00 EDT, [facility]/pharmacy #[id number], Partial fill upon patient request if the prescription is for a schedule II opioid drug., 153, cm, 06/12/21 12:03:00... Start Date: 08/31/21 Status: Ordered nicotine 14 mg/24 hr transdermal film, extended release 1 patch, Topically, Daily, # 28 patch, 1 Refills, Acute, 05/16/20 17:42:00 EDT, [facility], 28, APPLY 1 PATCH TOPICALLY DAILY, 154.94, [...] 08/31/21 16:42:00 EDT, Route to Pharmacy Electronically, [facility]/pharmacy #[id number], Partial fill upon patient request if the [...] oldest [Reference Range]: 1 Height 153 cm (09/07/21 11:02 AM) Weight 59.9 kg (09/07/21 11:02 AM) Oxygen Saturation [94-100 %] 96 % (09/07/21 11:02 AM) Pulse Rate [55-90 bpm] 97 bpm *H* (09/07/21 11:02 AM) Body Mass Index [18.5-24.99] 25.59 *H* (09/07/21 11:02 AM) Blood Pressure [90-138/55-84 mm Hg] 102/ 72mm Hg (09/07/21 11:02 AM) Temperature [96.8-100.4 DegF] 98.3 DegF (09/07/21 11:02 AM) Mode of Delivery (Oxygen) Room air (09/07/21 11:02 AM) Blood pressure sites Arm, left (09/07/21 11:02 AM) Temperature Route Oral (09/07/21 11:02 AM) Weight Obtained Via Standing scale (09/07/21 11:02 AM) Social History Social History Type Response Smoking Status Former smoker; Numbe r of years: 44; Total pack years: 44; Started at age: 15; Stopped at age: 59; entered on: 03/21/18 Sex
--- OUTSIDE RECORDS SUMMARY | 2024-05-14 14:58 | XMS_ITS | Continuity of Care Document ---
Author Organization [facility] Address [address] [place] [address]- Care Team Providers Care Scrap Preparer Name Role Phone Arleen LIRA, Max Christine Primary Care Physician Encounter 12/24/22 - 02/12/23 [facility] [address] [place] [address]- Discharge Disposition: [facility] Allergies, Adverse Reactions, Alerts Substance Reaction Severity [...] Note: per paper chart 3Result Comment: [08/15/2018] [id number] 4Result Comment: [09/23/2017] [id number] 5Admin Note: FLUZONE [id number] 6Admin Note: sanofi pasteur Vaccine information statement (05/29/06) given to patient. 7Admin Note: pt declined, unavailable 8Admin Note: Declined Medications amoxicillin 500 mg oral capsule 1 capsule = 500 mg, By Mouth, 3 times a day, for 6 week(s), # 126 capsule, 0 Refills, Acute 03/14/23 13:43:00 EDT, 01/31/23 13:43:00 EDT, [facility]/pharmacy #[id number], Partial fill upon patient request if the prescription is for a schedule II opioid drug., 149.... Start Date: 01/31/23 Stop Date: 03/14/23 Status: Ordered buPROPion 100 mg/12 hours (SR) [...] Refills, Soft Stop, 01/16/23 16:55:00 EST, Tablet, [facility]/pharmacy #[id number], Partial fill upon patient [...] patch, 1 Refills, Maintenance, 11/20/22 12:42:00 EST, [facility]/pharmacy #[id number], 28, 1 patch Topically Daily, [...] Care Nurse Name: Kathryn Castro RN Position: [facility] RN Member Role: Primary Care Nurse Name: Max Bacon MD Position: [facility] Primary Care Physician Member Role: PCP Address: Address: [address] [place] [address] Adult & Pediatric Medicine [address] Name: Yasmin Paige RN Position: S [...] Persons Name: MAURICIO CHINA Address: home [address] [place] [address] Name: VIVEK PATEL Address: [address] [place] [address]
--- OUTSIDE RECORDS SUMMARY | 2024-05-14 14:58 | XMS_ITS | Continuity of Care Document ---
Author Organization [facility] Address [address] [place] [address]- Care Team Providers Care Loan Inspector Name Role Phone Max Bacon MD Primary Care Physician [phone] [facility] 03/25/23 - 04/24/23 [facility] [address] [place] [address] Attending Physician: Admtr, Ar8 Allergies, Adverse [...] Note: per paper chart 3Result Comment: [08/15/2018] [id number] 4Result Comment: [09/23/2017] [id number] 5Admin Note: FLUZONE [id number] 6Admin Note: sanofi pasteur Vaccine information statement [...] Status: Ordered meloxicam 15 mg oral tablet 0 Refills, Maintenance, 04/09/23 8:48:00 EDT, Partial fill upon patient request if the prescriptionis for a schedule II opioid drug. Start [...] Team Personnel Name: Nika Davalos RN Position: [facility] RN Member Role: Primary Care Nurse Name: Kathryn Castro RN Position: [facility] RN Member Role: Primary Care Nurse Name: Max Bacon MD Position: [facility] Physician - Primary Care Member Role: PCP Address: Address: [address] [place] [address] Adult & Pediatric Medicine [address] Name: Yasmin Paige RN Position: S [...] Care Nurse Care Team Related Persons Name: CIERPICHINA PUGA Address: home [address] [place] [address] Name: VIVEK PATEL Address: [address] [place] [address]
--- OUTSIDE RECORDS SUMMARY | 2024-05-14 14:58 | XMS_ITS | Continuity of Care Document ---
Author Organization [facility] Address [address] [place] [address]- Care Team Providers Care Foreign Exchange Student Coordinator Name Role Phone Max Bacon MD Primary Care Physician [facility]s): 06/01/22 - 07/01/22 [facility] [address] [place] [address] Attending Physician: AdmKailyn galarza Admitting Physician: AdmtrKailyn [...] Note: per paper chart 2Result Comment: [08/15/2018] [id number] 3Result Comment: [09/23/2017] [id number] 4Admin Note: FLUZONE [id number] 5Admin Note: sanofi pasteur Vaccine information statement [...]
--- OUTSIDE RECORDS SUMMARY | 2024-05-14 14:58 | XMS_ITS | Continuity of Care Document ---
Author Organization [facility] Address [address] [place] [address]- Care Team Providers Care Extermination Inspector Name Role Phone Arleen LIRA, Max Christine Primary Care Physician [facility] Date[facility]s): 06/29/23 - 07/29/23 [facility] [address] [place], [place] [address] Attending Physician: Admtr, Ar8 Allergies, Adverse Reactions, [...] Note: per paper chart 3Result Comment: [08/15/2018] [id number] 4Result Comment: [09/23/2017] [id number] 5Admin Note: FLUZONE [id number] 6Admin Note: sanofi pasteur Vaccine information statement [...] at age: 59; entered on: 03/21/18 Sex EKG study * Event Display: EKG Authored Date: Laboratory * Event Display: Non BH Lab Results Authored Date: * Event Display: Non BH Lab Results Authored Date: Radiology * Event Display: CT Scan Shoulder, Non- BH Authored Date: * Event Display: CT Scan Shoulder, Non- BH Authored Date: * Event Display: CT Scan Shoulder, Non- BH Authored Date: * Event Display: MRI Shoulder, Non- BH Authored Date: MG Breast Views * Event Display: MM Mammogram Authored Date: Patient Care team information Care Team Personnel Name: Nika Davalos RN Position: S RN Member Role: Primary Care Nurse Name: Kathryn Castro RN Position: [facility] SN RN Member Role: Primary Care Nurse Name: Max Bacon MD Position: [facility] Physician - Primary Care Member Role: PCP Address: Address: [address] [place] [address] Adult & Pediatric [address] Name: Yasmin Paige RN Position: S [...] Persons Name: CHINA MARTÍNEZ Address: [address] [place] [address] Name: VIVEK PATEL Address: [address] [place] [address]
--- OUTSIDE RECORDS SUMMARY | 2024-05-14 14:58 | XMS_ITS | Continuity of Care Document ---
Author Organization [facility] Address [address] [address]- Care Team Providers Care Product Safety Lead Name Role Phone Max Bacon MD Primary Care Physician Encounter [facility] Date(s): 03/23/22 - 03/30/22 [facility] [address] [address]- Attending Physician: Max Bacon MD Admitting Physician: [...] Note: per paper chart 2Result Comment: [08/15/2018] [id number] 3Result Comment: [09/23/2017] [id number] 4Admin Note: FLUZONE [id number] 5Admin Note: sanofi pasteur Vaccine information statement [...]
--- OUTSIDE RECORDS SUMMARY | 2024-05-14 14:59 | XMS_ITS | Continuity of Care Document ---
Author Organization [facility] Address [address] [place] [address]- Care Team Providers Care Tapper Hand Name Role Phone Arleen LIRA, Max Christine Primary Care Physician [facility] Date[facility]s): 08/06/23 - 09/05/23 [facility] [address] [place] [address]- Attending Physician: Admtr, Ar8 Allergies, Adverse Reactions, [...] Note: per paper chart 3Result Comment: [08/15/2018] [id number] 4Result Comment: [09/23/2017] [id number] 5Admin Note: FLUZONE [id number] 6Admin Note: sanofi pasteur Vaccine information statement [...] Care Nurse Name: Kathryn Castro RN Position: [facility] SN RN Member Role: Primary Care Nurse Name: Max Bacon MD Position: [facility] Physician - Primary Care Member Role: PCP Address: Address: [address] [place] [address] Adult & Pediatric [place], [place] [address] Name: Yasmin Paige RN Position: S RN [...] Persons Name: CHINA MARTÍNEZ Address: home [address] [place] [address] Name: VIVEK PATEL Address: [address] [place] [address]
--- OUTSIDE RECORDS SUMMARY | 2024-05-14 14:59 | XMS_ITS | Continuity of Care Document ---
Author Organization [facility] Address [address] [place] [address]- Care Team Providers Care Spar Machine Operator Helper Name Role Phone Max Bacon MD Primary Care Physician Encounter [facility] Date(s): 05/29/22 - 07/04/[address] [address]- Attending Physician: Max Bacon MD Admitting Physician: [...] Note: per paper chart 2Result Comment: [08/15/2018] [id number] 3Result Comment: [09/23/2017] [id number] 4Admin Note: FLUZONE [id number] 5Admin Note: sanofi pasteur Vaccine information statement [...]
--- OUTSIDE RECORDS SUMMARY | 2024-05-14 14:59 | XMS_ITS | Continuity of Care Document ---
Author Organization [facility] Address [address] [place] [address]- Care Team Providers Care Circuit Board Inspector Name Role Phone Max Bacon MD Primary Care Physician [phone] [facility]counter [facility] Date(s): 04/09/22 - 05/09/22 [facility] [address] [place] [address] Attending Physician: AdmKailyn galarza Admitting Physician: AdmtrKailyn [...] Note: per paper chart 2Result Comment: [08/15/2018] [id number] 3Result Comment: [09/23/2017] [id number] 4Admin Note: FLUZONE [id number] 5Admin Note: sanofi pasteur Vaccine information statement [...]
--- OUTSIDE RECORDS SUMMARY | 2024-05-14 14:59 | XMS_ITS | Continuity of Care Document ---
Author Organization [facility] Address [address] [place] [address]- Care Team Providers Care Barrel Header Name Role Phone Max Bacon MD Primary Care Physician [phone] [facility] Date(s): 01/18/23 - 02/17/23 [facility] [address] [place] [address]- Attending Physician: Kailyn Montoya Admitting Physician: AdmKailyn galarza Referring Physician: Admtr, ArAmari Allergies, Adverse Reactions, Alerts Substance Reaction Severity [...] Note: per paper chart 3Result Comment: [08/15/2018] [id number] 4Result Comment: [09/23/2017] [id number] 5Admin Note: FLUZONE [id number] 6Admin Note: sanofi pasteur Vaccine information statement (05/29/06) given to patient. 7Admin Note: pt declined, unavailable 8Admin Note: Declined Medications amoxicillin 500 mg oral capsule 1 capsule = 500 mg, By Mouth, 3 times a day, for 6 week(s), # 126 capsule, 0 Refills, Acute 03/14/23 13:43:00 EDT, 01/31/23 13:43:00 EDT, [facility]/pharmacy #[id number], Partial fill upon patient [...] Refills, Soft Stop, 01/16/23 16:55:00 EST, Tablet, [id number], Partial fill upon patient [...] Team Personnel Name: Nika Davalos RN Position: [facility] RN Member Role: Primary Care Nurse Name: Kathryn Castro RN Position: [facility] RN Member Role: Primary Care Nurse Name: Max Bacon MD Position: [facility] Primary Care Physician Member Role: PCP Address: Address: [address] [place] [address] Adult & Pediatric Medicine [address] Name: Yasmin Paige RN Position: S [...] Persons Name: CHINA MARTÍNEZ Address: home [address] [place] [address] Name: VIVEK PATEL Address: [address] [place] [address]
--- OUTSIDE RECORDS SUMMARY | 2024-05-14 14:59 | XMS_ITS | Continuity of Care Document ---
Author Organization [facility] Address [address] [place] [address]- Care Team Providers Care System Planning Engineer Name Role Phone Arleen LIRA, Max Christine Primary Care Physician [facility] Date(s): 09/26/21 - 10/26/21 [facility] [address] [place], [place] [address] Attending Physician: Admtr, Ar8 Allergies, [...] Note: per paper chart 2Result Comment: [08/15/2018] [id number] 3Result Comment: [09/23/2017] [id number] 4Admin Note: FLUZONE [id number] 5Admin Note: sanofi pasteur Vaccine information statement [...] pack/packet, 0 Refills, Maintenance, 08/31/21 16:42:00 EDT, [facility]/pharmacy #[id number], Partial fill upon patient request if the prescription is for a schedule II opioid drug., 153, cm, 06/12/21 12:03:00... Start Date: 08/31/21 Status: Ordered nicotine 14 mg/24 hr transdermal film, extended release 1 patch, Topically, Daily, # 28 patch, 1 Refills, Acute, 05/16/20 17:42:00 EDT, [facility], 28, APPLY 1 PATCH TOPICALLY DAILY, 154.94, [...] 08/31/21 16:42:00 EDT, Route to Pharmacy Electronically, [facility]/pharmacy #[id number], Partial fill upon patient request if the [...]
--- OUTSIDE RECORDS SUMMARY | 2024-05-14 14:59 | XMS_ITS | Continuity of Care Document ---
Author Organization [facility] Address [address] [place] [address]- Care Team Providers Care Wheel Filler Name Role Phone Arleen LIRA, Max Christine Primary Care Physician [facility] Date(s): 05/13/23 - 06/12/23 [facility] [address] [place] [address]- Attending Physician: Kailyn Montoya Admitting Physician: Kailyn [...] Note: per paper chart 3Result Comment: [08/15/2018] [id number] 4Result Comment: [09/23/2017] [id number] 5Admin Note: FLUZONE [id number] 6Admin Note: sanofi pasteur Vaccine information statement [...] Team Personnel Name: Nika Davalos RN Position: [facility] RN Member Role: Primary Care Nurse Name: Kathryn Castro RN Position: [facility] RN Member Role: Primary Care Nurse Name: Max Bacon MD Position: S Physician - Primary Care Member Role: PCP Address: Address: [address] [place] [address] Adult & Pediatric Medicine [place], [place] [address] Name: Yasmin Paige RN Position: S RN [...] Persons Name: CHINA MARTÍNEZ Address: home [address] [place] [address] Name: VIVEK PATEL Address: home [address] [place] [address]
--- OUTSIDE RECORDS SUMMARY | 2024-05-14 14:59 | XMS_ITS | Continuity of Care Document ---
Author Organization [facility] Address [address] [place] [address]- Care Team Providers Care Hospital Mortician Name Role Phone Max Bacon MD Primary Care Physician Encounter [facility] Date(s): 01/18/20 - 01/25/20 [facility] [address] [place] [address]- [facility] Attending Physician: Max Bacon MD Allergies, [...] Note: per paper chart 2Result Comment: [08/15/2018] [id number] 3Result Comment: [09/23/2017] [id number] 4Admin Note: FLUZONE [id number] 5Admin Note: sanofi pasteur Vaccine information statement [...] # 4 capsule, 4 Refills, Soft Stop, 07/02/19 16:49:28 EDT Start Date: 07/02/19 Status: Ordered Klonopin 1 mg oral tablet 0.5 mg, 0.5, tablet, By Mouth, 2 times a day, PRN anxiety, 0 Refills, Maintenance Start Date: 01/10/09 Status: Ordered lamotrigine 200 mg oral tablet 1 tablet = 200 mg, By Mouth, Daily at bedtime, 0 Refills, Maintenance, 01/07/15 14:40:08 Start Date: 01/07/15 Status: Ordered Nicoderm C-Q 21 mg/24 hr transdermal film, extended release 1 patch, Topically, Daily, # 30 patch, 0 Refills, Maintenance, 11/30/19 17:21:00 EST, Patch, [id number], 154.94, cm, 07/02/19 16:12:00 EDT, Height, 61.1, kg, 07/09/18 8:13:00 EDT, Dry Weight Start Date: 11/30/19 Status: Ordered Nicoderm C-Q Clear 14 mg/24 hr transdermal film, extended release 1 patch, Topically, Daily, # 30 patch, 0 Refills, Maintenance, 01/21/20 11:45:00 EST, Patch, [id number], 154.94, cm, 01/18/20 15:49:00 EST, Height, 61.1, kg, 07/09/18 8:13:00 EDT, Dry Weight Start Date: 01/21/20 Status: Ordered QUEtiapine 25 mg oral tablet [...] recent to oldest [Reference Range]: 1 Height 154.94 cm (01/18/20 3:49 PM) Weight 62.3 kg (01/18/20 3:49 PM) Oxygen Saturation [94-100 %] 90 % *L* (01/18/20 3:49 PM) Pulse Rate [55-90 bpm] 83 bpm (01/18/20 3:49 PM) Body Mass Index [18.5-24.99] 25.95 *H* (01/18/20 3:49 PM) Blood Pressure [90-138/55-84 mm Hg] 120/ 82mm Hg (01/18/20 3:49 PM) Mode of Delivery (Oxygen) Room air (01/18/20 3:49 PM) Blood pressure sites Arm, left (01/18/20 3:49 PM) Weight Obtained Via Standing scale (01/18/20 3:49 PM) Social History Social History Type Response Smoking Status Former smoker; Shon r of years: 44; Total pack years: 44; Started at age: 15; Stopped at age: 59; entered on: 03/21/18 Sex
--- OUTSIDE RECORDS SUMMARY | 2024-05-14 14:59 | XMS_ITS | Continuity of Care Document ---
Author Organization [facility] Address [address] [place] [address]- Care Team Providers Care Payroll Bookkeeper Name Role Phone Arleen LIRA, Max Christine Primary Care Physician [phone] Encounter [facility] Date(s): 03/04/24 - 03/11/24 [facility] [address] [place] [id number] Attending Physician: Dylan Sauceda MD Referring Physician: Eric Lopez MD Allergies, Adverse Reactions, Alerts Substance Reaction [...] Note: per paper chart 3Result Comment: [08/15/2018] [id number] 4Result Comment: [09/23/2017] [id number] 5Admin Note: FLUZONE [id number] 6Admin Note: sanofi pasteur Vaccine information statement [...] opioid drug. Start Date: 06/20/22 Status: Ordered gabapentin 100 mg oral capsule [...] ligation Confirmed Active Urinary incontinence Confirmed Active Procedures Procedure Date Related Diagnosis Body Site Status Left TKR; B/L shoulder repla cement, hernia surgery; Myometctomy, Lumbar spine surgery Completed Vital Signs Most recent to oldest [Reference Range]: 1 Height 153 cm (03/04/24 11:11 AM) Weight 59.5 kg (03/04/24 11:11 AM) Oxygen Saturation [94-100 %] 97 % (03/04/24 11:11 AM) Pulse Rate [55-90 bpm] 66 bpm (03/04/24 11:11 AM) Body Mass Index [18.5-24.99 kg/m2] 25.42 kg/m2 *H* (03/04/24 11:11 AM) Blood Pressure [90-138/55-84 mm Hg] 136/ 76mm Hg (03/04/24 11:11 AM) Respiratory Rate [16-30 br/min] 16 br/mi n (03/04/24 11:11 AM) Mode of Delivery (Oxygen) Room air (03/04/24 11:11 AM) Blood pressure sites Arm, left (03/04/24 11:11 AM) Dry Weight 59.5 kg (03/04/24 11:11 AM) Weight Obtained Via Standing scale (03/04/24 11:11 AM) Dry Weight Obtained Via Standing scale (03/04/24 11:11 AM) Social History Social History Type Response Smoking Status Former smoker; Laniee r of years: 44; Total pack years: 44; Started at age: 15; Stopped at age: 59; entered on: 03/21/18 Sex EKG study * Event Display: ECG 12-Lead Authored Date: Please click on pdf link to open report * Event Display: ECG 12-Lead Authored Date: Ventricular Rate: 57 BPM Atrial Rate: 57 BPM P-R Interval: 152 ms QRS Duration: 104 ms Q-T Interval: 428 ms QTC Calculation(Bazett): 416 ms P Patterson: 11 degrees R Patterson: -14 degrees T Patterson: 7 degrees Sinus bradycardia Otherwise normal ECG When compared with ECG of 13-MAY-2023 12:07, No significant change was found Confirmed by JACK LACY MD ([id number]) on 03/04/2024 4:58:38 PM Elma: JACK LACY MD Patient Care team information Care Team Personnel Name: iNka Davalos RN Position: S RN Member Role: Primary Care Nurse Name: Kathryn Castro RN Position: [facility] SN RN Member Role: Primary Care Nurse Name: Max Bacon MD Position: S Physician - Primary Care Member Role: PCP Address: Address: [address] [place] [address] Adult & Pediatric Medicine [address] Name: Yasmin Paige RN Position: S [...] Persons Name: CHINA MARTÍNEZ Address: home [address] [place] [address] Name: VIVEK PATEL Address: home [address] [place] [id number]
--- OUTSIDE RECORDS SUMMARY | 2024-05-14 14:59 | XMS_ITS | Continuity of Care Document ---
Author Organization [facility] Address [address] [place] [address]- Care Team Providers Care Center Mgr Name Role Phone Max Bacon MD Primary Care Physician Encounter [facility] Date(s): 01/18/23 - 02/17/23 [facility] [place] [address]- Attending Physician: Beatrice Mccrary MD Referring Physician: Max Bacon MD Allergies, [...] Note: per paper chart 3Result Comment: [08/15/2018] [id number] 4Result Comment: [09/23/2017] [id number] 5Admin Note: FLUZONE [id number] 6Admin Note: sanofi pasteur Vaccine information statement (05/29/06) given to patient. 7Admin Note: pt declined, unavailable 8Admin Note: Declined Medications amoxicillin 500 mg oral capsule 1 capsule = 500 mg, By Mouth, 3 times a day, for 6 week(s), # 126 capsule, 0 Refills, Acute 03/14/23 13:43:00 EDT, 01/31/23 13:43:00 EDT, [facility]/pharmacy #[id number], Partial fill upon patient request if [...] Refills, Soft Stop, 01/16/23 16:55:00 EST, Tablet, [facility]/pharmacy #[id number], Partial fill upon patient request if [...] patch, 1 Refills, Maintenance, 11/20/22 12:42:00 EST, [facility]/pharmacy #[id number], 28, 1 patch Topically Daily, 149.86, [...] Team Personnel Name: Nika Davalos RN Position: [facility] RN Member Role: Primary Care Nurse Name: Kathryn Castro RN Position: [facility] RN Member Role: Primary Care Nurse Name: Max Bacon MD Position: [facility] Primary Care Physician Member Role: PCP Address: Address: [address] [place] [address] Adult & Pediatric Medicine [address] Name: Yasmin Paige RN Position: S [...] Persons Name: MAURICIO CHINA Address: home [address] [place] [address] Name: VIVEK PATEL Address: home [address] [place] [address]
--- OUTSIDE RECORDS SUMMARY | 2024-05-14 14:59 | XMS_ITS | Continuity of Care Document ---
Author Organization [facility] Address [address] [place] [address]- Care Team Providers Care Electrician Research Name Role Phone Max Bacon MD Primary Care Physician [facility] Date(s): 02/15/23 - 03/17/23 [facility] [address] [place] [id number] Allergies, Adverse Reactions, Alerts Substance [...] Note: per paper chart 3Result Comment: [08/15/2018] [id number] 4Result Comment: [09/23/2017] [id number] 5Admin Note: FLUZONE [id number] 6Admin Note: sanofi pasteur Vaccine information statement [...] Stop, 01/16/23 16:55:00 EST, Tablet, [facility]/pharmacy #[id number], Partial fill upon patient request [...] 11:09:34 EDT Start Date: 07/01/18 Status: Ordered vancomycin 125 mg oral capsule 1 capsule = 125 mg, By Mouth, Every 6 hours, for 10 days, Allergy to Vanc listed was mild rash withIV, OK to fill oral., # 40 capsule, 0 Refills, Acute 03/18/23 16:29:00 EDT, 03/08/23 16:29:00 EDT, Capsule, [facility]/pharmacy #[id number], Partial fill upon patie... Start Date: 03/08/23 Stop Date: 03/18/23 Status: Ordered Problem List Condition Confirmation Course [...] Care Nurse Name: Kathryn Castro RN Position: [facility] RN Member Role: Primary Care Nurse Name: Max Bacon MD Position: [facility] Primary Care Physician Member Role: PCP Address: Address: [address] [place] [address] Adult & Pediatric Medicine [address] Name: Yasmin Paige RN Position: S [...] Care Nurse Care Team Related Persons Name: LAURADE ANDAICK Address: home [address] [place] [address] Name: VIVEK PATEL Address: home [address] [place] [address]
--- OUTSIDE RECORDS SUMMARY | 2024-05-14 14:59 | XMS_ITS | Continuity of Care Document ---
Author Organization [facility] Address [address] [place] [address]- Care Team Providers Care Physical Damage Appraiser Name Role Phone Arleen LIRA, Max Christine Primary Care Physician [phone] [facility] Date(s): 09/12/23 - 10/12/[address] [address] Attending Physician: Kailyn Montoya Admitting Physician: AdmtrKailyn [...] Note: per paper chart 3Result Comment: [08/15/2018] [id number] 4Result Comment: [09/23/2017] [id number] 5Admin Note: FLUZONE [id number] 6Admin Note: sanofi pasteur Vaccine information statement [...] Care Nurse Name: Kathryn Castro RN Position: S RN Member Role: Primary Care Nurse Name: Max Bacon MD Position: S Physician - Primary Care Member Role: PCP Address: Address: [address] [place] [address] Adult & Pediatric Medicine [address] Name: Yasmin Paige RN Position: S RN Member Role: Primary Care Nurse Name: Flaco RN, Raheem Devries Position: S RN Member Role: Primary Care Nurse Name: Iirs Harrington RN Position: S RN Member Role: Primary Care Nurse Name: Ainsley Rivers RN Position: S RN Member Role: Primary Care Nurse Name: Tish Blank RN Position: S RN Member Role: Primary Care Nurse Name: Eladio Bettencourt RN Position: S RN Member Role: Primary Care Nurse Care Team Related Persons Name: CHINA MARTÍNEZ Address: home [address] [place] [address] Name: VIVEK PATEL Address: home [address] [place] [id number]
--- OUTSIDE RECORDS SUMMARY | 2024-05-14 14:59 | XMS_ITS | Continuity of Care Document ---
Author Organization [facility] Address [address] [place] [address]- Care Team Providers Care Riveting Machine Operator Automatic Name Role Phone Arleen LIRA, Max Christine Primary Care Physician [facility] Date(s): 03/08/23 - 04/07/23 [facility] [address] [place], [place] [address] Allergies, Adverse Reactions, [...] Note: per paper chart 3Result Comment: [08/15/2018] [id number] 4Result Comment: [09/23/2017] [id number] 5Admin Note: FLUZONE [id number] 6Admin Note: sanofi pasteur Vaccine information statement [...] Refills, Soft Stop, 01/16/23 16:55:00 EST, Tablet, [facility]/pharmacy #[id number], Partial fill upon patient [...] patch, 1 Refills, Maintenance, 11/20/22 12:42:00 EST, [facility]/pharmacy #[id number], 28, 1 patch Topically [...] Care Nurse Name: Kathryn Castro RN Position: [facility] SN RN Member Role: Primary Care Nurse Name: Max Bacon MD Position: [facility] Primary Care Physician Member Role: PCP Address: Address: [address] [place] [address] Adult & Pediatric Medicine [address] Name: Yasmin Paige RN Position: S [...] Persons Name: CHINA MARTÍNEZ Address: home [address] [place] [address] Name: VIVEK PATEL Address: home [address] [place] [id number]
--- OUTSIDE RECORDS SUMMARY | 2024-05-14 15:00 | XMS_ITS | Continuity of Care Document ---
Author Organization [facility] Address [address] [place] [address]- Care Team Providers Care Hull Builder Name Role Phone Arleen LIRA, Max Christine Primary Care Physician [facility] Date(s): 02/14/24 - 03/15/24 [facility] [address] [place], [place] [address] Allergies, Adverse Reactions, Alerts Substance Reaction [...] Note: per paper chart 3Result Comment: [08/15/2018] [id number] 4Result Comment: [09/23/2017] [id number] 5Admin Note: FLUZONE [id number] 6Admin Note: sanofi pasteur Vaccine information statement [...] Team Personnel Name: Nika Davalos RN Position: [facility] RN Member Role: Primary Care Nurse Name: Kathryn Castro RN Position: [facility] RN Member Role: Primary Care Nurse Name: Max Bacon MD Position: [facility] Physician - Primary Care Member Role: PCP Address: Address: [address] [place] [address] Adult & Pediatric Medicine [address] Name: Yasmin Paige RN Position: S [...] Persons Name: LAURACHINA PUGA Address: home [address] [place] [address] Name: VIVEK PATEL Address: home [address] [place] [address]
--- OUTSIDE RECORDS SUMMARY | 2024-05-14 15:00 | XMS_ITS | Continuity of Care Document ---
Author Organization [facility] Address [address] [place] [address]- Care Team Providers Care Ticket Sales Supervisor Name Role Phone Arleen LIRA, Max Christine Primary Care Physician [facility] Date(s): 06/09/20 - 07/09/20 [facility] [address] [place] [address]- [facility] Attending Physician: Admtr, Ar8 Allergies, Adverse Reactions, [...] Note: per paper chart 2Result Comment: [08/15/2018] [id number] 3Result Comment: [09/23/2017] [id number] 4Admin Note: FLUZONE [id number] 5Admin Note: sanofi pasteur Vaccine information statement [...] PROCEDURE, # 4 capsule, 4 Refills, Acute, [facility] [id number], 154.94, cm, 07/04/20 16:45:00 EDT, Height, 61.1, kg, 07/09/18 8:13:00 EDT, Dry Weight Start Date: 07/05/20 Status: Ordered ibuprofen 800 mg oral tablet 800 mg, 1, tablet, By Mouth, Every 8 hours, for 10 days, # 30 tablet, Refills 0, Tot. Refills 0, Acute 07/14/20 17:53:00 EDT, 07/04/20 17:53:00 EDT, Route to Pharmacy Electronically, [facility]/pharmacy #[id number], 154.94, cm, 07/04/20 16:45:00 EDT, Height, 61.1,... Start Date: 07/04/20 Stop Date: 07/14/20 Status: Ordered Klonopin 1 mg oral tablet [...] 1 Refills, Acute, 05/16/20 17:42:00 EDT, [facility] [id number], 28, APPLY 1 PATCH TOPICALLY DAILY, 154.94, [...]
--- OUTSIDE RECORDS SUMMARY | 2024-05-14 15:00 | XMS_ITS | Continuity of Care Document ---
Author Organization [facility] Address [address] [place] [address]- Care Team Providers Care City Dispatch Supervisor Name Role Phone Max Bacon MD Primary Care Physician En[place] [facility] Date(s): 07/04/20 - 07/11/20 [facility] [place] [address]- [facility] Attending Physician: Yovanny Mackey MD Referring Physician: Max Bacon MD Allergies, [...] Note: per paper chart 2Result Comment: [08/15/2018] [id number] 3Result Comment: [09/23/2017] [id number] 4Admin Note: FLUZONE [id number] 5Admin Note: sanofi pasteur Vaccine information statement [...] PROCEDURE, # 4 capsule, 4 Refills, Acute, [facility] STORE 68075, 154.94, cm, 07/04/20 16:45:00 EDT, Height, 61.1, kg, 07/09/18 8:13:00 EDT, Dry Weight Start Date: 07/05/20 Status: Ordered ibuprofen 800 mg oral tablet 800 mg, 1, tablet, By Mouth, Every 8 hours, for 10 days, # 30 tablet, Refills 0, Tot. Refills 0, Acute 07/14/20 17:53:00 EDT, 07/04/20 17:53:00 EDT, Route to Pharmacy Electronically, [facility]/pharmacy #[id number], 154.94, cm, 07/04/20 16:45:00 EDT, Height, [...] patch, 1 Refills, Acute, 05/16/20 17:42:00 EDT, [facility] STORE 96802, 28, APPLY 1 PATCH TOPICALLY DAILY, 154.94, [...] oldest [Reference Range]: 1 Height 154.94 cm (07/04/20 4:45 PM) Oxygen Saturation [94-100 %] 97 % (07/04/20 4:45 PM) Pulse Rate [55-90 bpm] 74 bpm (07/04/20 4:45 PM) Blood Pressure [90-138/55-84 mm Hg] 112/ 76mm Hg (07/04/20 4:45 PM) Respiratory Rate [16-30 br/min] 22 br/mi n (07/04/20 4:45 PM) Temperature [96.8-100.4 DegF] 98.2 DegF (07/04/20 4:45 PM) Mode of Delivery (Oxygen) Room air (07/04/20 4:45 PM) Blood pressure sites Arm, left (07/04/20 4:45 PM) Temperature Route Temporal (07/04/20 4:45 PM) Social History Social History Type Response Smoking Status Former smoker; Numbe r of years: 44; Total pack years: 44; Started at age: 15; Stopped at age: 59; entered on: 03/21/18 Sex
--- OUTSIDE RECORDS SUMMARY | 2024-05-14 15:00 | XMS_ITS | Continuity of Care Document ---
Author Organization [facility] ter Address [address] [place] [id number]- Care Team Providers Care Contract Driver Name Role Phone Max Bacon MD Primary Care Physician [phone] Encounter [facility] Date(s): 05/22/23 - 05/23/[address] [address]- Discharge Disposition: A-D/C Home Attending Physician: Javan [...] (oldterm) 01/10/09 Given Tet/Diphth/Acel, Pertussis (oldterm) 6 2/23/09 Gi vinicio Influenza Virus Vaccine (oldterm) 7 01/10/09 Given Influenza Virus Vaccine (oldterm) 8 10/14/07 Given 1Result Comment: pt. tolerated inj. without complications....CO 2Admin Note: per paper chart 3Result Comment: [08/15/2018] [id number] 4Result Comment: [09/23/2017] [id number] 5Admin Note: [id number] 6Admin Note: sanofi pasteur Vaccine information statement [...] hours, PRN for Pain , Severe, Routine, 05/22/23 14:20:00EDT Start Date: 05/22/23 Stop Date: 05/23/23 Status: Discontinued lamotrigine 200 mg oral tablet [...] Every 6 hours, PRN for Pain , Moderate, Routine, 05/22/23 14:19:00 EDT Start Date: 05/22/23 Stop Date: 05/23/23 Status: Discontinued rOPINIRole 0.5 mg oral tablet [...] ligation Confirmed Active Urinary incontinence Confirmed Active Vital Signs Most recent to oldest [Reference Range]: 1 2 3 Height 153 cm (05/23/23 6:45 AM) 153 cm (05/22/23 4:54 PM) 153 cm (05/22/23 10:08 AM) Weight 57 kg (05/22/23 4:54 PM) 57 kg (05/22/23 10:08 AM) 57 kg (05/17/23 3:28 PM) Oxygen Saturation [94-100 %] 93 % *L* (05/23/23 6:45 AM) 95 % (05/23/23 3:00 AM) 94 % (05/22/23 11:00 PM) Pulse Rate [55-90 bpm] 90 bpm (05/23/23 6:45 AM) 79 bpm (05/23/23 3:00 AM) 85 bpm (05/22/23 11:00 PM) Body Mass Index [18.5-24.99 kg/m2] 24.35 kg/m2 (05/22/23 4:54 PM) 24.35 kg/m2 (05/22/23 10:08 AM) 24.35 kg/m2 (05/17/23 3:28 PM) Blood Pressure [90-138/55-84 mm Hg] 110/76mm Hg (05/23/23 6:45 AM) 104/61mm Hg (05/23/23 3:00 AM) 109/64mm Hg (05/22/23 11:00 PM) Respiratory Rate [16-30 br/min] 18 br/min (05/23/23 10:42 AM) 18 br/min (05/23/23 7:58 AM) 18 br/min (05/23/23 6:45 AM) Temperature [96.8-100.4 DegF] 100.3 DegF (05/23/23 6:45 AM) 99.3 DegF (05/23/23 3:00 AM) 100.5 DegF *H* (05/22/23 11:00 PM) Liters per Minute 3 L/min (05/22/23 4:00 PM) 3 L/min (05/22/23 2:30 PM) 6 L/min (05/22/23 2:00 PM) Mode of Delivery (Oxygen) Room air (05/23/23 6:45 AM) Room air (05/23/23 3:00 AM) Room air (05/22/23 11:00 PM) Blood pressure sites Arm, right (05/23/23 6:45 AM) Arm, right (05/23/23 3:00 AM) Arm, right (05/22/23 11:00 PM) Temperature Route Oral (05/23/23 6:45 AM) Oral (05/23/23 3:00 AM) Oral (05/22/23 11:00 PM) Dry Weight 57 kg (05/22/23 4:54 PM) 55.6 kg (05/22/23 10:08 AM) 57 kg (05/17/23 3:28 PM) Weight Obtained Via Patient/family state d (05/17/23 3:28 PM) Dry Weight Obtained Via Standing scale (05/22/23 10:08 AM) Patient/family stated (05/17/23 3:28 PM) Social History Social History Type Response Smoking Status Former smoker; Numbe r of years: 44; Total pack years: 44; Started at age: 15; Stopped at age: 59; entered on: 03/21/18 Sex Hospital Progress note * Divine Teresa RN: SIGN, VERIFY, PERFORM, MODIFY Event Display: Progress Note Hospital Authored Date: [id number] Patient: MAGALI MARTÍNEZ Age: 67 years Sex: Female : 1955 Associated Diagnoses: None Author: Divine Teresa RN Findings Problem Related to Alteration in Musculoskeletal : Alteration in Musculoskeletal Func/new 05/23/2023 9:00 EDT Alteration in Musculoskeletal Related to Orthopedic Procedure, Other: L reverse total shoulder 05/22 Goals & Outcomes, Musculoskeletal Affected extremity will maintain color/motion/sensation, Pt able to perform ADL's to best of ability, Pt demonstrates precautions/exercise/ transfers per protocol, Pt will ambulate safely with assistive device, Pt will be free from complications of immobility, Pt will demonstrate ability to participate in ADL's, Pt will report acceptable level of comfort/painrelief, Resolved problem, Goals/Outcomes met Interventions, Musculoskeletal Resolved problem, Interventions no longer in effect BH Goals/Interventions, Musculoskeletal Yes Musculoskeletal, Problem Start 05/24/2023 0:22 Reviewed Plan with, Musculoskeletal Patient Patient Progression, Musculoskeletal Resolved problem Musculoskeletal, Problem Resolved 05/23/2023 9:29 . Nursing Data Vital Signs : VITAL SIGNS SECTION 05/23/2023 7:58 EDT Early Warning Score 2.00 05/23/2023 7:58 EDT Respiratory Rate 18 br/min 05/23/2023 6:45 EDT Early Warning Score 2.00 05/23/2023 6:45 EDT Temperature 100.3 DegF Temperature Route Oral Pulse Rate 90 bpm Respiratory Rate 18 br/min Systolic Blood Pressure 110 mm Hg Diastolic Blood Pressure 76 mm Hg Blood pressure sites Arm, right Mean Arterial Pressure 87 mm Hg Pulse Pressure 34 mm Hg Oxygen Saturation 93 % L Mode of Delivery (Oxygen) Room air . Narrative/Incidental Patient A & O x 4. VSS. POD # 1 For Left T Reverse shoulder. Patient in sling and swath. +Finger movement, warm to touch, Cap refill WNL's. Aquacel CDI. C/o pain /10. PRN pain meds given with + effect. Ice and elevation to L UE. Review of NWB status, patient aware. Up with supervision with no AD with obs steady gait pattern to BR. Denies CP, SOB, N/V, N/T. LS CTA. Abd SRNT, +BS. LBM 05/22/23. Voiding without issues. Safety checks completed. Bed in lowest locked position with call bernard within reach. Alarm on for safety. Hourly rounding.. Evaluation P:Alteration in Musculoskeletal I: Interventions per Plan E: Patient A & O x 4. VSS. POD # 1 For Left T Reverse shoulder. Patient in sling and swath. +Finger movement, warm to touch, Cap refill WNL's. Aquacel CDI. C/o pain 10. PRN pain meds given with+ effect. Ice and elevation to L UE. Review of NWB status, patient aware. Patient ambulating to BR with steady gait pattern and no AD. Consult with Ortho Marcus MOSES Sofia. Patient ready for discharge. Discharge orders received. Discharge paperwork prepared and verbal and written instructions given with verbal and written acknowledgement of understanding of instructions. Paperwork signed and placed in scanning bin. IV removed with tip intact. Patient left with all belongings via w/c with hospital personnel. . * Flaco REDDY, Raheem Devries: PERFORM, SIGN, VERIFY, MODIFY, SIGN Event Display: Progress Note Hospital Authored Date: [id number] Patient: MAGALI MARTÍNEZ Age: 67 years Sex: Female : 1955 Associated Diagnoses: None Author: Flaco REDDY, Raheem Devries Findings Problem Related to Alteration in Musculoskeletal : Alteration in Musculoskeletal Func/new 05/23/2023 0:00 EDT Alteration in Musculoskeletal Related to Orthopedic Procedure, Other: L reverse total shoulder 05/22 Goals & Outcomes, Musculoskeletal Affected extremity will maintain color/motion/sensation, Pt able to perform ADL's to best of ability, Pt demonstrates precautions/exercise/ transfers per protocol, Pt will ambulate safely with assistive device, Pt will be free from complications of immobility, Pt will demonstrate ability to participate in ADL's, Pt will report acceptable level of comfort/painrelief, Resolved problem, Goals/Outcomes met Interventions, Musculoskeletal Monitor patients ambulation status, monitor Color/Motion/Sensation, Assist with repositioning, Encourage deep breathing & coughing exercises, Notify MD immediately if tissue perfusion deteriorates, Obtain assistive devices as needed, Teach & Encourage use of Incentive spirometer, Teach Pt/caregiver on ADL's & adaptive equipment, Teach Pt/caregiver on exercises, Teach pt/caregiver on use of pain scale, Teach Pt/caregiver complications of immobility, Teach Pt/caregiver techniques to increase mobility, Teach Pt/caregiver on safety precautions, Incision care as ordered BH Goals/Interventions, Musculoskeletal Yes Musculoskeletal, Problem Start 05/24/2023 0:22 Reviewed Plan with, Musculoskeletal Patient Patient Progression, Musculoskeletal Pt progressing according to plan . Nursing Data Apnea/Bradycardia : Apnea/Bradycardia 05/22/2023 23:00 EDT Pulse Rate 85 bpm Oxygen Saturation 94 % . Cardiac Data. : Cardiac Data. 05/23/2023 0:18 EDT Cardiovascular WNL . Gastrointestinal Data. : Gastrointestinal Data. 05/23/2023 0:18 EDT Last Bowel Movement 05/22/2023 GI WNL . Genitourinary Data. : Genitourinary Data. 05/23/2023 0:18 EDT WNL . HEENT Data. : HEENT Assessment 05/23/2023 0:18 EDT HEENT, Adult WNL . Integumentary Data. : Integumentary Data. 05/23/2023 0:18 EDT Activity Walks frequently Mobility Slightly limited Integumentary WNL . IV Lines. : IV Lines. 05/23/2023 0:20 EDT Right Forearm 20 gauge Peripheral IV Activity: Assess Peripheral IV Assess Compare Touch: A/C/T Done, no complications Peripheral IV Site Assessment: Clean, dry and intact . Musculoskeletal Data. : Musculoskeletal Data. 05/23/2023 0:18 EDT Musculoskeletal Symptoms Other: L reverse total shoulder 05/22 Special Orthopedic Devices Sling Musculoskeletal WNL except . Neurological Data. : Neurological Data. 05/23/2023 0:21 EDT Pain Intensity 5 Pain Intensity 3 05/23/2023 0:20 EDT Pain Intensity 5 05/23/2023 0:18 EDT 1 - 10 Pain Scale Score 8 Neuro WNL 05/23/2023 0:09 EDT Pain Intensity 8 05/22/2023 21:40 EDT Pain Intensity 8 05/22/2023 21:22 EDT Pain Intensity 9 . Patient Care Data. : Patient Care Data. 05/23/2023 0:19 EDT Turn and Reposition Able to change own position, With partial assist, While in bed, While in chair Sequential Compression Device Sequentials on bilaterally TEDS Not indicated/Not ordered ID band on Yes Allergy band in place/verified Yes Blood Pressure/Venipuncture Do not use left arm Call Bernard in Reach-Ensure Ability to Use Yes Patient Instructed on Use of Call Bernard Yes Standard Safety Bed in low position, Non-slip footwear, Upper/Half-length side- rails up, Wheels locked 05/23/2023 0:18 EDT Pain system assessment Detailed pain assessment 05/22/2023 22:00 EDT Urine Count 1 05/22/2023 19:00 EDT Urine Count 1 . Respiratory/Pulmonary Data. : Respiratory/Pulmonary Data. 05/23/2023 0:19 EDT Respiratory Treatment(s) Cough and deep breathe, Incentive spirometry 05/23/2023 0:18 EDT Respiratory WNL 05/22/2023 23:00 EDT Mode of Delivery (Oxygen) Room air 05/22/2023 19:00 EDT Mode of Delivery (Oxygen) Room air . Vital Signs : VITAL SIGNS SECTION 05/22/2023 23:00 EDT Temperature 100.5 DegF H Temperature Route Oral Pulse Rate 85 bpm Respiratory Rate 18 br/min Systolic Blood Pressure 109 mm Hg Diastolic Blood Pressure 64 mm Hg Blood pressure sites Arm, right Oxygen Saturation 94 % Mode of Delivery (Oxygen) Room air . Clinical Measurements : CLINICAL MEASUREMENTS 05/22/2023 16:54 EDT Height 153 cm Weight 57 kg Dry Weight 57 kg Body Mass Index 24.35 kg/m2 Body surface area 1.56 BSA [place] 1.54 Weight lb/oz 125 lb 11 oz . Pain Data : PAIN SECTION 05/23/2023 0:21 EDT Pain Intensity 5 Pain Intensity 3 05/23/2023 0:20 EDT Pain Intensity 5 05/23/2023 0:18 EDT 1 - 10 Pain Scale Score 8 05/23/2023 0:09 EDT Pain Intensity 8 05/22/2023 21:40 EDT Pain Intensity 8 05/22/2023 21:22 EDT Pain Intensity 9 . Evaluation L reverse total shoulder 05/22. A&Ox4,calm and cooperative with plan of care. LS clear. Denies SOB/CP/dizziness. IS in use. Abd soft,non-tender. +bs, denies flatus. Denies N/V/D. Tolerating regulardiet well. Last BM 05/22. OOB standby assist to the bathroom. Voiding cyu. +radial pulse, +wiggle, +warmth. CMS intact. Pain 8/10. Oxycodone and dilaudid IVP once given with positive effect. Temp 100.5, tylenol given with positive effect. KAROL wrap C/D/I. Sling and sloathe in place. Cboots on BLE. Bedin lowest locked position. Call bernard/belongings within reach. Encouraged to use call bernard for needs. Plan is for home tomorrow. . * Bela Majano RN: PERFORM, SIGN, VERIFY, MODIFY, SIGN Event Display: Progress Note Hospital Authored Date: Patient: MAGALI MARTÍNEZ Age: 67 years Sex: Female : 1955 Associated Diagnoses: None Author: Bela Majano RN Findings Narrative/Incidental P- alteration in musculoskeletal I- see about interventions E- Pt A and O x 3. + pulses and wiggle, not full sensation yet. pills given with apple sauce, pt not in pain on arrival. sling and sloath in place. L shoulder aquacel CDI. CL. 2L oxygen. ambulated toBR on arrival, voided 200. pt has sleep apnea but does not use CPAP. safety precautions in place. IS cough and deep breathe encouraged 10x per hour. pt sleeping in bed, arousable to voice. call lightand belongings within reach, pt needs met. +BS. tolerating diet. no nausea vomiting. continuing to mnitor pt status. . Note * Divine Teresa RN: PERFORM Event Display: Discharge/Transfer Note Hospital Authored Date: [id number] Nursing Discharge Note Entered On: 05/23/2023 9:42 EDT Performed On: 05/23/2023 9:42 EDT by Divine Teresa RN Nursing Discharge Note 2 Discharge Time : 05/23/2023 10:50 EDT Divine Teresa RN - 05/23/2023 10:53 EDT Discharge Level of Care at Discharge : Home/Senior Care/Foster Care Patient Left Unit Via : Wheelchair Patient Accompanied Off Unit with : Responsible adult DC Instructions Provided & Signed by Pt : Yes Patient Understands D/C Instructions : Yes Did Pt have Specialty Bed or Wound Vac : No Divine Teresa RN - 05/23/2023 9:42 EDT * Luci Beasley: PERFORM, SIGN, VERIFY Event Display: Discharge/Transfer Note Hospital Authored Date: [id number] Patient: MAGALI MARTÍNEZ Age: 67 years Sex: Female : 1955 Associated Diagnoses: None Author: Luci Beasley Discharge Summary Admission Date: 05/22/23 Discharge Date: 05/23/23 Admitting Diagnosis: Left shoulder end-stage rotator cuff arthropathy Discharge Diagnosis: Left shoulder end-stage rotator cuff arthropathy Final Diagnosis: Left shoulder end-stage rotator cuff arthropathy Procedure: Left reverse total shoulder arthroplasty Surgeon: Dr. Ho Orthopedics: The patient is status post left reverse total shoulder arthroplasty. It is anticipatedthat he will be discharged home today. The patient is doing well from a surgical standpoint. Her incision is healing well. Neurovascular status is intact. Calves are supple and nontender. The patientis nonweight bearing on the left upper extremity. Pain is well controlled on her current regime, Oxycodone 5mg to 10mg every 4 hours as needed . Patient is tolerating this well. She will be sent home, this prescription was already sent for this medication. Examination: Dressing: Clean dry and intact. Left upper extremity: full digital ROM noted. EPL and ABL intact. cap refill within normal limits. Neurovascular sensation intact distally. Prescription: Oxycodone 5mg tablet, 1-2 tablets every 4 hours as needed for mild to moderate pain, 7 days Hospital course: Relatively uneventful medically. Patient is voiding spontaneously. + bowel sounds. all morning bowel medications will be given in anticipation of a BM prior to discharge. Denies chest pain/SOB/N/V. Eating well. Allergies: Allergies (Active and Proposed Allergies Only) vancomycin (Severity: Unknown severity, Onset: Unknown) Reactions: rash, allergic only if given IV Disposition: Anticipates being discharged today to home. Follow up at [facility] as previously scheduled , patient is aware of this. The patient has an Aquacel dressing in place. She may shower with it and the dressing can be discontinued on POD 7. Discharge Plan Discharge Disposition Discharge: home. * Malick REDDY, Divine: PERFORM Event Display: Patient Education/Instruction Authored Date: [id number] Inpatient Adult Discharge Instructions [address] [address] Name: MAGALI MARTÍNEZ : 1955 Visit: 05/22/2023 09:56:00 Current Date: 05/23/2023 09:42 Account: [id number] Inpatient Adult Discharge Instructions We would like [...] and their families. Surveys are administered by [employer] ?? If further treatment with your primary care physician or another doctor is recommended, it is important for you to keep the appointment. Call your primary care physician or return to the Emergency Department immediately if your condition worsens, fails to improve, or new symptoms develop. If you need to find a doctor, you can call [facility] [employer] [facility] for a referral at [phone] or toll free at [phone] or log in to [email or web address].. ?? You can view and manage your care through the patient portal or by using a health care robin of your choosing. [employer] is a website that allows you to securely view your medical information including your hospital discharge summary, office visit summaries, medications and follow-up visits. You can also request appointments, renew medications, and request access to your medical information using a health care robin of your choosing, or just ask a question. You can enroll at [email or web address] or register during your next office visit. You have been discharged from [facility], Patient Care Unit: SW7. If you have any questions regarding these instructions after you leave, please call us and we will be happy to assist you. [facility] Your Care Team Attending Physician Vic LIRA, Javan Velazco Discharging Providers Luci Beasley Reason for Admission LEFT SHOULDER GLENOHUMERAL OSTEOARTHRITIS 23OVN Tests Performed Below is a partial list of the tests performed during your hospitalization. You may have had other tests and procedures not included in this list. Please discuss all test results with your provider. Primary Care Provider Max Bacon MD Advance Directive Health Care Proxy on File Yes - Health Care Proxy Discharge Vitals Temperature: 100.3 DegF Height: 153 cm Pulse Rate: 90 bpm Weight: 57 kg Respiratory Rate: 18 br/min Body Mass Index: 24.35 kg/m2 Systolic Blood Pressure: 110 mm Hg Body surface area: 1.56 Diastolic Blood Pressure: 76 mm Hg ?? Oxygen Saturation:??93 %??Low ?? Studies Pending All tests and labs ordered during this hospital stay have been completed unless listed below. Please discuss all pending results with your provider listed above in these instructions. ?? No incomplete studies found What to do next Instructions From Your Doctor Discharge Orders Scheduled Follow-Up Appointments Saturday 11:00 AM EDT ?? With: Arleen LIRA, Max Christine Where: [facility] [address] [place] [address]- Status: Pending You Need to Schedule the Following Appointments Follow Up with??[facility] Discharge Medications MAGALI MARTÍNEZ :1955 Visit Date:05/22/2023 Medications: Please continue your medications until treatment is completed or stopped by your provider. Medications not listed below should be discontinued. Discuss any questions related to medications with your provider. What How Much When Instructions Next Dose Unchanged Acetaminophen- Diphenhydramine (Tylenol PM) Oral Daily at Bedtime May 23 9:00 pm Unchanged BuPROpion (buPROPion 100 mg/ 12 hours (SR) oral tablet, extended release) 1 tab(s) Oral Daily in the morning May 24 9:00 am Unchanged Cholecalciferol (cholecalciferol 1000 intl units oral capsule) 1 capsule Oral Daily May 24 9:00 am Unchanged Clonazepam (clonazePAM 1 mg oral tablet) 1 tab(s) Oral Daily in the morning May 24 9:00 am Unchanged Lamotrigine (lamotrigine 200 mg oral tablet) 1 tab(s) Oral Daily at Bedtime May 23 9:00 pm Unchanged Meloxicam (meloxicam 15 mg oral tablet) 1 tab(s) Oral Daily May 24 9:00 am Unchanged Multivitamin 1 tab(s) Oral Daily May 24 9:00 am Unchanged Ropinirole (rOPINIRole 0.5 mg oral tablet) 1 tab(s) Oral Daily at Bedtime May 23 9:00 pm Unchanged Sertraline (sertraline 100 mg oral tablet) 1.5 tab(s) Oral Daily in the morning May 24 9:00 am Test Results Below is a partial list of the most recent Laboratory test results done prior to this discharge. You may have had other tests and procedures not included in this list. Please discuss all test resultswith your provider. Allergies (NKA means No Known Allergies) vancomycin??(allergic only if given IV, rash) Problems Active Problems??(18) Acute Lyme disease?? Cervical [...] Educational Leaflet Providered with your Discharge Instructions. Oxycodone Oral Tablet 5 mg?? Valuables and Belongings I fully understand and agree that [facility] accepts no responsibility for all my [...] to send valuables and belongings home. ?? Date for Pt to Sign Valuables/Belongings: 05/22/23 10:23:00 ?? Valuables & Belongings ?? Clothes Electronic devices Jewelry Monetary Items Personal devices Miscellaneous Medications (Valuables) Valuables at Bedside Pants, Shirt, Shoes, Undergarments ?? Other: nose piercing ? Valuables Sent Home ? Valuables Sent to Security ? Other Discharge Information ? Pulmonary Rehab Status?? Pulmonary Rehab Discharge Status?? Respiratory Rate: 18 br/min ? Common Emergency Awareness Tips IS IT [...] are strongly encouraged to quit. Please call [facility] [employer] Link at [phone] or [phone] ([phone]) or log in to [email or web address] for referrals to smoking cessation programs. ?? 951 Suicide & Crisis Lifeline is available 10/06 if you or someone you know needs to find a reason to keep living. By calling 261 you'll be connected to a skilled, trained counselor at a crisis center in your area. INPATIENT DISCHARGE INSTRUCTIONS SIGNATURE PAGE MAURICIO MAGALI Location:[facility] Registration Date and Time:05/22/2023 09:56 EDT Primary Care Physician: Max Bacon MD, Attending Physician: Vic LIRA, Javan Velazco, I MAGALI MARTÍNEZ, have received the above patient education materials/instructions and have verbalized understanding. If ambulance or transport services are being used I further acknowledge being given a choice of service. ?? If you need to contact me, please call me at this number: . 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 [id number] Oxycodone Oral Tablet 5 mg Uses For pain. ?? Instructions Some brands of this medicine should be swallowed whole while other brands may be crushed. Ask your pharmacist how you should take your medicine. This medicine may be taken with or without food. Swallow with a full glass (8 oz) of water unless your doctor gives you different instructions. Store at room temperature away from heat, light, and moisture. Do not keep in the bathroom. Please ask your doctor, nurse, or pharmacist how to discard unused medicines safely. To reduce constipation, eat high fiber foods, drink plenty of water and exercise. Avoid grapefruit juice while on this medicine. Drug interactions can change how medicines work or increase risk for side effects. Tell your healthcare providers about all medicines taken. Include prescription and [id number] medicines, vitamins, and herbal medicines. Speak with your doctor or pharmacist before starting or stopping any medicine. Tell your doctor if symptoms do not get better or if they get worse. Parts of this medicine may come out in the stool. This is normal. ?? Cautions This medicine has an opioid. Opioids help many people but may cause addiction, especially if used for a long time. The addiction risk is higher if you have a substance use disorder (overuse of or addiction to drugs or alcohol). Ask your doctor about the benefits and risks. Ask your doctor or pharmacist if you should have naloxone on hand to treat opioid overdose. Teach your family or household members about the signs of an opioid overdose and how to treat it. If you stop this medicine suddenly after using it for a long time, you may have withdrawal. Your doctor may slowly lower your dose before stopping it. Tell your doctor right away if you have symptoms, such as unusual sweating, watering eyes, runny nose, chills, diarrhea, yawning, muscle aches, restlessness, anxiety, trouble sleeping, or thoughts of suicide. Tell your doctor and pharmacist if you ever had an allergic reaction to a medicine. Do not use the medication any more than instructed. This medicine may cause dizziness or fainting, especially after exercising or in hot weather. Be very careful when standing or sitting up quickly. If possible, avoid using with alcohol, marijuana, or other medicines that can cause dizziness or drowsiness. These include allergy/cold products, muscle relaxers, sleep aids, and pain relievers. Your ability to stay alert or to react quickly may be impaired by this medicine. Do not drive or operate machinery until you know how this medicine will affect you. This medicine passes into breast milk. Ask your doctor before . This medicine can hurt a new baby in the womb. If you become while on this medicine, tell your doctor immediately. Your doctor may switch you to a different medicine. This medicine should be used with caution in patients with breathing difficulties. Call your doctor right away if you notice slow or shallow breathing. Do not share this medicine with anyone who has not been prescribed this medicine. Some patients have serious side effects from this medicine. Ask your pharmacist to show you the information from the Food and Drug Administration (FDA) and discuss it with you. ?? Side Effects The following is a list of some common side effects from this medicine. Please speak with your doctor about what you should do if you experience these or other side effects. ??? decreased appetite ??? constipation ??? dizziness or drowsiness ??? lightheadedness ??? nausea and vomiting Call your doctor or get medical help right away if you notice any of these more serious side effects: ??? agitated feeling or trouble sleeping ??? decreased awareness or responsiveness ??? breathing interruption during sleep ??? shallow, irregular breathing ??? confusion ??? fainting ??? hallucinations (unusual thoughts, seeing or hearing things that are not real) ??? seizures ??? severe stomach or bowel pain ??? unusual or unexplained tiredness or weakness ??? difficulty or discomfort urinating ??? weight loss A few people may have an allergic reaction to this medicine. Symptoms can include difficulty breathing, skin rash, itching, swelling, or severe dizziness. If you notice any of these symptoms, seek medical help quickly. ?? Extra Please speak with your doctor, nurse, or pharmacist if you have any questions about this medicine. ?? [email or web address] IMPORTANT NOTE: This document tells you briefly how to take your medicine, but it does not tell youall there is to know about it. Your doctor or pharmacist may give you other documents about your medicine. Please talk to them if you have any questions. Always follow their advice. There is a more complete description of this medicine available in [place]. Scan this code on your smartphone or tablet or use the web address below. You can also ask your pharmacist for a printout. If you have any questions, please ask your pharmacist. The display and use of this drug information is subject to Terms of Use. Copyright(c) 2022 [employer]. ?? The [employer], [employer]. All rights reserved. This information is not intended as a substitute for professional medical care. Always follow your healthcare professional's instructions. ?? Patient Care team information Care Team Personnel Name: Nika Davalos RN Position: [facility] RN Member Role: Primary Care Nurse Name: Kathryn Castro RN Position: [facility] RN Member Role: Primary Care Nurse Name: Max Bacon MD Position: [facility] Physician - Primary Care Member Role: PCP Address: Address: [address] [place] [address] Adult & Pediatric Medicine [place], [place] [address] Name: Yasmin Paige RN Position: S RN Member Role: Primary Care Nurse Name: Raheem Sam RN Position: [facility] RN Member Role: Primary Care [...] Persons Name: MAURICIO CHINA Address: home [address] [place] [address] Name: VIVEK PATEL Address: home [address] [place] [address]
--- OUTSIDE RECORDS SUMMARY | 2024-05-14 15:00 | XMS_ITS | Continuity of Care Document ---
Author Organization [facility] Address [address] [place] [address]- Care Team Providers Care Patient Care Coordinator Name Role Phone Arleen LIRA, Max Christine Primary Care Physician [facility] 10[facility]18[facility]21 - 11/17/21 [facility] [address] [place] [address]- Allergies, Adverse Reactions, Alerts Substance Reaction Severity [...] Note: per paper chart 2Result Comment: [08/15/2018] [id number] 3Result Comment: [09/23/2017] [id number] 4Admin Note: FLUZONE [id number] 5Admin Note: sanofi pasteur Vaccine information statement [...] pack/packet, 0 Refills, Maintenance, 08/31/21 16:42:00 EDT, [facility]/pharmacy #[id number], Partial fill upon patient request if the prescription is for a schedule II opioid drug., 153, cm, 06/12/21 12:03:00... Start Date: 08/31/21 Status: Ordered nicotine 14 mg/24 hr transdermal film, extended release 1 patch, Topically, Daily, # 28 patch, 1 Refills, Acute, 05/16/20 17:42:00 EDT, [facility] STORE [id number], 28, APPLY 1 PATCH TOPICALLY DAILY, 154.94, [...] 08/31/21 16:42:00 EDT, Route to Pharmacy Electronically, [facility]/pharmacy #[id number], Partial fill upon patient request if the [...]
--- OUTSIDE RECORDS SUMMARY | 2024-05-14 15:00 | XMS_ITS | Continuity of Care Document ---
Author Organization [facility] Address [address] [place] [address]- Care Team Providers Care Plastic Products Sales Representative Name Role Phone Arleen LIRA, Max Christine Primary Care Physician [phone] Encounter 03/27/24 - 04/10/24 [facility] [address] [place] [address]- Discharge Disposition: [facility] Allergies, Adverse Reactions, [...] Note: per paper chart 3Result Comment: [08/15/2018] [id number] 4Result Comment: [09/23/2017] [id number] 5Admin Note: FLUZONE [id number] 6Admin Note: sanofi pasteur Vaccine information statement (05/29/06) given to patient. 7Admin Note: pt declined, unavailable 8Admin Note: Declined Medications aspirin 81 mg oral capsule 1 capsule = 81 mg, By Mouth, 2 times a day, PRN as needed for pain, not to exceed 12 capsules/day, # 30 capsule, 0 Refills, Maintenance, 03/26/24 11:50:00 EDT, Capsule, [id number], Partial fill upon patient request [...] Refills, Maintenance, 04/07/24 21:41:00 EDT, EC Tablet, [facility]/pharmacy #[id number], Partial fill upon patient [...] Care Nurse Name: Kathryn Castro RN Position: [facility] SN RN Member Role: Primary Care Nurse Name: Yolanda Faust RN Position: S RN Member Role: Primary Care Nurse Name: Max Bacon MD Position: [facility] Physician - Primary Care Member Role: PCP Address: Address: [address] [place] [address] Adult & Pediatric Medicine [address] Name: Yasmin Paige RN Position: S [...] Persons Name: CHINA MARTÍNEZ Address: home [address] [place] [address] Name: VIVEK PATEL Address: home [address] [place] [address]
--- OUTSIDE RECORDS SUMMARY | 2024-05-14 15:00 | XMS_ITS | Continuity of Care Document ---
Author Organization [facility] Address [address] [place] [address]- Care Team Providers Care Calender Worker Helper Name Role Phone Arleen LIRA, Max Christine Primary Care Physician Encounter [facility] Date(s): 01/16/23 - 03/17/23 [facility] [address] [place] [address] Attending Physician: Veronica LIRA, Xavi Segundo Admitting Physician: Veronica LIRA, Xavi Segundo Allergies, Adverse Reactions, Alerts Substance Reaction Severity [...] Note: per paper chart 3Result Comment: [08/15/2018] [id number] 4Result Comment: [09/23/2017] [id number] 5Admin Note: FLUZONE [id number] 6Admin Note: sanofi pasteur Vaccine information statement [...] Soft Stop, 01/16/23 16:55:00 EST, Tablet, [facility]/pharmacy #[id number], Partial fill upon patient request if the [...] 1 Refills, Maintenance, 11/20/22 12:42:00 EST, [facility]/pharmacy #[id number], 28, 1 patch Topically Daily, 149.86, [...] 03/18/23 16:29:00 EDT, 03/08/23 16:29:00 EDT, Capsule, [id number], Partial fill upon patie... Start Date: [...] Team Personnel Name: Nika Davalos RN Position: [facility] RN Member Role: Primary Care Nurse Name: Kathryn Castro RN Position: [facility] RN Member Role: Primary Care Nurse Name: Max Bacon MD Position: [facility] Primary Care Physician Member Role: PCP Address: Address: [address] [place] [address] Adult & Pediatric Medicine [place], [place] [address] Name: Yasmin Paige RN Position: S [...] Persons Name: CHINA MARTÍNEZ Address: home [address] [place] [address] Name: VIVEK PATEL Address: home [address] [place] [address]
--- OUTSIDE RECORDS SUMMARY | 2024-05-14 15:00 | XMS_ITS | Continuity of Care Document ---
Author Organization [facility] Address [address] [place] [address]- Care Team Providers Care Seed Production Field Supervisor Name Role Phone Arleen LIRA, Max Christine Primary Care Physician [phone] [facility]s): 03/30/22 - 04/29/22 [facility] [address] [place], [place] [address] Allergies, Adverse Reactions, Alerts Substance Reaction [...] Note: per paper chart 2Result Comment: [08/15/2018] [id number] 3Result Comment: [09/23/2017] [id number] 4Admin Note: FLUZONE [id number] 5Admin Note: sanofi pasteur Vaccine information statement [...]
--- OUTSIDE RECORDS SUMMARY | 2024-05-14 15:00 | XMS_ITS | Continuity of Care Document ---
Author Organization [facility] Address [address] [place] [address]- Care Team Providers Care Strength And Conditioning Coach Name Role Phone Arleen LIRA, Max Christine Primary Care Physician [facility] Date(s): 06/14/21 - 07/14/21 [facility] [address] [place], [place] [address] Allergies, Adverse Reactions, Alerts Substance Reaction [...] Note: per paper chart 2Result Comment: [08/15/2018] [id number] 3Result Comment: [09/23/2017] [id number] 4Admin Note: FLUZONE [id number] 5Admin Note: sanofi pasteur Vaccine information statement [...] patch, 1 Refills, Acute, 05/16/20 17:42:00 EDT, [facility] STORE [id number], 28, APPLY 1 PATCH TOPICALLY DAILY, 154.94, [...]
--- OUTSIDE RECORDS SUMMARY | 2024-05-14 15:00 | XMS_ITS | Continuity of Care Document ---
Author Organization [facility] Address [address] [facility] [address] [place] [address]- Care Team Providers Care Stogie Packer Name Role Phone Max Bacon MD Primary Care Physician [phone] Encounter 10/25/23 - 11/01/23 [facility] [address], [address] [place] [address]- Attending Physician: Max Bacon MD Admitting Physician: [...] Note: per paper chart 3Result Comment: [08/15/2018] [id number] 4Result Comment: [09/23/2017] [id number] 5Admin Note: FLUZONE [id number] 6Admin Note: sanofi pasteur Vaccine information statement [...] Confirmed Active Urinary incontinence Confirmed Active Results Radiology Reports * Exam Date Time Procedure Performing Provider Status 10/25/23 10:20 AM MM Digital Mammo Screening Ana Shin; Gerald (Verified) Notes: (MM Digital Mammo Screening) Reason For Exam: ROUTEN SCREENIN Z12.31 RESULT: MM Digital Mammo Screening PROCEDURE: MM Digital Mammo Screening INDICATION: Screening for breast cancer. No known palpable abnormalities. COMPARISON: Prior mammograms most recently dated 01/19/2020. TECHNIQUE: Full-field digital CC and MLO 3D tomosynthesis images of both breasts were acquired. Computer-aided detection (CAD) was utilized in the interpretation of this study. DENSITY: The breast tissue contains scattered areas of fibroglandular density. FINDINGS: No suspicious masses, suspicious microcalcifications, or areas of architectural distortion are seen in either breast to suggest malignancy. IMPRESSION: No mammographic evidence of malignancy. RECOMMENDATION: Annual mammographic screening BI-RADS: 1 (Negative) Lay letter mailed to patient WSN: [id number] Ordering Physician: Max Bacon Dictated By: Navya Rodriguez MD Dictated Date/Time: 10/25/23 10:31 am Reviewed By: Navya Rodriguez MD Signed By: Navya Rodriguez MD Signed Date/Time: 10/25/23 10:31 am Transcribed By: ROBY Armature Winder Helper Repair Date/Time: 10/25/23 10:29 am Birads: Social History Social History Type Response Smoking Status Former smoker; Numbe r of years: 44; Total pack years: 44; Started at age: 15; Stopped at age: 59; entered on: 03/21/18 Sex Patient Care team information Care Team Personnel Name: Nika Davalos RN Position: S RN Member Role: Primary Care Nurse Name: Kathryn Castro RN Position: [facility] RN Member Role: Primary Care Nurse Name: Max Bacon MD Position: [facility] Physician - Primary Care Member Role: PCP Address: Address: [address] [place] [address] Adult & Pediatric Medicine [address] Name: Yasmin Paige RN Position: S [...] Persons Name: CHINA MARTÍNEZ Address: home [address] [place] [address] Name: VIEVK PATEL Address: home [address] [place] [address]
--- OUTSIDE RECORDS SUMMARY | 2024-05-14 15:00 | XMS_ITS | Continuity of Care Document ---
Author Organization [facility] Address [address] [place] [address]- Care Team Providers Care District Wildlife Manager Name Role Phone Arleen LIRA, Max Christine Primary Care Physician [phone] [facility]s): 01/18/23 - 02/17/23 [facility] [address] [place], [place] [address] Allergies, Adverse Reactions, Alerts Substance [...] Note: per paper chart 3Result Comment: [08/15/2018] [id number] 4Result Comment: [09/23/2017] [id number] 5Admin Note: FLUZONE [id number] 6Admin Note: sanofi pasteur Vaccine information statement (05/29/06) given to patient. 7Admin Note: pt declined, unavailable 8Admin Note: Declined Medications amoxicillin 500 mg oral capsule 1 capsule = 500 mg, By Mouth, 3 times a day, for 6 week(s), # 126 capsule, 0 Refills, Acute 03/14/23 13:43:00 EDT, 01/31/23 13:43:00 EDT, [facility]/pharmacy #[id number], Partial fill upon patient request [...] Refills, Soft Stop, 01/16/23 16:55:00 EST, Tablet, [facility]/pharmacy #[id number], Partial fill upon patient request [...] patch, 1 Refills, Maintenance, 11/20/22 12:42:00 EST, [facility]/pharmacy #[id number], 28, 1 patch Topically Daily, [...] RN Position: [facility] RN Member Role: Primary Care Nurse Name: Kathryn Castro RN Position: [facility] RN Member Role: Primary Care Nurse Name: Max Bacon MD Position: [facility] Primary Care Physician Member Role: PCP Address: Address: [address] [place] [address] Adult & Pediatric [address] Name: Yasmin Paige RN Position: S [...] Persons Name: CHINA MARTÍNEZ Address: home [address] [place] [address] Name: VIVEK PATEL Address: home [address] [place] [address]
--- OUTSIDE RECORDS SUMMARY | 2024-05-14 15:00 | XMS_ITS | Continuity of Care Document ---
Author Organization [facility] Address [address] [place] [address]- Care Team Providers Care Patrol Driver Name Role Phone Arleen LIRA, Max Christine Primary Care Physician [facility] 06/19/21 - 07/19/21 [facility] [address] [place], [place] [address] Attending Physician: Admtr, Ar8 Allergies, [...] Note: per paper chart 2Result Comment: [08/15/2018] [id number] 3Result Comment: [09/23/2017] [id number] 4Admin Note: FLUZONE [id number] 5Admin Note: sanofi pasteur Vaccine information statement [...] patch, 1 Refills, Acute, 05/16/20 17:42:00 EDT, [facility] STORE 18573, 28, APPLY 1 PATCH TOPICALLY DAILY, 154.94, [...]
--- OUTSIDE RECORDS SUMMARY | 2024-05-14 15:00 | XMS_ITS | Continuity of Care Document ---
Author Organization [facility] Address [address] [place] [address]- Care Team Providers Care Surface Grinder Name Role Phone Arleen LIRA, Max Christine Primary Care Physician [facility]s): 03/04/24 - 04/03/24 [facility] [address] [place] [address]- Attending Physician: Admmichell, Kailyn Admitting Physician: AdmtrKailyn Referring Physician: Admtr, Ar8 [...] Note: per paper chart 3Result Comment: [08/15/2018] [id number] 4Result Comment: [09/23/2017] [id number] 5Admin Note: FLUZONE [id number] 6Admin Note: sanofi pasteur Vaccine information statement (05/29/06) given to patient. 7Admin Note: pt declined, unavailable 8Admin Note: Declined Medications acetaminophen 325 mg oral tablet 975 mg, By Mouth, Every 6 hours, for 10 days, # 50 tablet, Refills 0, Tot. Refills 0, Acute 04/05/24 11:47:00 EDT, 03/26/24 11:47:00 EDT, Route to Pharmacy Electronically, [facility]/pharmacy #[id number], Partialfill upon patient request if the prescription is fo... Start Date: 03/26/24 Stop Date: 04/05/24 Status: Ordered aspirin 81 mg oral capsule 1 capsule = 81 mg, By Mouth, 2 times a day, PRN as needed for pain, not to exceed 12 capsules/day, # 30 capsule, 0 Refills, Maintenance, 03/26/24 11:50:00 EDT, Capsule, [facility]/pharmacy #[id number], Partial fill upon patient request if [...] 0 Refills, Maintenance, 03/26/24 11:47:00 EDT, Tablet, [facility]/pharmacy #[id number], Partial fill upon patient request if [...] 01/07/15 14:40:08 Start Date: 01/07/15 Status: Ordered MiraLax oral powder for reconstitution = 17 Gm, By Mouth, Daily, for 10 days, dissolve in 4 to 8 oz of water or juice. Hold for diarrhoea,# 170 Gm, 0 Refills, Acute 04/05/24 11:48:00 EDT, 03/26/24 11:48:00 EDT, REC Powder, [facility]/pharmacy #[id number], Partial fill upon patient request if the presc... Start Date: 03/26/24 Stop Date: 04/05/24 Status: Ordered Multivitamin 1 tablet, By Mouth, [...] Team Personnel Name: Nika Davalos RN Position: [facility] RN Member Role: Primary Care Nurse Name: Kathryn Castro RN Position: [facility] SN RN Member Role: Primary Care Nurse Name: Yolanda Faust RN Position: S RN Member Role: Primary Care Nurse Name: Max Bacon MD Position: [facility] Physician - Primary Care Member Role: PCP Address: Address: [address] [place] [address] Adult & Pediatric Medicine [address] Name: Yasmin Paige RN Position: S [...] Care Nurse Care Team Related Persons Name: TERRIECHINA MARLEY Address: home [address] [place] [address] Name: VIVEK PATEL Address: home [address] [place] [address]
--- OUTSIDE RECORDS SUMMARY | 2024-05-14 15:00 | XMS_ITS | Continuity of Care Document ---
Author Organization [facility] Address [address] [place] [address]- Care Team Providers Care Upper Doubler Name Role Phone Arleen LIRA, Max Christine Primary Care Physician [facility]s): 04/09/23 - 05/09/23 [facility] [address] [place], [place] [address] Allergies, Adverse Reactions, Alerts [...] Note: per paper chart 3Result Comment: [08/15/2018] [id number] 4Result Comment: [09/23/2017] [id number] 5Admin Note: FLUZONE [id number] 6Admin Note: sanofi pasteur Vaccine information statement [...] Care Nurse Name: Kathryn Castro RN Position: [facility] SN RN Member Role: Primary Care Nurse Name: Max Bacon MD Position: [facility] Physician - Primary Care Member Role: PCP Address: Address: [address] [place] [address] Adult & Pediatric Medicine [address] Name: Yasmin Paige RN Position: S [...] Persons Name: MAURICIO CHINA Address: home [address] [place] [address] Name: VIVEK PATEL Address: home [address] [place] [address]
--- OUTSIDE RECORDS SUMMARY | 2024-05-14 15:00 | XMS_ITS | Continuity of Care Document ---
Author Organization [facility] Address [address] [place] [address]- Care Team Providers Care Champion Of Sustainable Design Name Role Phone Arleen LIRA, Max Christine Primary Care Physician [facility]s): 06/19/21 - 07/19/21 [facility] [address] [place], [place] [address] Allergies, Adverse Reactions, Alerts Substance [...] Note: per paper chart 2Result Comment: [08/15/2018] [id number] 3Result Comment: [09/23/2017] [id number] 4Admin Note: FLUZONE [id number] 5Admin Note: sanofi pasteur Vaccine information statement [...] patch, 1 Refills, Acute, 05/16/20 17:42:00 EDT, [facility] ST[facility] 71864, 28, APPLY 1 PATCH TOPICALLY DAILY, 154.94, [...]
--- OUTSIDE RECORDS SUMMARY | 2024-05-14 15:00 | XMS_ITS | Continuity of Care Document ---
Author Organization [facility] Address [address] [place] [address]- Care Team Providers Care Bag Loader Name Role Phone Max Bacon MD Primary Care Physician [phone] [facility]): 04[facility]/23 - 04/16/23 [facility] [address] [place], [place] [address] Attending Physician: Max Bacon MD Allergies, Adverse [...] Note: per paper chart 3Result Comment: [08/15/2018] [id number] 4Result Comment: [09/23/2017] [id number] 5Admin Note: FLUZONE [id number] 6Admin Note: sanofi pasteur Vaccine information statement [...] to oldest [Reference Range]: 1 2 Height 149.86 cm (04/09/23 9:07 AM) 149.86 cm (04/09/23 8:35 AM) Weight 56.5 kg (04/09/23 8:35 AM) Oxygen Saturation [94-100 %] 96 % (04/09/23 8:35 AM) Pulse Rate [55-90 bpm] 80 bpm (04/09/23 8:35 AM) Body Mass Index [18.5-24.99 kg/m2] 25.16 kg/m2 *H* (04/09/23 8:35 AM) Blood Pressure [90-138/55-84 mm Hg] 134/ 90mm Hg (04/09/23 9:07 AM) 142/90mm Hg *H* (04/09/23 8:35 AM) Blood pressure sites Arm, left (04/09/23 8:35 AM) Weight Obtained Via Standing scale (04/09/23 8:35 AM) Social History Social History Type Response Smoking Status Former smoker; Numbe r of years: 44; Total pack years: 44; Started at age: 15; Stopped at age: 59; entered on: 03/21/18 Sex Note * Clarisse Downing: PERFORM, SIGN, VERIFY Event Display: Patient Education/Instruction Authored Date: [id number] [facility] *[facility] Clinical Summary Name MAGALI MARTÍNEZ Age 67 Years 1955 PCP Arleen LIRA, Max [id number] Visit Date 04/09/2023 08:20:00 Additional Instructions: Scheduled Appointments?? Future Appointments ?*[facility] ?Phone:??--?Fax:??-- ?Appt. Date:??04/17/2023?2:30 PM ?Scheduled Provider:??Aamir Harman Follow-Up Instructions ?? Diagnosis Noninfective gastroenteritis and colitis, unspecified; Elevated blood-pressure reading, without diagnosis of hypertension; Major depressive disorder, single episode, unspecified Medications: Please continue your medications until treatment is completed or stopped by your provider. Discuss any questions related to medications with your provider. Medications to Continue with No Changes These medications were not printed or sent to your pharmacy BuPROpion (buPROPion 100 mg/12 hours (SR) oral tablet, extended release) 1 tab(s) Oral Daily. Next Dose: Cholecalciferol (cholecalciferol 1000 intl units oral capsule) 1 capsule Oral Daily. Next Dose: Clonazepam (clonazePAM 1 mg oral tablet) 1 tab(s) Oral Daily in the morning. Next Dose: Lamotrigine (lamotrigine 200 mg oral tablet) 1 tab(s) Oral Daily at Bedtime. Next Dose: Meloxicam (meloxicam 15 mg oral tablet) Next Dose: Multivitamin 1 tab(s) Oral Daily. Next Dose: Ropinirole (rOPINIRole 0.5 mg oral tablet) 1 tab(s) Oral 3 times a day. Next Dose: Sertraline (sertraline 100 mg oral tablet) 1.5 tab(s) Daily. Next Dose: No Longer Take the Following Medications Fluconazole (fluconazole 150 mg oral tablet) 1 tab(s) Oral once. repeat dose if still having symptoms in 72 hours. Refills: 0. Nicotine (nicotine 14 mg/24 hr transdermal film, extended release) 1 patch(es) Topically Daily. Refills: 1. Omeprazole (omeprazole 20 mg oral delayed release tablet) 1 tab(s) Oral Daily. Oxycodone (oxyCODONE 5 mg oral tablet) 1 tab(s) Oral every 6 hours as needed Pain , Moderate. Oxycodone (oxyCODONE 5 mg oral tablet) 2 tab(s) Oral every 6 hours as needed Pain , Severe. Allergy Info:?? vancomycin Medications Given This Visit Future Orders ?No future orders Vital Signs Height 149.86 cm Weight 56.5 kg BMI 25.16 kg/m2 Blood Pressure 134 mm Hg/90 mm Hg Temperature Pulse Rate 80 bpm Respiratory Rate 02 Sat Mode of Delivery 96 %/ You can now view a summary of your hospital visit from the comfort of your home through a free online portal called [employer]. [employer] is a website that allows you to securely view your medical information including discharge summary, medications and follow-up visits. ??You can alsosend a secure electronic message to your doctor???s office to request appointments, renew medications or just ask a question. You can enroll at [email or web address] or register during your next office visit. Disclaimer:?? The information provided is of a general nature and is intended to be used in conjunction with the recommendations and advice of your health care practitioner. ??Every effort has been made to ensure that the information provided is accurate and complete at the time it is provided to you however, as your needs change, or, as new ??information becomes available, different or additional instructions may be required. If you have questions, please consult with your primary care provider or pharmacist, as appropriate. ??This information is not intended to serve as substitution for assessment and evaluation by a qualified health care provider. If you do not have a primary care provider, you may find a [facility] provider by calling [facility] at [phone]. For information about the plan of care including goals and instructions for your diagnosis, please see the patient education orders section of this document. Patient Education Materials?? The content of this educational material or handout may have been modified, supplemented, or adapted from its original content and format to support your individualized medical care. Additional Provider Instructions: TAKE ONE PROBIOTIC daily and METAMUCIL 1 tsp in 8 oz of water daily please contact Dr Noyola about your depression eat one apple daily do not add any salt to anything Patient Care team information Care Team Personnel Name: Nika Davalos RN Position: [facility] RN Member Role: Primary Care Nurse Name: Kathryn Castro RN Position: [facility] RN Member Role: Primary Care Nurse Name: Max Bacon MD Position: [facility] Physician - Primary Care Member Role: PCP Address: Address: [address] [place] [address] Adult & Pediatric Medicine [address] Name: Yasmin Paige RN Position: [facility] RN Member Role: Primary Care Nurse Name: Iris Harrington RN Position: S RN Member Role: Primary Care Nurse Name: Ainsley Rivers RN Position: S RN Member Role: Primary Care Nurse Name: Tish Blank RN Position: [facility] RN Member Role: Primary Care Nurse Name: Eladio Bettencourt RN Position: S RN Member Role: Primary Care Nurse Care Team Related Persons Name: CHINA MARTÍNEZ Address: home [address] [place] [address] Name: VIVEK PATEL Address: home [address] [place] [address]
--- OUTSIDE RECORDS SUMMARY | 2024-05-14 15:00 | XMS_ITS | Continuity of Care Document ---
Author Organization [facility] Address [address] [place] [address]- Care Team Providers Care Sales Representative Health Insurance Name Role Phone Arleen LIRA, Max Christine Primary Care Physician [phone] [facility] 07[facility]20 - 08/24/20 [facility] [address] [place] [address]- [facility] Allergies, Adverse Reactions, Alerts Substance Reaction Severity [...] Note: per paper chart 2Result Comment: [08/15/2018] [id number] 3Result Comment: [09/23/2017] [id number] 4Admin Note: FLUZONE [id number] 5Admin Note: sanofi pasteur Vaccine information statement [...] 4 capsule, 4 Refills, Acute, [facility], 154.94, cm, 07/04/20 16:45:00 EDT, Height, 61.1, [...] Refills, Acute, 05/16/20 17:42:00 EDT, [facility], 28, APPLY 1 PATCH TOPICALLY DAILY, 154.94, [...] and prn, 02/07/17 13:38:46, Compound Start Date: 3/23/17 Status: Ordered Wellbutrin XL 300 mg/24 hours [...]
--- OUTSIDE RECORDS SUMMARY | 2024-05-14 15:00 | XMS_ITS | Continuity of Care Document ---
Author Organization [facility] Address [address] [place] [address]- Care Team Providers Care Inside Sales Executive Name Role Phone Arleen LIRA, Max Christine Primary Care Physician [phone] [facility] 03[facility]07[facility]23 - 04/06/23 [facility] [address] [place], [place] [address] Allergies, Adverse Reactions, Alerts Substance [...] Note: per paper chart 3Result Comment: [08/15/2018] [id number] 4Result Comment: [09/23/2017] [id number] 5Admin Note: FLUZONE [id number] 6Admin Note: sanofi pasteur Vaccine information statement [...] Refills, Soft Stop, 01/16/23 16:55:00 EST, Tablet, [facility]/pharmacy #[id number], Partial fill upon patient request [...] patch, 1 Refills, Maintenance, 11/20/22 12:42:00 EST, [facility]/pharmacy #[id number], 28, 1 patch Topically Daily, [...] Care team information Care Team Personnel Name: Nkia Davalos RN Position: S RN Member Role: Primary Care Nurse Name: Kathryn Castro RN Position: [facility] SN RN Member Role: Primary Care Nurse Name: Max Bacon MD Position: [facility] Primary Care Physician Member Role: PCP Address: Address: [address] [place] [address] Adult & Pediatric Medicine [address] Name: Yasmin Paige RN Position: [...] Persons Name: CHINA MARTÍNEZ Address: home [address] [place] [address] Name: VIVEK PATEL Address: home [address] [place] [address]
--- OUTSIDE RECORDS SUMMARY | 2024-05-14 15:00 | XMS_ITS | Continuity of Care Document ---
Author Organization [facility] Address [address] [place] [address]- Care Team Providers Care Brokerage Purchase And Sale Clerk Name Role Phone Max Bacon MD Primary Care Physician [phone] [facility](s): 06/19/21 - 06/26/21 [facility] [address] [place], [place] [address] Attending Physician: Max Bacon MD Allergies, Adverse [...] Note: per paper chart 2Result Comment: [08/15/2018] [id number] 3Result Comment: [09/23/2017] [id number] 4Admin Note: FLUZONE [id number] 5Admin Note: sanofi pasteur Vaccine information statement [...] 07/03/21 13:44:00 EDT, 06/19/21 13:44:00 EDT, Tablet, [facility]/pharmacy #[id number], Partial fill upon patien... Start Date: [...] patch, 1 Refills, Acute, 05/16/20 17:42:00 EDT, [facility], 28, APPLY 1 PATCH TOPICALLY DAILY, 154.94, [...]
--- OUTSIDE RECORDS SUMMARY | 2024-05-14 15:00 | XMS_ITS | Continuity of Care Document ---
Author Organization [facility] Address [address] [place] [address]- Care Team Providers Care Online Marketing Specialist Name Role Phone Max Bacon MD Primary Care Physician Encounter 01/19/20 - 01/26/20 [facility] [address], [facility] [address] [place] [address]- [phone] Attending Physician: Max Bacon MD Admitting Physician: [...] Note: per paper chart 2Result Comment: [08/15/2018] [id number] 3Result Comment: [09/23/2017] [id number] 4Admin Note: FLUZONE [id number] 5Admin Note: sanofi pasteur Vaccine information statement [...] 0 Refills, Maintenance, 11/30/19 17:21:00 EST, Patch, [facility]/pharmacy #[id number], 154.94, cm, 07/02/19 16:12:00 EDT, Height, 61.1, kg, 07/09/18 8:13:00 EDT, Dry Weight Start Date: 11/30/19 Status: Ordered Nicoderm C-Q Clear 14 mg/24 hr transdermal film, extended release 1 patch, Topically, Daily, # 30 patch, 0 Refills, Maintenance, 01/21/20 11:45:00 EST, Patch, [facility]/pharmacy #[id number], 154.94, cm, 01/18/20 15:49:00 EST, Height, [...]
--- OUTSIDE RECORDS SUMMARY | 2024-05-14 15:00 | XMS_ITS | Continuity of Care Document ---
Author Organization [facility] Address [address] [facility] [place] [address]- Care Team Providers Care Hall Cleaner Name Role Phone Max Bacon MD Primary Care Physician [phone] Encounter 07/19/23 - 09/19/23 [facility] [address], [address] [place] [address]- Attending Physician: Max Bacon MD Admitting Physician: [...] Note: per paper chart 3Result Comment: [08/15/2018] [id number] 4Result Comment: [09/23/2017] [id number] 5Admin Note: FLUZONE [id number] 6Admin Note: sanofi pasteur Vaccine information statement [...] Primary Care Member Role: PCP Address: Address: [address] [place] [address] Adult & Pediatric Medicine [address] Name: Yasmin aPige RN Position: S RN Member Role: Primary [...] Persons Name: CHINA MARTÍNEZ Address: home [address] [place] [address] Name: VIVEK PATEL Address: home [address] [place] [address]
--- OUTSIDE RECORDS SUMMARY | 2024-05-14 15:00 | XMS_ITS | Continuity of Care Document ---
Author Organization [facility] Address [address] [place] [address]- Care Team Providers Care Bunker Worker Name Role Phone Max Bacon MD Primary Care Physician [facility] 04[facility]/20 - 05/06/20 [facility] [address] [place] [address]- [facility] Attending Physician: Kailyn Montoya Admitting Physician: AdmKailyn galarza Referring Physician: AdmtrKailyn Allergies, Adverse Reactions, Alerts [...] Note: per paper chart 2Result Comment: [08/15/2018] [id number] 3Result Comment: [09/23/2017] [id number] 4Admin Note: FLUZONE [id number] 5Admin Note: sanofi pasteur Vaccine information statement [...] 4 Refills, Soft Stop, 01/27/20 13:23:00 EDT, [id number], 154.94, cm, 01/18/20 15:49:00 EST, [...] 1 patch, Topically, Daily, # 30 patch, 1 Refills, Maintenance, 02/16/20 15:33:00 EDT, Patch, [id number], 154.94, cm, 01/18/20 15:49:00 EST, Height, 61.1, kg, 07/09/18 8:13:00 EDT, Dry Weight Start Date: 02/16/20 Status: Ordered QUEtiapine 25 mg oral tablet [...]
--- OUTSIDE RECORDS SUMMARY | 2024-05-14 15:00 | XMS_ITS | Continuity of Care Document ---
Author Organization [facility] Address [address] [place] [address]- Care Team Providers Care Purchasing Assistant Name Role Phone Max Bacon MD Primary Care Physician [phone] [facility]): 07[facility]04/20 - 08/03/20 [facility] [address] [place] [address]- [facility] Attending Physician: Kailyn Monotya Admitting Physician: AdmKailyn galarza Referring Physician: AdmtrKailyn [...] Note: per paper chart 2Result Comment: [08/15/2018] [id number] 3Result Comment: [09/23/2017] [id number] 4Admin Note: FLUZONE [id number] 5Admin Note: sanofi pasteur Vaccine information statement [...] 4 capsule, 4 Refills, Acute, [facility], 154.94, cm, 07/04/20 16:45:00 EDT, Height, 61.1, [...] Refills, Acute, 05/16/20 17:42:00 EDT, [facility], 28, APPLY 1 PATCH TOPICALLY DAILY, 154.94, [...]
--- OUTSIDE RECORDS SUMMARY | 2024-05-14 15:00 | XMS_ITS | Continuity of Care Document ---
Author Organization [facility] Address [address] [place] [address]- Care Team Providers Care Head Girls Golf Coach Name Role Phone Max Bacon MD Primary Care Physician [facility]s): 09/07/21 - 10/26/21 [facility] [address] [place], [place] [address] Attending Physician: Max Bacon MD Allergies, Adverse [...] Note: per paper chart 2Result Comment: [08/15/2018] [id number] 3Result Comment: [09/23/2017] [id number] 4Admin Note: FLUZONE [id number] 5Admin Note: sanofi pasteur Vaccine information statement [...] pack/packet, 0 Refills, Maintenance, 08/31/21 16:42:00 EDT, [facility]/pharmacy #[id number], Partial fill upon patient request if the prescription is for a schedule II opioid drug., 153, cm, 06/12/21 12:03:00... Start Date: 08/31/21 Status: Ordered nicotine 14 mg/24 hr transdermal film, extended release 1 patch, Topically, Daily, # 28 patch, 1 Refills, Acute, 05/16/20 17:42:00 EDT, [facility], 28, APPLY 1 PATCH TOPICALLY DAILY, 154.94, [...] 08/31/21 16:42:00 EDT, Route to Pharmacy Electronically, [facility]/pharmacy #[id number], Partial fill upon patient request if the [...]
== END 2024-05-14 14:56 | disposition home or self-care (01) ==
LOC: HO.HOP 14:55
PROVIDERS: PCP Internal Medicine; Visit Provider Psychiatry & Neurology Psychiatry
DX: F33.9 Major depressive disorder, recurrent, unspecified (principal); F41.1 Generalized anxiety disorder
CPT/HCPCS: 99214

== ENCOUNTER → 2024-05-14 14:55 | Outpatient (BNVA) | payer MEDICARE, MEDICAID, SELFPAY | PROVIDERS: PCP Internal Medicine; Visit Provider Psychiatry & Neurology Psychiatry ==

== ENCOUNTER 2024-08-12 15:06 | Outpatient (AMB) | payer MEDICARE, MEDICAID, SELFPAY ==
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
--- OUTSIDE RECORDS SUMMARY | 2024-08-12 15:08 | XMS_ITS | Continuity of Care Document ---
Author Organization [facility] [address] [facility] [place] [address]- Care Team Providers Care Fluid Pump Operator Name Role Phone Max Bacon MD Primary Care Physician [phone] Encounter 06/07/22 - 07/18/22 [facility] [address], [address] [place] [address]- Attending Physician: Max Bacon MD Admitting Physician: [...] Note: per paper chart 2Result Comment: [08/15/2018] [id number] 3Result Comment: [09/23/2017] [id number] 4Admin Note: FLUZONE [id number] 5Admin Note: sanofi pasteur Vaccine information statement [...] Team Personnel Name: Max Bacon MD Address: [address] [place] [address] Adult & Pediatric Medicine [place], [place] [address]
--- OUTSIDE RECORDS SUMMARY | 2024-08-12 15:10 | XMS_ITS | Continuity of Care Document ---
Author Organization [facility] Address [address] [place] [address]- Care Team Providers Care Nursing Unit Manager Name Role Phone Arleen LIRA, Max Christine Primary Care Physician [facility] 07/02/24 - 08/01/24 [facility] [address] [place] [address]- Allergies, Adverse Reactions, Alerts Substance Reaction Severity [...] Note: per paper chart 3Result Comment: [08/15/2018] [id number] 4Result Comment: [09/23/2017] [id number] 5Admin Note: FLUZONE [id number] 6Admin Note: sanofi pasteur Vaccine information statement (05/29/06) given to patient. 7Admin Note: pt declined, unavailable 8Admin Note: Declined Medications aspirin 81 mg oral capsule 1 capsule = 81 mg, By Mouth, 2 times a day, PRN as needed for pain, not to exceed 12 capsules/day, # 30 capsule, 0 Refills, Maintenance, 03/26/24 11:50:00 EDT, Capsule, [facility]/pharmacy #[id number], Partial fill upon [...] 06/20/22 Status: Ordered omeprazole 20 mg oral enteric coated capsule See Instructions, TAKE 1 CAPSULE BY MOUTH TWICE A DAY, # 180 capsule, 3 Refills, Maintenance, 07/03/24 14:27:00 EDT, [facility], 152.4, cm, 03/26/24 13:24:00 EDT, Height, 59.1, kg, 03/25/24 16:39:00 EDT, Dry Weight Start Date: 07/03/24 Status: Ordered rOPINIRole 0.5 mg oral tablet [...] Care Nurse Name: Kathryn Castro RN Position: [facility] SN RN Member Role: Primary Care Nurse Name: Yolanda Faust RN Position: S RN Member Role: Primary Care Nurse Name: Max Bacon MD Position: [facility] Physician - Primary Care Member Role: PCP Address: Address: [address] [place] [address] Adult & Pediatric [address] Name: Yasmin Paige RN Position: S [...] Persons Name: CHINA MARTÍNEZ Address: home [address] [place] [address] Name: VIVEK PATEL Address: home [address] [place] [address]
--- OUTSIDE RECORDS SUMMARY | 2024-08-12 15:11 | XMS_ITS | Continuity of Care Document ---
Author Organization [facility] Address [address] [place] [id number]- Care Team Providers Care Medical Collections Specialist Name Role Phone Arleen LIRA, Max Christine Primary Care Physician Encounter [facility] Date(s): 12/01/21 - 12/31/[address] [address]- Attending Physician: Kailyn Montoya Admitting Physician: Kailyn [...] Note: per paper chart 2Result Comment: [08/15/2018] [id number] 3Result Comment: [09/23/2017] [id number] 4Admin Note: FLUZONE [id number] 5Admin Note: sanofi pasteur Vaccine information statement [...] pack/packet, 0 Refills, Maintenance, 08/31/21 16:42:00 EDT, [facility]/pharmacy #[id number], Partial fill upon patient request if the prescription is for a schedule II opioid drug., 153, cm, 06/12/21 12:03:00... Start Date: 08/31/21 Status: Ordered nicotine 14 mg/24 hr transdermal film, extended release 1 patch, Topically, Daily, # 28 patch, 1 Refills, Acute, 05/16/20 17:42:00 EDT, [facility] STORE [id number], 28, APPLY 1 PATCH TOPICALLY DAILY, 154.94, [...] 08/31/21 16:42:00 EDT, Route to Pharmacy Electronically, [facility]/pharmacy #[id number], Partial fill upon patient request if the [...]
== END 2024-08-12 15:08 | disposition home or self-care (01) ==
LOC: HO.HOP 15:06
PROVIDERS: PCP Internal Medicine; Visit Provider Psychiatry & Neurology Psychiatry
DX: F33.2 Major depressive disorder, recurrent severe without psychotic features (principal); F41.1 Generalized anxiety disorder
CPT/HCPCS: 99214

== ENCOUNTER → 2024-08-12 15:06 | Outpatient (BNVA) | payer MEDICARE, MEDICAID, SELFPAY | PROVIDERS: PCP Internal Medicine; Visit Provider Psychiatry & Neurology Psychiatry ==

== ENCOUNTER 2024-09-17 13:41 | Outpatient (AMB) | payer MEDICARE, MEDICAID, SELFPAY ==
--- NOTE | 2024-09-17 13:42 | A.OFFVIS_ITS ---
Vital Signs 09/17/24 13:50 Height 5 ft Weight 130 lb BMI 25.4 BP 135/79 Blood Pressure Location Rt brachial Position Sitting Pulse 68 Intake Visit Reasons: Hemorrhoids Intake Note: This patient presents for hemorrhoid assessment. Pt c/o: reports constipation, straining with bowel movements, reports rectal bleeding when has diarrhea. Work Adjustment Instructor Required: No Accompanied by: Self / Same As Patient Allergies vancomycin [Vancomycin] Allergy (Intermediate, Verified 09/17/24 13:52) RASH Medication List - Last Reconciled 09/17/24 by Reuben Kilpatrick MD bupropion HCl SR 100 mg PO DAILY cariprazine (Vraylar) 1.5 mg PO DAILY 30 days celecoxib mg PO BID clonazepam 0.5 mg (1/2 x 1 mg) PO BID PRN gabapentin orally; 1 am 1 aft 2-3 bedtime ibuprofen 800 mg PO Q8H lamotrigine 200 mg PO BEDTIME nicotine 1 patch topical DAILY ondansetron 4 mg PO Q6-8H PRN ropinirole 0.5 mg PO TID sertraline 150 mg (1.5 x 100 mg) PO .daily 90 days sodium,potassium,mag sulfates 17.5-3.13-1.6 gram mL PO HPI HPI Hemorrhoids: Details: [age] year old female referred for hemorrhoid issues . She describes discomfort in the anal area which she says is ?pressure?. She says that she would notice what she describes as ?hemorrhoids? coming out when she has a bowel movement. Once in a while she has to push this back in. She denies any bleeding. She denies pain. She also has significant fecal incontinence. She says that she has had this for over 4 years. She says she wears panty liners now because of frequent leakage. She says she does not even know whenever she has soilage of stool. She describes having 2 vaginal deliveries when she was in her 20s. COUNT INCLUDES THE [facility] Medical History (Updated 09/17/24 @ 14:05 by Reuben Kilpatrick MD) Rectal mucosa prolapse Major depression, recurrent, chronic COVID-19 Sleep apnea Emphysema lung Arthritis Anxiety Depression Surgical History H/O shoulder surgery Previous back surgery History of Knee joint replacement status H/O: myomectomy History of bladder surgery H/O LEEP Tubal ligation status Family History Sister Breast CA Mother Graves disease Father Alcoholism Cirrhosis of liver Social History Household Members: Significant Other Housing: House Alcohol intake: current Patient Tobacco Use Status: Former Tobacco user Tobacco use type: Cigarette service: No Current occupational status: retired Sexual orientation: Straight/Heterosexual Gender identity: Female Female Reproductive History Menstrual Age of Menarche: 13 Review of Systems Const Denies chills and Denies fever(s) Card Denies chest pain, Denies dyspnea and Denies dyspnea on exertion Resp Denies cough, Denies dyspnea and Denies dyspnea on exertion GI Denies hematochezia and Denies change in bowel habits Denies hematuria Musc Reports back pain, Reports arthralgias and Denies limited range of motion Neuro Denies focal weakness and Denies convulsions Psych Denies depression and Denies mood swings Physical Exam Const Other: Walks with a limp General: comfortable and no acute distress Orientation/consciousness: patient oriented x3 Neck Neck: Yes no lymphadenopathy Resp Auscultation: clear to auscultation bilaterally Cardio Rhythm: regular rhythm GI Other: Rectal exam shows small external hemorrhoids, no obvious prolapse Palpation (GI): Soft to palpation, nontender and no guarding Neuro General: patient oriented x3 Office Procedures Anoscopy She was in jasper-knife position. The anoscope was gently inserted. A full examination of the anal canal was done. She has a very lax sphincter tone. She has some small hemorrhoids but there seems to be at least some mucosal prolapse. I do not see any full the prolapse at this time. She does have some squeeze pressure. There were no lesions seen. [id number] Assessment & Plan Assessment & Plan (1) Rectal mucosa prolapse: Code(s): K62.3 - Rectal prolapse Category: Medical Plan: She does have internal external hemorrhoids with likely mucosal prolapse. She has some incontinence and leakage of stools. She has very poor sphincter tone although she has some squeeze pressure. She says she does not have any pain but describes more of discomfort. She does want any surgical intervention. I explained to her that I would increase her her supplementation with Metamucil to twice a day. I had a long discussion with her about avoiding staying seated in the toilet for long periods of time and just going to the toilet only when she is ready to have a bowel movement I told her to come back to the office to be re-evaluated down the line. She is comfortable with the plan. Coding Level of Care Code New Pt Level 3 (78888) Diagnoses Rectal mucosa prolapse K62.3 CPT Codes Details - CPT: 88079-Isdydxvw ([id number])
[2024-09-17 13:50] VITALS: BP 135/79; PULSE 68; BMI 25.4
== END 2024-09-17 14:03 | disposition home or self-care (01) ==
LOC: HO.HGS 13:42
PROVIDERS: PCP Internal Medicine; Visit Provider Surgery
DX: K62.3 Rectal prolapse (principal)
CPT/HCPCS: 46600; 99203

== ENCOUNTER → 2024-09-17 13:41 | Outpatient (BNVA) | payer MEDICARE, MEDICAID, SELFPAY | PROVIDERS: PCP Internal Medicine; Visit Provider Surgery | DX: K62.3 Rectal prolapse (principal) | CPT/HCPCS: 46600; 99202 ==

== ENCOUNTER 2024-11-26 15:52 | Outpatient (AMB) | payer MEDICARE, MEDICAID, SELFPAY ==
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
--- OUTSIDE RECORDS SUMMARY | 2024-11-26 17:04 | XMS_ITS | Continuity of Care Document ---
Author Organization [facility] Address [address] [place] [id number]- Care Team Providers Care House Painting Instructor Name Role Phone Max Bacon MD Primary Care Physician Encounter [facility] Date(s): 09/23/24 - 11/15/[address] [address]- Attending Physician: Max Bacon MD Admitting Physician: Max Bacon MD Referring Physician: Max Bacon MD Encounter Type: Pre-Outpt Allergies, Adverse Reactions, Alerts Substance Criticality Severity Reaction Reaction Severity Status vancomycin allergic only i f given IV rash Active Immunizations Given and Recorded [...] Note: per paper chart 3Result Comment: [08/15/2018] [id number] 4Result Comment: [09/23/2017] [id number] 5Admin Note: FLUZONE [id number] 6Admin Note: sanofi pasteur Vaccine information statement (05/29/06) given to patient. 7Admin Note: pt declined, unavailable 8Admin Note: Declined Medications aspirin 81 mg oral capsule 1 capsule = 81 mg, By Mouth, 2 times a day, PRN as needed for pain, not to exceed 12 capsules/day, # 30 capsule, 0 Refills, Maintenance, 03/26/24 11:50:00 AM EDT, Capsule, [id number], Partial fill upon patient request if the prescription is for a schedule II opioid drug., 152.4, cm, 03/26/24 7:43:00 EDT, Height, 59.1, kg, 03/25/24 16:39:00 EDT, Dry Weight Start Date: 03/26/24 Stop Date: 04/09/24 Status: Ordered Quantity: 30.0 Unit: capsule Repeat number: 1 buPROPion 100 mg/12 hours (SR) oral tablet, extended release 1 tablet = 100 mg, By Mouth, Daily in AM, Maintenance, 06/20/22 6:27:00 PM EDT, Partial fill upon patient request if the prescription is for a schedule II opioid drug. Start Date: 06/20/22 Status: Ordered Repeat number: 1 cholecalciferol 1000 intl units oral capsule 1 capsule = 25 mcg, By Mouth, Daily, Maintenance, 06/20/22 6:33:00 PM EDT, Capsule, Partial fill uponpatient request if the prescription is for a schedule II opioid drug. Start Date: 06/20/22 Status: Ordered Repeat number: 1 clonazePAM 1 mg oral tablet 1 tablet = 1 mg, By Mouth, Daily in AM, Maintenance, 06/20/22 6:28:00 PM EDT, Partial fill upon patient request if the prescription is for a schedule II opioid drug. Start Date: 06/20/22 Status: Ordered Repeat number: 1 docusate sodium 100 mg oral tablet 1 tablet = 100 mg, By Mouth, 2 times a day, PRN for constipation, # 100 tablet, 0 Refills, Maintenance, 03/26/24 11:47:00 AM EDT, Tablet, [facility]/pharmacy #[id number], Partial fill upon patient request if the prescription is for a schedule II opioid drug., 152.4, cm, 03/26/24 7:43:00 EDT, Height, 59.1, kg, 03/25/24 16:39:00 EDT, Dry Weight Start Date: 03/26/24 Status: Ordered Quantity: 100.0 Unit: tablet Repeat number: 1 gabapentin 100 mg oral capsule 100 mg, 1, capsule, TAKE 1 CAPSULE BY MOUTH IN THE AM, 1 IN THE AFTERNOON, AND 2-3 BEDTIME Start Date: 03/04/24 Status: Ordered Repeat number: 1 lamotrigine 200 mg oral tablet 1 tablet = 200 mg, By Mouth, Daily at bedtime, 0 Refills, Maintenance, 01/07/15 2:40:08 PM EST Start Date: 01/07/15 Status: Ordered Repeat number: 1 Multivitamin 1 tablet, By Mouth, Daily, Maintenance, 06/20/22 6:33:00 PM EDT, Partial fill upon patient request ifthe prescription is for a schedule II opioid drug. Start Date: 06/20/22 Status: Ordered Repeat number: 1 omeprazole 20 mg oral enteric coated capsule See Instructions, TAKE 1 CAPSULE BY MOUTH TWICE A DAY, # 180 capsule, 3 Refills, Maintenance, 07/03/24 2:27:00 PM EDT, [id number], 152.4, cm, 03/26/24 13:24:00 EDT, Height, 59.1, kg, 03/25/24 16:39:00 EDT, Dry Weight Start Date: 07/03/24 Status: Ordered Quantity: 180.0 Unit: capsule Repeat number: 4 rOPINIRole 0.5 mg oral tablet 1 tablet = 0.5 mg, By Mouth, Daily at bedtime, Maintenance, 06/20/22 6:32:00 PM EDT, Tablet, Partial fill upon patient request if the prescription is for a schedule II opioid drug. Start Date: 06/20/22 Status: Ordered Repeat number: 1 sertraline 100 mg oral tablet 1.5 tablet = 150 mg, By Mouth, Daily in AM, 0 Refills, Maintenance, 07/01/18 11:09:34 AM EDT Start Date: 07/01/18 Status: Ordered Repeat number: 1 Problem List Condition Confirmation Course Effective Dates [...] at age: 59; entered on: 03/21/18 Sex Sex Representation Female (finding) Patient Care team information Care Team Personnel Name: Nika Davalos RN Position: [facility] RN Member Role: Primary Care Nurse Name: Kathryn Castro RN Position: [facility] RN Member Role: Primary Care Nurse Name: Yolanda Faust RN Position: S RN Member Role: Primary Care Nurse Name: Max Bacon MD Position: [facility] Physician - Primary Care Member Role: PCP Address: [address] [place] [address] [facility] [place] [address]- Telecom: Name: Yasmin Paige RN Position: S RN [...] Care Team Related Persons Name: CHINA MARTÍNEZ Name: VIVEK PATEL Insurance Providers Guarantor name: MAGALI MARTÍNEZ Health Plan Information #: 2 Payer: [facility] [employer] Member Number: [id number] Policy Number: NA Group Number: NA Health Plan Information #: 1 Payer: MEDICARE PART B OUTPT Member Number: [id number] Policy Number: NA Group Number: NA
== END 2024-11-26 16:23 | disposition home or self-care (01) ==
LOC: HO.HOP 15:52
PROVIDERS: PCP Internal Medicine; Visit Provider Psychiatry & Neurology Psychiatry
DX: F33.2 Major depressive disorder, recurrent severe without psychotic features (principal); F41.1 Generalized anxiety disorder
CPT/HCPCS: 90833; 99213

== ENCOUNTER → 2024-11-26 15:52 | Outpatient (BNVA) | payer MEDICARE, MEDICAID, SELFPAY | PROVIDERS: PCP Internal Medicine; Visit Provider Psychiatry & Neurology Psychiatry | DX: F33.2 Major depressive disorder, recurrent severe without psychotic features (principal); F41.1 Generalized anxiety disorder | CPT/HCPCS: 99212 ==

== ENCOUNTER 2025-01-12 11:24 | Outpatient (REF) | payer MEDICARE, MEDICAID, SELFPAY ==
[2025-01-12 13:40] LABS: Erythrocyte Sedimentation Rate 21 MM/HR (0-20)
[2025-01-12 13:42] LABS: Alanine Aminotransferase 18 U/L (0-31); Albumin Level 3.9 g/dL (3.5-5.0); Alkaline Phosphatase 113 U/L (39-117); Anion Gap 10 (12-20); Aspartate Amino Transferase 28 U/L (5-31); Bilirubin Total 0.3 mg/dL (0.0-1.0); Blood Urea Nitrogen 15 mg/dL (9-16); Calcium 9.3 mg/dL (8.4-10.2); Carbon Dioxide 30 mmol/L (22-29); Chloride 104 mmol/L (96-108); Estimated Glomerular Filt Rate > 60; Glucose Random 82 mg/dL (60-115); Sodium 140 mmol/L (135-145); Total Protein 7.8 g/dL (6.5-8.0)
[2025-01-12 13:59] LABS: TSH reflex Free T4 0.92 uIU/mL (0.32-4.0)
[2025-01-12 14:05] LABS: Folate 9.4 ng/mL (> or = 4.0); Vitamin B12 429 pg/mL (200-900)
[2025-01-13 10:38] LABS: CRP High Sensitivity 6.3 mg/L
[2025-01-13 18:03] LABS: Lyme Blot 3.08 index
[2025-01-14 10:53] LABS: Lyme Abs Screen POSITIVE
[2025-01-14 21:28] LABS: 18 KD (IgG) Band REACTIVE; 23 KD (IgG) Band NON-REACTIVE; 23 KD (IgM) Band REACTIVE; 28 KD (IgG) Band NON-REACTIVE; 30 KD (IgG) Band NON-REACTIVE; 39 KD (IgM) Band NON-REACTIVE; 39KD (IgG) Band REACTIVE; 41 KD (IgM) Band REACTIVE; 41KD (IgG) Band REACTIVE; 45 KD (IgG) Band NON-REACTIVE; 58 KD (IgG) Band REACTIVE; 66 KD (IgG) Band NON-REACTIVE; 93 KD (IgG) Band NON-REACTIVE; Lyme IgG Blot Interp NEGATIVE (NEGATIVE); Lyme IgM Blot Interp POSITIVE (NEGATIVE)
== END 2025-01-12 11:25 | disposition home or self-care (01) ==
LOC: HO.LAB 11:24
PROVIDERS: PCP Internal Medicine; Visit Provider Psychiatry & Neurology Psychiatry
DX: F41.1 Generalized anxiety disorder (principal); F33.9 Major depressive disorder, recurrent, unspecified; R41.3 Other amnesia; F41.9 Anxiety disorder, unspecified
CPT/HCPCS: 36415; 80053; 80175; 82607; 82746; 84443; 85652; 86141; 86617; 86618

== ENCOUNTER 2025-02-23 10:34 | Outpatient (AMB) | payer MEDICARE, MEDICAID, SELFPAY ==
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
== END 2025-02-23 12:20 | disposition home or self-care (01) ==
LOC: HO.HOP 10:34
PROVIDERS: PCP Internal Medicine; Visit Provider Psychiatry & Neurology Psychiatry
DX: F41.1 Generalized anxiety disorder (principal); F33.9 Major depressive disorder, recurrent, unspecified
CPT/HCPCS: 90833; 99213

== ENCOUNTER → 2025-02-23 10:34 | Outpatient (BNVA) | payer MEDICARE, MEDICAID, SELFPAY | PROVIDERS: PCP Internal Medicine; Visit Provider Psychiatry & Neurology Psychiatry | DX: F33.9 Major depressive disorder, recurrent, unspecified (principal); F41.1 Generalized anxiety disorder; Z71.89 Other specified counseling | CPT/HCPCS: 99212 ==

== ENCOUNTER → 2025-02-26 10:30 | Outpatient (BNV) | payer MEDICARE, MEDICAID, SELFPAY | PROVIDERS: Visit Provider Psychiatry & Neurology Psychiatry | DX: F33.9 Major depressive disorder, recurrent, unspecified (principal); F41.1 Generalized anxiety disorder | CPT/HCPCS: 90792; 99214 ==

== ENCOUNTER 2025-03-15 13:00 | Outpatient (RCR) | payer MEDICARE, MEDICAID, SELFPAY ==
[2025-02-25 13:09] VITALS: BMI 25.5
[2025-02-25 13:10] VITALS: BP 104/58; PULSE 68; TEMP 37.3
--- NOTE | 2025-02-25 14:56 | HO.IOP ---
Patient's case was open and review in teams.
--- NOTE | 2025-02-26 07:45 | PC.ADMIT ---
Patient is a 69 year old woman who lives with her partner Jeff who was referred to [facility] by her psychiatrist Dr. Noyola d/t increased sxs of depression and anxiety. Per integrative assessment patient was having SI with a plan to overdose however did not follow through as her kids are her protective factor. Supports include, Dr. Noyola, partner Jeff, some friends who are very supportive. Stated she is going out to lunch with friends. Patient currently is alert and oriented x4. She is calm and cooperative. She presented with anxious mood and affect. She denied SI, no HI. Medications were reconciled with patient, medical record, pharmacy, and Dr. Noyola. Patient reports taking medications as prescribed.
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
--- NOTE | 2025-03-04 15:23 | HO.PHP ---
Clients case was opened and reviewed in teams today.
--- NOTE | 2025-03-05 12:00 | P.PNPSP_ITS ---
Subjective Subjective Date of Service: 03/05/25 Reason For Visit: depression Interim History: Patient reports this week has ?been emotional?. Says when she gets home she feels irritable frustrated. Some of this just due to exhaustion from participating in treatment. Complains that her energy is low and just wanting to sleep much of the day. She says she was not always like this, her baseline energy is usually a little better?. She reports her mood as ?I am very emotional? describes more emotional incontinence easily cries or gets sometimes irritated although overall anger not too problematic and feels like her emotions change quickly moment to moment. ?when I get in a mood slight bipolar swing and then it just passes?. She relays feeling she needs more time in the program in his hoping for an extension she does not feel ready for discharge she also complains that her mood is ?not good, getting worse? 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 She is oriented x4 she is tolerating her medication denies any adverse effects despite being on Wellbutrin 100 twice a day Zoloft 150 as well as lamotrigine 200 we discussed starting on Latuda to see if she needs a bit more mood stabilization specifically targeting depression also discussed starting memantine given it some of these issues appear to be cognitive in nature which can compound her frustration and stress tolerance as well as being inadequately able to self-regulate. Mental Status Exam Mental Status Exam Narrative: Alert, oriented, in no acute distress. Diminutive, raspy voice. No PMA or NVR. Eye contact maintained. Mood anxious, labile, affect blunted irritable, mood congruent. Speech normal. Thought process linear, coherent. Thought content related to stressors, denies any hopelessness or SI. Denies any aggressive ideation or HI. No paranoia or delusional content elicited. No evidence of psychosis. Insight and judgment - fair but adequate. Diagnostics Vital Signs (24Hr): BMI result Body Mass Index 25.5 Assessment & Plan Assessment & Plan (1) Major depression, recurrent, chronic: Status: Acute Code(s): F33.9 - Major depressive disorder, recurrent, unspecified (2) Generalized anxiety disorder: Status: Acute Code(s): F41.1 - Generalized anxiety disorder Plan Extend PHP start lurasidone 20 mg qhs w meal will then start memantine ER 7 mg qhs may consider further titration of WB vs augmentation with small dose modafinil 50-100 mg qam continue other regular medications? Routine lab work ordered as indicated EKG, routine for baseline QTc for medication considerations as indicated UDS as indicated VS reviewed: afebrile, BP 104/58;?68 Continue to monitor Patient educated on: diagnosis and medication risk/benefits Informed Consent: understands Reason for contiued partial hosp. stay Substantial Risk for: inability to function and med/psych decompensation Certification I certify that partial hospital treatment is medically necessary due to the symptoms and problems resulting from the patient's mental illness and the failure to treat the patient at the partial hospital level of care would likely result in the patient requiring inpatient psychiatric care which could not be prevented at a less intensive level of care. Total time managing care of this patient today __30__ minutes. Discharge Plan Discharge Attending provider: Katina Clay Medications: New lurasidone 20 mg tablet 20 mg PO QPM Qty: 14 0RF Rx Instructions: must administer with food (at least 350 calories) memantine 7 mg capsule,sprinkle,ER 24hr 7 mg PO DAILY Qty: 14 0RF Changed bupropion HCl 100 mg tablet sustained-release 12 hr 100 mg PO BID Qty: 60 0RF Rx Instructions: in AM and afternoon olanzapine 2.5 mg tablet 1.25 - 2.5 mg PO BEDTIME PRN (Reason: sleep) Qty: 30 0RF No Action sertraline 100 mg tablet 150 mg PO .daily 90 Days Qty: 135 1RF ropinirole 0.5 mg tablet 0.5 mg PO TID Qty: 270 1RF lamotrigine 200 mg tablet 200 mg PO DIRECTED Qty: 90 1RF Rx Instructions: 1/2 am 1 bedtime gabapentin 100 mg capsule 300 mg PO BID Qty: 180 2RF Rx Instructions: caution may be sedating clonazepam 1 mg tablet 0.5 mg PO BID PRN (Reason: anxiety) Qty: 30 2RF Stand Alone Forms: Patient Portal Discharge page Print Language: Slovenian
== END 2025-03-15 23:59 | disposition home or self-care (01) ==
LOC: HO.PHPA 13:00
PROVIDERS: Visit Provider Psychiatry & Neurology Psychiatry
DX: F33.9 Major depressive disorder, recurrent, unspecified (principal); F41.1 Generalized anxiety disorder; Z79.899 Other long term (current) drug therapy
CPT/HCPCS: 90791; 90853

== ENCOUNTER 2025-04-20 11:10 | Outpatient (AMB) | payer MEDICARE, MEDICAID, SELFPAY ==
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
--- OUTSIDE RECORDS SUMMARY | 2025-04-20 12:51 | XMS_ITS | Continuity of Care Document ---
Author Organization [facility] Address [address] [place] [address]- Care Team Providers Care Counsel Name Role Phone Arleen LIRA, Max Christine Primary Care Physician Encounter [facility] Date(s): 03/19/25 - 04/18/25 [facility] [address] [place], [place] [address] Encounter Type: Triage Allergies, Adverse Reactions, Alerts Substance Criticality Severity [...] Note: per paper chart 3Result Comment: [08/15/2018] [id number] 4Result Comment: [09/23/2017] [id number] 5Admin Note: FLUZONE [id number] 6Admin Note: san[employer]i [employer]ur Vaccine information statement (05/29/06) given to patient. 7Admin Note: pt declined, unavailable 8Admin Note: Declined Medications acetaminophen-codeine 300 mg-30 mg oral tablet 1, tablet, By Mouth, 3 times a day, PRN, not to exceed 3000 mg acetaminophen per day for 28 days, #84 tablet, Refills 0, Tot. Refills 0, Acute, for pain, 05/28/25 3:33:00 PM EDT, 04/30/25 3:33:00 PM EDT, Route to Pharmacy Electronically, [facility]/pharmacy #[id number] Tablet, Partial fill upon patient request if the prescription is for a schedule II opioid drug., 152.4, cm, 03/18/25 14:41:00 EDT, Height, 54.9, kg, 03/18/25 13:54:00 EDT, Dry Weight Start Date: 04/30/25 Stop Date: 05/28/25 Status: Ordered Quantity: 84.0 Unit: tablet Repeat number: 1 acetaminophen-codeine 300 mg-30 mg oral tablet 1, tablet, By Mouth, 3 times a day, PRN, not to exceed 3000 mg acetaminophen per day for 28 days, #84 tablet, Refills 0, Tot. Refills 0, Acute, for pain, 04/30/25 3:33:00 PM EDT, 04/02/25 3:33:00 PM EDT, Route to Pharmacy Electronically, [facility]/pharmacy #[id number] Tablet, Partial fill upon patient request if the prescription is for a schedule II opioid drug., 152.4, cm, 03/18/25 14:41:00 EDT, Height, 54.9, kg, 03/18/25 13:54:00 EDT, Dry Weight Start Date: 04/02/25 Stop Date: 04/30/25 Status: Ordered Quantity: 84.0 Unit: tablet Repeat number: 1 buPROPion 100 mg/12 hours (SR) oral tablet, extended release 1 tablet = 100 mg, By Mouth, Daily in AM, Maintenance, 06/20/22 6:27:00 PM EDT, Partial fill upon patient request if the prescription is for a schedule II opioid drug. Start Date: 06/20/22 Status: Ordered Repeat number: 1 calcium (as carbonate)-vitamin D 600 mg-62.5 mcg (2500 intl units) oral capsule TAKE 1 CAPSULE TWICE A DAY BY MOUTH FOR 42 DAYS. Start Date: 04/04/25 Status: Ordered Repeat number: 1 clonazePAM 1 mg oral tablet 1 tablet = 1 mg, By Mouth, Daily in AM, Maintenance, 06/20/22 6:28:00 PM EDT, Partial fill upon patient request if the prescription is for a schedule II opioid drug. Start Date: 06/20/22 Status: Ordered Repeat number: 1 gabapentin 100 mg oral capsule 100 mg, 1, capsule, TAKE 1 CAPSULE BY MOUTH IN THE AM, 1 IN THE AFTERNOON, AND 2-3 BEDTIME Start Date: 03/04/24 Status: Ordered Repeat number: 1 lamotrigine 200 mg oral tablet See Instructions, 300mgs daily, 0 Refills, Maintenance, 01/07/15 2:40:08 PM EST Start Date: 01/07/15 Status: Ordered Repeat number: 1 lurasidone 20 mg oral tablet 0 Refills, Maintenance, 04/04/25 9:36:00 PM EDT, Partial fill upon patient request if the prescription is for a schedule II opioid drug. Start Date: 04/04/25 Status: Ordered Repeat number: 1 memantine 7 mg oral capsule, extended release 0 Refills, Maintenance, 04/04/25 9:36:00 PM EDT, Partial fill upon patient request if the prescription is for a schedule II opioid drug. Start Date: 04/04/25 Status: Ordered Repeat number: 1 omeprazole 20 mg oral enteric coated capsule See Instructions, TAKE 1 CAPSULE BY MOUTH TWICE A DAY, # 180 capsule, 3 Refills, Maintenance, 07/03/24 2:27:00 PM EDT, [id number], 152.4, cm, 03/26/24 13:24:00 EDT, Height, 59.1, kg, 03/25/24 16:39:00 EDT, Dry Weight Start Date: 07/03/24 Status: Ordered Quantity: 180.0 Unit: capsule Repeat number: 4 rOPINIRole 0.5 mg oral tablet 1 tablet = 0.5 mg, By Mouth, 3 times a day, Maintenance, 06/20/22 6:32:00 PM EDT, Tablet, Partial fill upon patient request if the prescription is for a schedule II opioid drug. Start Date: 06/20/22 Status: Ordered Repeat number: 1 sertraline 100 mg oral tablet 1 tablet = 100 mg, By Mouth, Daily in AM, 0 [...] Team Personnel Name: Nika Davalos RN Position: [facility] RN Member Role: Primary Care Nurse Name: Kathryn Castro RN Position: [facility] SN RN Member Role: Primary Care Nurse Name: Yolanda Faust RN Position: S RN Member Role: Primary Care Nurse Name: Max Bacon MD Position: [facility] Physician - Primary Care Member Role: PCP Address: [address] [place] [address] [facility] [address] Telecom: Name: Yasmin Paige RN Position: [facility] RN Member Role: Primary Care Nurse Name: Raheem Sam RN Position: [facility] RN Member Role: Primary Care Nurse Name: Iris Harrington RN Position: [facility] RN Member Role: Primary Care Nurse Name: Ainsley Rivers RN Position: [facility] RN Member Role: Primary Care Nurse Name: Tish Blank RN Position: [facility] RN Member Role: Primary Care Nurse Name: Eladio Bettencourt RN Position: [facility] RN Member Role: Primary Care Nurse Care Team Related Persons Name: CHINA MARTÍNEZ Name: VIVEK PATEL Insurance Providers Guarantor name: MAGALI MARTÍNEZ Health Plan Information #: 1 Payer: MEDICARE PART B OUTPT Member Number: NA Policy Number: NA Group Number: NA Health Plan Information #: 2 Payer: [facility] Member Number: NA Policy Number: NA Group Number: NA
== END 2025-04-20 11:34 | disposition home or self-care (01) ==
LOC: HO.HOP 11:10
PROVIDERS: PCP Internal Medicine; Visit Provider Psychiatry & Neurology Psychiatry
DX: F33.9 Major depressive disorder, recurrent, unspecified (principal)
CPT/HCPCS: 99214

== ENCOUNTER → 2025-04-20 11:10 | Outpatient (BNVA) | payer MEDICARE, MEDICAID, SELFPAY | PROVIDERS: PCP Internal Medicine; Visit Provider Psychiatry & Neurology Psychiatry | DX: F33.9 Major depressive disorder, recurrent, unspecified (principal) | CPT/HCPCS: 99212 ==

== ENCOUNTER 2025-06-16 10:41 | Outpatient (AMB) | payer MEDICARE, MEDICAID, SELFPAY ==
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
== END 2025-06-16 11:18 | disposition home or self-care (01) ==
LOC: HO.HOP 10:41
PROVIDERS: PCP Internal Medicine; Visit Provider Psychiatry & Neurology Psychiatry
DX: F33.9 Major depressive disorder, recurrent, unspecified (principal); F41.1 Generalized anxiety disorder
CPT/HCPCS: 90833; 99213

== ENCOUNTER → 2025-06-16 10:41 | Outpatient (BNVA) | payer MEDICARE, MEDICAID, SELFPAY | PROVIDERS: PCP Internal Medicine; Visit Provider Psychiatry & Neurology Psychiatry | DX: F33.9 Major depressive disorder, recurrent, unspecified (principal); F41.1 Generalized anxiety disorder | CPT/HCPCS: 99212 ==

== ENCOUNTER 2025-08-03 10:56 | Outpatient (AMB) | payer MEDICARE, MEDICAID, SELFPAY ==
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
--- OUTSIDE RECORDS SUMMARY | 2025-08-03 14:44 | XMS_ITS | Clinical Summary ---
Author Organization [facility] Address [address] [place] [id number] Phone Care Team Providers Care Etymology Professor Name Role Phone Max Bacon MD Primary Care Provider Allergies Active Allergy Reactions Criticality Noted Date Comments Vancomycin Rash Low 07/17/2023 Other reaction(s): allergic only if given IV Medications multivit with minerals/lutein (MULTIVITAMIN 50 PLUS ORAL) Take by mouth. 06/20/2022 Active acetaminophen/d iphenhydramine (TYLENOL PM EXTRA STRENGTH ORAL) Take by mouth. 05/22/2023 Active buPROPion (WELLBUTRIN SR) 100 MG SR 12 hr tablet Take 1 tablet by mouth every morning. 07/05/2023 Active cholecalciferol , vitamin D3, 25 mcg (1,000 unit) capsule Take 25 mcg by mouth daily. 06/20/2022 Active clonazePAM (KLONOPIN) 1 MG tablet Take 1 mg by mouth daily as needed. 06/20/2022 Active gabapentin (NEURONTIN) 100 MG capsule Take 100 mg by mouth. 100mg qam, 100mg afternoon, 200-300mg qhs 06/14/2023 Active lamoTRIgine (LAMICTAL) 200 MG IMMEDIATE release tablet Take 200 mg by mouth nightly at bedtime. at bedtime. 05/30/2023 Active rOPINIRole (REQUIP) 0.5 MG tablet Take 0.5 mg by mouth 3 (three) times a day. 07/10/2023 Active sertraline (ZOLOFT) 100 MG tablet Take 150 mg by mouth daily. 04/30/2023 Active Active Problems Problem Noted Date Diagnosed Date Flat foot 07/23/2023 Social History Tobacco Use Types Packs/Day Years Used Date Smoking Tobacco: Former Cigarettes Smokeless Tobacco: Never Tobacco Cessation:Counseling Given: Not Answered Alcohol Use Standard Drinks/Week Comments Yes 0 (1 standard drink = 0.6 oz pur e alcohol) Education Answer Date Recorded Are you interested in more education? Not on deloris e 07/12/2023 Are you concerned about learning? Not on file 07/12/2023 No 07/12/2023 No 07/12/2023 Digital Access Answer Date Recorded No 07/12/2023 No 07/12/2023 Reliable internet access at home? Not on file 07/12/2023 Device with a working camera? Not on file Comments Unknown Sex and Gender Information Value Date Recorded Sex Assigned at Not on file Legal Sex Female 3:04 PM EDT Gender Identity Not on file Sexual Orientation Not on file Last Filed Vital Signs Vital Sign Reading Time Taken Comments Blood Pressure - - Pulse - - Temperature - - Respiratory Rate - - Oxygen Saturation - - Inhaled Oxygen Concentration - - Weight 55.8 kg (123 lb) 07/17/2023 3:48 PM EDT Height 152.4 cm (5') 07/17/2023 3:48 PM EDT Body Mass Index 24.02 07/17/2023 3:48 PM EDT Plan of Treatment Health Maintenance Due Date Last Done Comments Adult Td,Tdap Booster 1955 LIPID PANEL 1955 DEPRESSION SCREENING 1967 SMOKING Hx and SMOKELESS TOB ACCO SCREENING 1968 HEPATITIS C SCREENING 1973 MAMMOGRAM 1995 COLOGUARD 2000 COLONOSCOPY 2000 COLORECTAL CANCER SCREENING 2000 FIT TEST 2000 FOBT 2000 SIGMOIDOSCOPY 2000 VIRTUAL COLONOSCOPY 2000 PNEUMOCOCCAL VACCINES (50+ y ears) (1 of 1 - PCV) 2005 ZOSTER VACCINES (1 of 2) 2005 OSTEOPOROSIS SCREENING INITI AL (ONE-TIME) 2020 INFLUENZA VACCINE (#1) 2025 COVID-19 VACCINE (1 - 2023-2 5 season) 2025 RSV VACCINE (1 - 1-dose 75+ series) 2030 HEPATITIS A VACCINES Aged Out No long er eligible based on patient's age to complete this topic HIB VACCINES Aged Out No longer eligi ble based on patient's age to complete this topic MENINGOCOCCAL VACCINES (ACWY) Aged Out No longer eligible based on patient's age to complete this topic MENINGOCOCCAL VACCINES (B) Aged Out N o longer eligible based on patient's age to complete this topic Medical Devices Not on file Insurance MEDICARE PART A & B [facility] [id number] MEDICARE PART A & B [facility] MEDICARE PART A & B [facility] MEDICARE PART A & B [facility] MEDICARE PART A & [place] [id number] MEDICARE PART A & B [facility] Care Teams Etymology Professor Relationship Specialty Start Date End Date Max Bacon MD PCP - General Internal Medicine 06/26/23 Additional Source Comments The information contained in this document represents components of the legal health record. It is not the complete legal health record.[facility]
== END 2025-08-03 14:53 | disposition home or self-care (01) ==
LOC: HO.HOP 10:56
PROVIDERS: PCP Internal Medicine; Visit Provider Psychiatry & Neurology Psychiatry
DX: F33.2 Major depressive disorder, recurrent severe without psychotic features (principal); F41.1 Generalized anxiety disorder
CPT/HCPCS: 90833; 99213

== ENCOUNTER → 2025-08-03 10:56 | Outpatient (BNVA) | payer MEDICARE, MEDICAID, SELFPAY | PROVIDERS: PCP Internal Medicine; Visit Provider Psychiatry & Neurology Psychiatry | DX: F33.2 Major depressive disorder, recurrent severe without psychotic features (principal); F41.1 Generalized anxiety disorder | CPT/HCPCS: 99212 ==

== ENCOUNTER 2025-09-07 14:29 | Outpatient (AMB) | payer MEDICARE, MEDICAID, SELFPAY ==
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
--- OUTSIDE RECORDS SUMMARY | 2025-09-07 19:33 | XMS_ITS | Clinical Summary ---
Author Organization [facility] Address [address] [place] [id number] Phone Care Team Providers Care Screen Making Technician Name Role Phone Max Bacon MD Primary [...] 2020 INFLUENZA VACCINE (#1) 2025 COVID-19 VACCINE ( - 2024-2 6 season) 2025 RSV VACCINE (1 - 1-dose [...] file Insurance MEDICARE PART A & [place] [facility] [place] [id number] MEDICARE PART A & [facility]IC[facility] & [facility] [place] [facility] [place] [id number] MEDICARE PART A & B [facility] Care Teams Screen Making Technician Relationship Specialty Start Date End Date Max Bacon MD PCP - General Internal Medicine 06/26/23 Additional Source Comments The information contained in this document represents components of the legal health record. It is not the complete legal health record.[facility]
== END 2025-09-07 14:34 | disposition home or self-care (01) ==
LOC: HO.HOP 14:29
PROVIDERS: PCP Internal Medicine; Visit Provider Psychiatry & Neurology Psychiatry
DX: F33.2 Major depressive disorder, recurrent severe without psychotic features (principal); F41.1 Generalized anxiety disorder
CPT/HCPCS: 99213